=== PATIENT | female | born 1940 | race Caucasian/White ===

== ENCOUNTER 2019-10-09 09:59 | Inpatient (IN) | payer MEDICARE, OTHER ==
[~2019-10-09] VITALS: Ht 160 cm; Wt 115.7 kg
--- NOTE | ~2019-10-09 | HEMODYNAMI ---
PATIENT:STEPHON BANG MEDICAL RECORD: [id number] : 42 LOCATION:[facility] ADMISSION DATE: 10/09/19 Generatedon:10/09/201914:34 Patient name: STEPHON BANG Patient #: [id number] : 1940 Date of study: 10/09/2019 Page: Of Hemodynamic Procedure Report Patient Data Patient Demographics Procedure consent was obtained First Name: STEPHON Gender: Female Last Name: BETI : 1940 [facility] Initial: JULIETTE Age: 79 year(s) Patient #: [id number] Race: SSN: [id number] Additional ID: [id number] Contact details Address: [address] [place] [address] State: [place] City: [place] Zip code: [address] Past Medical History Allergies: No known allergies Admission Admission Data Admission Date: 10/09/2019 Admission Time: 9:59 Arrival Date: 10/09/2019 Arrival Time: 0:00 Admit Source: Other Insurance Payor: Medicare Height (in.): 62.99 BSA: 2.14 (m2) Height (cm.): 160 BMI: 44.92 (kg/m2) Weight (lbs.): 253.53 Weight (kg.): 115 Lab Results Lab Result Date: 10/09/2019 Lab Result Time: 0:00 Biochemistry Name Units Result Min Max BUN mg/dl 15 --(--*-)-- 7 18 eGFR ml/min 51 *-(----)-- 90 120 NONAFRICAN CBC Name Units Result Min Max Hemoglobin g/dl 13.6 --(*---)-- 13.5 17.5 Procedure Procedure Types Cath Procedure Diagnostic Procedure LHC Coronaries only Aortic Root Angiography Procedure Description Procedure Date Procedure Date: 10/09/2019 Procedure Start Time: 14:07 Procedure End Time: 14:31 Procedure Staff Name Function Yaron Garcia MD Performing Physician Brittney Hernandez RT Monitor Margie Raul RT Scrub Fareed Castillo RN Nurse Clarissa Grubbs RT Scrub Procedure Data Cath Procedure Fluoroscopy Diagnostic fluoroscopy Total fluoroscopy Time: 6.5 time: 6.5 min min Diagnostic fluoroscopy Total fluoroscopy dose: dose: 1780 mGy 1780 mGy Contrast Material Contrast Material Type Amount (ml) Isovue 300 104 Entry Location Entry Primary Successful Side Size Upsize Upsize Entry Closure Succes sful Closure Location (Fr) 1 (Fr) 2 (Fr) Remarks Device Remarks Femoral Right 5 Fr Exoseal artery Estimated blood loss: 10 ml Diagnostic catheters Device Type Used For End Catheter Placement MULTIPACK 3DRC 5Fr Procedure catheter MULTIPACK JL 4.0 5Fr Procedure catheter MULTIPACK Pigtail 5 Fr Ventriculography catheter Procedure Complications No complications Procedure Medications Medication Administration Route Dosage Oxygen etCO2 Nasal cannula 4 l/min Lidocaine 2% added to field 20 Heparin Flush Bag added to field 2 bags (1000units/500ml NS) 0.9% NaCl I.V. 100 ml/hr Fentanyl I.V. 50 mcg Hemodynamics Rest BSA: 2.14 (m2) HGB: 13.6 (g/dl) O2 Consumption: Estimated: 212.16 (ml/min) O2 Co nsumption indexed: Estimated:99.14 (ml/min/m) Heart Rate: 93 (bpm) Snapshots Pre Cath Intra NCS Post Cath Vital Signs Time Heart Resp SPO2 etCO2 NIBP (mmHg) Rhythm Pain Sedation Rate (ipm) (%) (mmHg) Status Level (bpm) 13:47:27 81 27 88 0 129/81(108) NSR 0 (11) 10(A) , No pain 13:51:33 90 17 92 0 141/78(105) NSR 0 (11) 10(A) , No pain 13:55:47 89 23 90 0 140/69(106) NSR 0 (11) 10(A) , No pain 13:59:55 79 23 90 0 123/82(101) NSR 0 (11) 10(A) , No pain 14:03:56 79 24 88 0 130/82(103) NSR 0 (11) 10(A) , No pain 14:08:02 73 17 89 0 137/78(117) NSR 0 (11) 10(A) , No pain 14:12:08 82 26 89 0 136/87(109) NSR 0 (11) 10(A) , No pain 14:16:16 78 26 86 0 130/81(104) NSR 0 (11) 10(A) , No pain 14:21:15 82 24 90 0 134/78(100) NSR 0 (11) 10(A) , No pain 14:25:18 94 24 89 0 126/89(115) NSR 0 (11) 10(A) , No pain 14:29:22 82 27 89 0 132/81(108) NSR 0 (11) 10(A) , No pain Medications Time Medication Route Dose Verified Delivered Reason Notes Eff ectiveness by by 13:46:46 Oxygen etCO2 4 Yaron Buffie used for Nasal l/min Jose Castillo RN procedure cannula 13:46:52 Lidocaine 2% added 20ml Yaron Yaron for local to vial Jose Garcia MD anesthetic field 13:47:00 Heparin Flush added 2 Yaron Yaron used for Bag to bags Jose Garcia MD procedure (1000units/500ml field NS) 13:47:23 0.9% NaCl I.V. 100 Yaron Buffie Per ml/hr Jose Castillo RN physician 14:00:47 Fentanyl I.V. 50 Yaron Buffie for back mcg Jose Castillo RN pain Procedure Log Time Note 13:32:20 Diagnostic Cath Status : Elective 13:33:11 Informed consent obtained and on chart 13:38:29 Patient Weight : 253.53 lbs 13:38:35 Patient Height : 62.99 inches 13:38:39 Arrival Date: 10/09/2019 12:00:00 AM 13:38:40 Admit Source: Other 13:38:46 Insurance Payor : Medicare 13:39:25 Lab Result : BUN 15 mg/dl 13:39:25 Lab Result : eGFR NONAFRICAN 51 ml/min 13:39:25 Lab Result : Hemoglobin 13.6 g/dl 13:39:40 Procedure Status Elective Heart Cath (OP). 13:39:43 Fareed Castillo RN sent for patient. Start room use. 13:39:44 Time tracking: Regular hours (M-F 7:00 - 5:00) 13:39:49 Plan of Care:Hemodynamics will remain stable., Cardiac rhythm will remain stable., Comfort level will be maintained., Respiratory function will remain adequate., Patient/ family verbilizes understanding of procedure., Procedure tolerated without complication., Recovers from procedure without complications.. 13:39:56 Patient received from Pre/Post Procedure Room to CCL 2 Alert and oriented. Tansferred to table in Supine position. 13:40:01 Warm blankets applied, and danni hugger turned on for patient comfort. 13:40:02 Correct patient and procedure confirmed by team. 13:40:04 ECG and BP/O2 sat monitors applied to patient. 13:40:52 H&P Date Dictated: 09/26/2019 Within 30 days and on chart., H&P Addendum completed by physician on day of procedure. (MUST COMPLETE FOR ALL OUTPATIENTS). 13:40:54 Pre-procedure instructions explained to patient. 13:40:56 Family in patients room. 13:40:58 Patient NPO since Midnight. 13:41:05 Patient allergic to No known allergies 13:41:09 Is the patient allergic to Iodine/contrast media? No. 13:41:10 Was the patient premedicated? Yes 13:41:24 Is patient on blood thinner?Yes 13:43:10 Patient diabetic? Yes. 13:43:13 If diabetic: On Metformin? No 13:43:18 Previous problem with sedation/anesthesia? No ? 13:43:24 Snore? Yes 13:43:27 Sleep apnea? Yes 13:43:48 ACC The patient was administered the following blood thiners within the last 24 hours: ACCPlavix 13:44:16 Airway obstruction? No ? 13:44:19 Dentures? No ? 13:44:23 Patient pain scale 0/10 ?. 13:44:31 IV patent on arrival in left hand with 0.9% NaCl at KVO. 13:44:37 Lab results completed and on chart. 13:44:46 Stress Test: yes; abnormal laterally 13:44:51 Right groin area was prepped with chlora-prep and draped in sterile fashion 13:44:53 Alarms reviewed by R. N. 13:44:53 Sharps counted by scrub and verified by R.N. 13:44:56 Physician arrived 13:45:04 Use device set Femoral Dx 13:45:07 ACIST Syringe (20901) opened to sterile field. 13:45:08 Bag Decanter (2002S) opened to sterile field. 13:45:09 Medline Cath Pack ([id number]) opened to sterile field. 13:45:10 ACIST Hand Control (89985) opened to sterile field. 13:45:10 ACIST Manifold (44751) opened to sterile field. 13:45:11 DIAGNOSTIC Multipack 5Fr catheter set (UP3005) opened to sterile field. 13:45:17 SHEATH 5FR Mcdonald (UQW743) opened to sterile field. 13:45:19 EMERALD Guide Wire (533-666) opened to sterile field. 13:46:26 Vital chart was started 13:46:46 Oxygen 4 l/min etCO2 Nasal cannula was administered by Fareed Castillo RN; used for procedure; Verbal order read back and verified. 13:46:52 Lidocaine 2% 20ml vial added to field was administered by Yaron Garcia MD; for local anesthetic; Verbal order read back and verified. 13:47:00 Heparin Flush Bag (1000units/500ml NS) 2 bags added to field was administered by Yaron Garcia MD; used for procedure; Verbal order read back and verified. 13:47:23 0.9% NaCl 100 ml/hr I.V. was administered by Fareed Castillo RN; Per physician; Verbal order read back and verified. 13:49:09 Pt transported to laborer plumbing on 3 liters oxygen, Oxygen saturation 89%. Dr Garcia notified and pt placed on 4 liters o2. Pt with abdomen tender and distended with abd pain noted per pt. States last BM yesterday. 13:55:46 --------ALL STOP TIME OUT------ 13:55:50 Final Timeout: patient, procedure, and site verified with staff and physician. All members of the team are in agreement. 13:55:52 Right groin site verified by team. 13:55:58 Fire Safety Assessment: A--An alcohol-based skin anteseptic being used preoperatively., C--Open oxygen or nitrous oxide is being used., D--An ESU, laser, or fiber-optic light is being used. 13:56:07 Physical assessment completed. ASA score P 3 - A patient with severe systemic disease as per Yaron Garcia MD. 13:56:12 2) 60-89 Mildly reduced kidney function, and other findings (as for stage 1) point to kidney disease. 13:56:16 Maximum allowable contrast dose (3.7 X eGFR X 0.75)141 ml. 13:59:15 Baseline sample Acquired. 13:59:18 Rhythm: sinus rhythm 13:59:20 Full Disclosure recording started 14:00:47 Fentanyl 50 mcg I.V. was administered by Fareed Castillo RN; for back pain; Verbal order read back and verified. 14:03:25 Zero performed for pressure channel P1 14:07:26 Procedure started. 14:07:44 Local anesthetic to right femoral artery with Lidocaine 2% by Yaron Garcia MD.INITIAL ACCESS ONLY 14:13:21 A 5 Fr sheath was inserted into the Right Femoral artery 14:14:37 WHOLEY 300cm 0.035 wire ([id number]) opened to sterile field. 14:15:33 A MULTIPACK 3DRC 5Fr catheter was advanced over the wire and used for Procedure. 14:15:39 wholey wire advanced. 14:17:12 RCA angiography performed. 14:18:43 Catheter removed. 14:18:50 A MULTIPACK JL 4.0 5Fr catheter was advanced over the wire and used for Procedure. 14:19:19 LCA angiography performed. 14:22:17 Catheter removed. 14:22:25 A MULTIPACK Pigtail 5 Fr catheter was advanced over the wire and used for Ventriculography. 14:27:54 Aortic Root visualized 14:28:31 Tegaderm 4 x 4 (1626W) opened to sterile field. 14:28:32 EXOSEAL 5Fr (EX500) opened to sterile field. 14:28:37 Catheter removed. 14:28:54 Sheath removed intact; hemostasis achieved with Exoseal to the Right Femoral artery. 14:28:56 Procedure ended.(Physican Out) 14:29:21 Fluoroscopy time 06.50 minutes. :: Fluoroscopy dose: 1780 mGy 14:: Flurop Dose total: 1780 14:29:32 Dose Area Product 971641 mGy/cm. 14:29:37 Contrast amount:Isovue 300 104ml. 14:29:39 Maximum allowable dose exceeded? No. 14::40 Sharps counted by scrub and verified by R.N. 14:30:05 Insertion/operative site no bleeding no hematoma. 14:30:09 Post-op/insertion site Right Femoral artery dressed using a 4 x 4 and Tegaderm. 14:30:11 Post Procedure Pulses reassessed and unchanged 14:30:18 Post-procedure physical assessment completed. ASA score P 4 - A patient with severe systemic disease that is a constant threat to life as per Yaron Garcia MD. 14:30:23 Post procedure rhythm: unchanged. 14:30:26 Estimated blood loss: 10 ml 14:30:27 Post procedure instruction explained to patient.Patient verbalizes understanding. 14:30:56 Procedure type changed to Cath procedure, Diagnostic procedure, LHC, Coronaries only, Aortic Root Angiography 14:30:58 Procedure and supply charges have been captured, reviewed, submitted and are correct. 14:31:19 Procedure Complication : No complications 14:31:22 Vital chart was stopped 14:31:28 [facility] Findings: MVD- MD will discuss options w/ pt 14:31:32 Operative report dictated upon procedure completion. 14:31:33 See physician's report for complete and final results. 14:31:34 Report given to Pre/Post Procedure Room. 14:31:38 Patient transfered to Pre/Post Procedure Room with Stretcher. 14:31:40 Procedure ended. 14:31:40 Full Disclosure recording stopped Device Usage Item Name Manufacture Quantity Catalog Hospital Part Current Minimal L ot# / Number Charge Number Stock Stock Serial# Code ACIST Acist 1 00571 895386 483723 780663 20 Syringe Medical (72372) Systems Inc Bag Microtek 1 2001S 844001 22380 993416 5 Decanter Medical Inc. () Medline Medline 1 [id number] 247204 00050 156448 5 Cath Pack ([id number]) ACIST Hand Acist 1 33249 115938 863496 626847 5 Control Medical (63887) Systems Inc ACIST Acist 1 22241 904463 782303 863140 5 Manifold Medical (11610) Systems Inc DIAGNOSTIC Cardinal 1 JK8066 227497 43084 967726 30 Workboard Health 5Fr catheter set (PJ1520) SHEATH 5FR Terumo 1 GVV175 979103 614581 173575 5 Mcdonald (ELJ117) EMERALD Cardinal 1 502-455 427673 427931 576354 5 Guide Wire Health (502455) WHOLEY Medtronic 1 [id number] 332675 826514 900588 3 300cm 0.035 wire ([id number]) MULTIPACK Cardinal 1 723435 5 3DRC 5Fr Health catheter MULTIPACK Cardinal 1 331628 5 JL 4.0 5Fr Health catheter MULTIPACK Cardinal 1 160018 5 Pigtail 5 Health Fr catheter Tegaderm 4 3M 1 1626W 840244 323315 436248 5 x 4 (1626W) EXOSEAL 5Fr Cardinal 1 EX500 467396 418797 516096 10 (EX500) Health Signature Audit [place] Stage Time Signature Unsigned Intra-Procedure 10/09/2019 Brittney Hernandez 2:31:55 PM RT(R); Fareed Castillo RN; Yaron Garcia MD Signatures Performing Physician : Signature : Yaron Garcia MD Date : Time : Monitor : Brittney Hernandez Signature : RT Date : Time : Nurse : Fareed Castillo RN Signature : Date : Time : [facility] [address] [place] [address]
[2019-10-09] MEDS ORDERED: ALENDRONATE SOD35 MG PO (10:37)
[2019-10-09] MEDS ORDERED: ZETIA10 MG PO (10:38)
[2019-10-09] MEDS ORDERED: NORVASC10 MG PO (10:38)
[2019-10-09] MEDS ORDERED: PLAVIX75 MG PO (10:38)
[2019-10-09] MEDS ORDERED: ZESTRIL20 MG PO (10:38)
[2019-10-09] MEDS ORDERED: FUROSEMIDE40 MG PO (10:39)
[2019-10-09] MEDS ORDERED: GLUCOTROL 5 MG T5 MG PO (10:39)
[2019-10-09] MEDS ORDERED: RANITIDINE HCL150 M1 PO (10:39)
[2019-10-09] MEDS ORDERED: SYNTHROID75 MCG PO (10:40)
[2019-10-09] MEDS ORDERED: ZYRTEC10 MG PO (10:40)
[2019-10-09] MEDS ORDERED: LIPITOR40 MG PO (10:40)
[2019-10-09] MEDS ORDERED: FLUTICASONE PRO16 GM NASAL (10:40)
[2019-10-09] MEDS ORDERED: VENTOLIN HFA [SP8 GM INH (10:41)
[2019-10-09] MEDS ORDERED: ACETAMINOPHEN500 M1 PO (10:41)
[2019-10-09] MEDS ORDERED: IPRAT-ALBUT 0.5-3 ML UPD (10:42)
[2019-10-09] MEDS ORDERED: KLOR-CON 1010 MEQ PO (10:42)
[2019-10-09] MEDS ORDERED: LIDODERM 5 %1 PATCH TRANSDERM (10:44)
[2019-10-09 11:03] VITALS: BP 152/77; BMI 45.2
--- NOTE | 2019-10-09 11:05 | NUR ---
SPOKE WITH DR. DOTSON REGARDING INITIAL RESPIRATORY STATUS OF 79-81% SPO2 ON ROOM AIR AND RESPIRATORY RATE OF 30 RESPIRATIONS PER MINUTE. PATIENT PLACED ON 3L NC WITH OXYGEN SATURATION OF 92% AND RESPIRATORY RATE OF 28 PER MINUTE. PHYSICIAN AWARE, WILL CONTINUE PREPPING PATIENT FOR PROCEDURE.
[2019-10-09 11:19] LABS: HEMATOCRIT 42.9 % (36.0-48.0); HEMOGLOBIN 13.6 g/dL (12-16); LYMPHOCYTES 9.7 % (15-50); MCH 30.9 pg (26.0-34.0); MCHC 31.7 g/dL (31.0-37.0); MCV 97.5 fL (80.0-100.0); MEAN PLATELET VOLUME 8.8 fL (7.4-10.4); NEUTROPHILS 84.9 % (40-80); PLATELET COUNT 273 10x3/uL (130-400); RDW 13.5 % (11.5-14.5); WBC 8.1 10x3/uL (4.8-10.8)
[2019-10-09 11:38] LABS: ANION GAP 11.2 mmol/L (8-16); CALCIUM 7.8 mg/dL (8.5-10.1); CARBON DIOXIDE 32.8 mmol/L (21.0-32.0); CREATININE - SERUM 1.1 mg/dL (0.6-1.3)
[2019-10-09 15:02] VITALS: BP 120/70; BMI 45.2
--- NOTE | 2019-10-09 16:46 | NUR ---
BED REST UP. GROIN STABLE.
[2019-10-09 17:43] VITALS: BP 122/76
[2019-10-09 20:00] VITALS: BP 113/56
--- NOTE | 2019-10-09 21:32 | NUR ---
EVENING ROUNDS, AAOX3, AFVSS, PT ON 15L HF NC. O2SAT 92. ASSIST PT UP ON THE BED RAMOS. ABD APPEARS DISTENDED AND FIRM. PT DENIES PAIN. ALTHOUGH STATES SHE IS UNCOMFORTABLE IN BED. FAMILY @BEDSIDE. PT DENIES ANY FURTHER NEEDS AT THIS TIME. CPAP AT BEDSIDE. WILL CTM. CL WITHIN REACH, BED IN LOW, SR UP X2.
[2019-10-10] VITALS: BP 124/68
[2019-10-10 04:00] VITALS: BP 132/76
[2019-10-10 10:30] VITALS: BMI 45.1
[2019-10-10 13:49] VITALS: Ht 160 cm; Wt 115.7 kg
[2019-10-10 14:13] LABS: ANION GAP 8.2 mmol/L (8-16); CALCIUM 7.7 mg/dL (8.5-10.1); CARBON DIOXIDE 36.8 mmol/L (21.0-32.0); CREATININE - SERUM 1.2 mg/dL (0.6-1.3)
[2019-10-10 14:15] LABS: HEMATOCRIT 43.3 % (36.0-48.0); HEMOGLOBIN 13.4 g/dL (12-16); INR 1.02 (0.85-1.17); LYMPHOCYTES 4.9 % (15-50); MCH 30.6 pg (26.0-34.0); MCHC 30.9 g/dL (31.0-37.0); MCV 98.9 fL (80.0-100.0); MEAN PLATELET VOLUME 8.7 fL (7.4-10.4); NEUTROPHILS 87.2 % (40-80); PLATELET COUNT 280 10x3/uL (130-400); PROTIME 13.3 SECONDS (11.6-15.0); RBC 4.38 10x6/uL (4.00-5.40); RDW 13.2 % (11.5-14.5); WBC 9.4 10x3/uL (4.8-10.8)
[2019-10-10 14:16] LABS: D-DIMER-QUANTITATIVE 0.92 ug/mLFEU (0.20-0.54)
[2019-10-10 14:38] LABS: BILIRUBIN NEGATIVE (NEGATIVE); GLUCOSE NEGATIVE (NEGATIVE); KETONE NEGATIVE (NEGATIVE); NITRITE NEGATIVE (NEGATIVE); UROBILINOGEN NORMAL (NORMAL)
[2019-10-10 14:39] LABS: BACTERIA FEW /hpf (NEGATIVE); EPITHELIAL CELLS OCC /hpf (0-5); RED CELLS - URINE OCC /hpf (0-5); WHITE CELLS - URINE 0-5 /hpf (NEGATIVE)
--- NOTE | 2019-10-10 16:36 | MORECARE ---
CASE MANAGEMENT DISCHARGE SUMMARY PATIENT: STEPHON BANG UNIT: [id number] ADM DATE: 10/10/19 AGE: 79 : 41 SEX: F [facility] AUTHOR: HARVEY RAMIREZ PHYSICIAN: REFERRING PHYSICIAN: COLLETTE ARIAS MD DATE OF SERVICE: 10/10/19 Discharge Plan Patient Name: STEPHON BANG Facility: [facility]:[place] : 1940 Planned Disposition: Anticipated Discharge Date: Discharge Date: Expected LOS: Initial Reviewer: [email or web address] Initial Review Date: 10/10/2019 Generated: 10/10/19 5:35 pm DCP- Discharge Planning Updated by [email or web address]: Priya Hernandez on 10/10/19 8:[address] JIMENEZ SERVED, EXPLAINED, AND SIGNED BY PATIENT. THE ORIGINAL WAS PROVIDED TO THE PATIENT AND COPY PLACED ON CHART. Coverage Notice Reviewer: [id number] - Priya Hrenandez Notice Issued Date-Time: 10/10/2019 7:55 Notice Type: Medicare Outpatient Observation Notice Notice Delivered To: Patient Relationship to Patient: Surgical Consultant Name: Delivery Method: MAIL - Mail Christina Days: Prior Verbal Notification: Recipient Understood Notice: Yes Recipient Signature: Yes Med Rec Note Co-signed by Attending: Coverage Notice Comment: JIMENEZ SERVED, EXPLAINED, AND SIGNED BY PATIENT. THE ORIGINAL WAS PROVIDED TO THE PATIENT AND COPY PLACED ON CHART. Patient Name: STEPHON BANG Page [phone] at 1636 All edits/amendments must be made on the electronic document DICTATION DATE: 10/10/19 1635 CUFFING MACHINE OPERATOR: SANDRA 10/10/19 1635 RPT#: [id number] DC DATE: STATUS: ADM IN [facility] [address] [place] [address] END OF REPORT
--- NOTE | 2019-10-10 16:44 | MORECARE ---
CASE MANAGEMENT DISCHARGE SUMMARY PATIENT: STEPHON BANG UNIT: [id number] ADM DATE: 10/10/19 AGE: 79 : 41 SEX: F ROOM/BED: D.1467 AUTHOR: ASHLEY,DOC PHYSICIAN: REFERRING PHYSICIAN: COLLETTE ARIAS MD DATE OF SERVICE: 10/10/19 Discharge Plan Patient Name: STEPHON BANG Facility: [facility]:[place] : 1940 Planned Disposition: Anticipated Discharge Date: Discharge Date: Expected LOS: Initial Reviewer: [email or web address] Initial Review Date: 10/10/2019 Generated: 10/10/19 5:44 pm DCP- Discharge Planning Updated by LUBA Hernandez on 10/10/19 8:[address] JIMENEZ SERVED, EXPLAINED, AND SIGNED BY PATIENT. THE ORIGINAL WAS PROVIDED TO THE PATIENT AND COPY PLACED ON CHART. DCPIA - Discharge Planning Initial Assessment Updated by JOSE A: Priya Hernandez on 10/10/19 4:36 pm * Is the patient Alert and Oriented? Yes * How many steps to enter\exit or inside your home? 0/0 * PCP ELPIDIO ACOSTA [phone] * Pharmacy [facility]/ [facility] * Preadmission Environment Home with Family * ADLs Partial Dependent * Partial ADLs (Assistance needed) Bathing Dressing * Equipment Bedside Commode CPAP Elevated Toliet Seat Nebulizer Rolling Walker Shower Chair * List name and contact numbers for known caregivers / representatives who currently or will assist patient after discharge: SON: RILEY [phone] * Verbal permission to speak to the caregivers and representatives has been obtained from the patient. Yes * Community resources currently utilized None * Additional services required to return to the preadmission environment? Yes * Can the patient safely return to the preadmission environment? No * Has this patient been hospitalized within the prior 30 days at any hospital? No Coverage Notice Reviewer: [email or web address] - Priya Hernandez Notice Issued Date-Time: 10/10/2019 7:55 Notice Type: Medicare Outpatient Observation Notice Notice Delivered To: Patient Relationship to Patient: Superintendent Stations Name: Delivery Method: MAIL - Mail Christina Days: Prior Verbal Notification: Recipient Understood Notice: Yes Recipient Signature: Yes Med Rec Note Co-signed by Attending: Coverage Notice Comment: BARBARA SERVED, EXPLAINED, AND SIGNED BY PATIENT. THE ORIGINAL WAS PROVIDED TO THE PATIENT AND COPY PLACED ON CHART. Reviewer: [email or web address] Nicole Hernandez Notice Issued Date-Time: 10/10/2019 16:15 Notice Type: Patient Choice Letter Notice Delivered To: Patient Relationship to Patient: Superintendent Stations Name: Delivery Method: HAND - Hand Delivered Christina Days: Prior Verbal Notification: Recipient Understood Notice: Yes Recipient Signature: Yes Med Rec Note Co-signed by Attending: Coverage Notice Comment: DAREN SIGNED TO [facility]UME [facility] PATIENT Last DP export: 10/10/19 3:36 p Patient Name: STEPHON BANG Page [phone] at 1644 All edits/amendments must be made on the electronic document DICTATION DATE: 10/10/191643 FURNITURE ASSOCIATE: SANDRA 10/10/194 RPT#: [id number] DC DATE: STATUS: ADM IN [facility] [address] [place] [address] END OF REPORT
--- NOTE | 2019-10-10 17:01 | MORECARE ---
CASE MANAGEMENT DISCHARGE SUMMARY PATIENT: STEPHON BANG UNIT: [id number] ADM DATE: 10/10/19 AGE: 79 : 41 SEX: F ROOM/BED: D.0114 AUTHOR: ASHLEY,DOC PHYSICIAN: REFERRING PHYSICIAN: COLLETTE ARIAS MD DATE OF SERVICE: 10/10/19 Discharge Plan Patient Name: STEPHON BANG Facility: [facility]:[place] : 1940 Planned Disposition: Home Anticipated Discharge Date: Discharge Date: Expected LOS: Initial Reviewer: [email or web address] Initial Review Date: 10/10/2019 Generated: 10/10/19 6:01 pm Comments DCP- Discharge Planning Updated by [email or web address]: Priya Hernandez on 10/10/19 3:[address] Patient Name: STEPHON BANG Admission Status: Elective Accout number: [id number] Admission Date: 10-10-2019 : 1940 Admission Diagnosis: Attending: COLLETTE ARIAS Current LOS: 1 Planned Disposition: Primary Insurance: MEDICARE A & B Discharge Planning Comments: CM met with patient and Riley (son) to complete initial dc planning assessment. CM educated patient on the CM role and verbal consent given by patient to complete assessment. CM verified patient's address, phone number, and emergency contact phone numbers. Patient lives at home with her and son (Riley). Pt has home CPAP and nebulizer. States she had oxygen at one time. DAREN signed to resume [place] home patient. CM discussed the possibility of oxygen testing at home. CM discussed the possibility of home health and/or rehab. Patient refused at this time. CM stated we will follow patient status during hospitalization and assist as needed. At discharge patient plans to return home and feels this is a safe discharge. Transportation provider at discharge will be Riley [phone] . CM will continue to follow and will assist as needed with dc plans/needs. Linux Network Administrator: Priya Hernandez MSN,RN,CM DCP- Discharge Planning Updated by [email or web address]: Priya Hernandez on 10/10/19 8:[address] JIMENEZ SERVED, EXPLAINED, AND SIGNED BY PATIENT. THE ORIGINAL WAS PROVIDED TO THE PATIENT AND COPY PLACED ON CHART. DCPIA - Discharge Planning Initial Assessment Updated by [id number]: Priya Hernandez on 10/10/19 4:36 pm * Is the patient Alert and Oriented? Yes * How many steps to enter\exit or inside your home? 0/0 * PCP ELPIDIO ACOSTA [phone] * [facility] * Preadmission Environment Home with Family * ADLs Partial Dependent * Partial ADLs (Assistance needed) Bathing Dressing * Equipment Bedside Commode CPAP Elevated Tol[place] Seat Nebulizer Rolling Walker Shower Chair * List name and contact numbers for known caregivers / representatives who currently or will assist patient after discharge: SON: RILEY [phone] * Verbal permission to speak to the caregivers and representatives has been obtained from the patient. Yes * Community resources currently utilized None * Additional services required to return to the preadmission environment? Yes * Can the patient safely return to the preadmission environment? No * Has this patient been hospitalized within the prior 30 days at any hospital? No Coverage Notice Reviewer: [id number] Hernandez Notice Issued Date-Time: 10/10/2019 7:55 Notice Type: Medicare Outpatient Observation Notice Notice Delivered To: Patient Relationship to Patient: Relief Worker Name: Delivery Method: MAIL - Mail Christina Days: Prior Verbal Notification: Recipient Understood Notice: Yes Recipient Signature: Yes Med Rec Note Co-signed by Attending: Coverage Notice Comment: JIMENEZ SERVED, EXPLAINED, AND SIGNED BY PATIENT. THE ORIGINAL WAS PROVIDED TO THE PATIENT AND COPY PLACED ON CHART. Reviewer: [email or web address] Hernandez Notice Issued Date-Time: 10/10/2019 16:15 Notice Type: Patient Choice Letter Notice Delivered To: Patient Relationship to Patient: Relief Worker Name: Delivery Method: HAND - Hand Delivered Christina Days: Prior Verbal Notification: Recipient Understood Notice: Yes Recipient Signature: Yes Med Rec Note Co-signed by Attending: Coverage Notice Comment: DAREN SIGNED TO RESUME [facility] PATIENT Last DP export: 10/10/19 3:44 p Patient Name: STEPHON BANG Page [phone] at 1701 All edits/amendments must be made on the electronic document DICTATION DATE: 10/10/191700 GLUING MACHINE OPERATOR AUTOMATIC: SANDRA 10/10/191700 RPT#: [id number] DC DATE: STATUS: ADM IN [facility] [address] [place] [address] END OF REPORT
[2019-10-10 17:33] VITALS: BP 111/74
[2019-10-10 19:19] VITALS: BP 123/69
--- NOTE | 2019-10-10 19:59 | NUR ---
EVENING ROUNDS COMPLETED. AAOX4, AFVSS, NO S/S OF RT DISTRESS. ALTHOUGH O2SAT 90 ON 10L HF. PUREWICK INTACT AND DRAINING. ABD APPEARS DISTENDED/FIRM. PT DENIES ANY FURTHER NEEDS AT THIS TIME. WILL CPOC. CL WITHIN REACH, BED IN LOW, SR UP X2.
[2019-10-11 00:33] VITALS: BP 116/520
[2019-10-11 04:56] VITALS: BP 140/75
[2019-10-11 08:23] VITALS: BP 109/70
[2019-10-11 11:53] LABS: HEMATOCRIT 42.4 % (36.0-48.0); LYMPHOCYTES 5.3 % (15-50); MCH 30.2 pg (26.0-34.0); MCHC 30.7 g/dL (31.0-37.0); MCV 98.4 fL (80.0-100.0); MEAN PLATELET VOLUME 8.9 fL (7.4-10.4); PLATELET COUNT 249 10x3/uL (130-400); RBC 4.31 10x6/uL (4.00-5.40); RDW 13.2 % (11.5-14.5); WBC 9.7 10x3/uL (4.8-10.8)
[2019-10-11 11:55] LABS: ANION GAP 9.9 mmol/L (8-16); CALCIUM 7.9 mg/dL (8.5-10.1); CARBON DIOXIDE 35.5 mmol/L (21.0-32.0); CREATININE - SERUM 1.1 mg/dL (0.6-1.3); POTASSIUM - SERUM 3.4 mmol/L (3.5-5.1)
[2019-10-11 15:35] VITALS: BP 126/81
--- NOTE | 2019-10-11 20:00 | NUR ---
REPORT RECIEVED AND ROUNDING COMPLETE. PATIENT LAYING IN BED IN LOW FOWLERS. REQUESTING RT COME AND PU HIM ON BIPAP AND FIX MASK BECAUSED IT DOSENT FIT. WILL PAGE RT. WEARING NASAL CANNULA WITH O2 AT 15L. RIGHT AC PIV THAT IS SALINE LOCKED, PATENT WHEN FLUSHED WITH NO S/SX OF INFILTRATION. NO OTHER NEEDS AT THIS TIME. NO S/SX OF DISTRESS. CALL LIGHT WITHIN REACH AND BED IN LOWEST LOCKED POSITION.
[2019-10-11 21:39] VITALS: BP 115/65
[2019-10-12] VITALS: BP 109/62
[2019-10-12 04:00] VITALS: BP 114/56
[2019-10-12 06:02] LABS: CALCIUM 7.9 mg/dL (8.5-10.1); CARBON DIOXIDE 34.4 mmol/L (21.0-32.0); CREATININE - SERUM 1.1 mg/dL (0.6-1.3); POTASSIUM - SERUM 3.4 mmol/L (3.5-5.1)
[2019-10-12 07:56] LABS: HEMATOCRIT 41.3 % (36.0-48.0); HEMOGLOBIN 12.3 g/dL (12-16); MCH 30.6 pg (26.0-34.0); MCHC 29.8 g/dL (31.0-37.0); MEAN PLATELET VOLUME 9.9 fL (7.4-10.4); PLATELET COUNT 247 10x3/uL (130-400); RBC 4.02 10x6/uL (4.00-5.40); RDW 14.3 % (11.5-14.5); WBC 8.5 10x3/uL (4.8-10.8)
[2019-10-12 08:02] LABS: MCV 102.7 fL (80.0-100.0)
[2019-10-12 09:16] VITALS: BP 112/54
[2019-10-12 11:01] LABS: ANISOCYTOSIS OCC; EOSINOPHILS 1 % (0-7); LYMPHOCYTES 5 % (15-50); MONOCYTES 10 % (2-11); NEUTROPHILS 83 % (40-80); PLATELET ESTIMATE NORMAL
[2019-10-12 14:18] VITALS: BP 103/53
[2019-10-12 18:14] VITALS: BP 105/59
--- NOTE | 2019-10-12 19:21 | NUR ---
RECEIVED BEDSIDE REPORT. PATIENT IS ALERT AND PLEASANTLY CONFUSED. RESPIRATIONS ARE EVEN AND UNLABORED. NO S/S OF DISTRESS. NO C/O PAIN. CALLLIGHT WITHIN REACH. WILL CPOC.
[2019-10-12 20:00] VITALS: BP 111/60
[2019-10-13 05:41] LABS: BASOPHILS 0.3 % (0-2); EOSINOPHILS 3.6 % (0-7); HEMATOCRIT 39.8 % (36.0-48.0); IMMATURE GRANULOCYTES 0.3 % (0-5); LYMPHOCYTES 8.2 % (15-50); MCH 30.5 pg (26.0-34.0); MCHC 30.2 g/dL (31.0-37.0); MEAN PLATELET VOLUME 9.4 fL (7.4-10.4); MONOCYTES 11.2 % (2-11); NEUTROPHILS 76.4 % (40-80); PLATELET COUNT 234 10x3/uL (130-400); RBC 3.94 10x6/uL (4.00-5.40); RDW 14.3 % (11.5-14.5); WBC 7.3 10x3/uL (4.8-10.8)
[2019-10-13 06:11] LABS: ANION GAP 10.5 mmol/L (8-16); CALCIUM 7.6 mg/dL (8.5-10.1); CARBON DIOXIDE 31.5 mmol/L (21.0-32.0); CREATININE - SERUM 1.4 mg/dL (0.6-1.3)
--- NOTE | 2019-10-13 07:15 | NUR ---
RECEIVED PT IN BED EYES CLOSED RESP UNLABORED O2 15 LPM HIGH FLOW CANNULA DENNIES ANY PAIN OR NEEDS AT THIS TIME
[2019-10-13 08:56] VITALS: BP 125/72
[2019-10-13 13:07] VITALS: BP 136/78
--- NOTE | 2019-10-13 13:58 | NUR ---
Nutrition follow-up: Diet: ADA consistent CHO PO Intake ~60% average of last 6 meals Labs reviewed Wt: 255# Will continue to provide food choices and honor food preferences within diet restrictions. RDN following.
[2019-10-13 17:01] VITALS: BP 146/58
--- NOTE | 2019-10-13 19:30 | NUR ---
REPORT RECIEVED AND INITIAL ROUNDS COMPLETED. PT RESTING IN BED WITH BIPAP IN PLACE. RIGHT A/C PIV WITH NS @ KVO. ABRASION TO LEFT HAND. SR PER TELEMETRY. SEE ASSESSMENT. CPOC. CALL LIGHT IN REACH.
[2019-10-13 21:00] VITALS: BP 144/68
--- NOTE | 2019-10-13 22:00 | NUR ---
BEDTIME MEDS ADMINISTERED. PT RESTING WITH BIPAP IN PLACE. SR PER TELEMETRY. CALL LIGHT IN REACH. CPOC.
--- NOTE | 2019-10-14 02:18 | NUR ---
REQUESTED PAIN MED GIVEN FOR GENERALIZED DISCOMFORT 04/27.
--- NOTE | 2019-10-14 04:22 | NUR ---
PT ASSISTED UP TO BSC TO HAVE A FORMED BM. PUREWICK NO LONGER IN PLACE AND BED IS WET. CARE PROVIDED, LINENS CHANGED. RT TO ROOM TO ADJUST BIPAP HEADGEAR WHEN PT KEPT SAYING IT WAS TOO MUCH PRESSURE ON HER TEETH AND EYES, EVEN AFTER MULTIPLE ATTEMPTS BY NURSE TO REPOSITION. PT NOW RESTING. CALL LIGHT IN REACH. CLEAN/DRY AND NEW PUREWICK IN PLACE TO WALL SUCTION.
[2019-10-14 05:04] LABS: BASOPHILS 0.2 % (0-2); EOSINOPHILS 4.4 % (0-7); HEMATOCRIT 39.5 % (36.0-48.0); HEMOGLOBIN 11.8 g/dL (12-16); IMMATURE GRANULOCYTES 0.3 % (0-5); MCH 30.2 pg (26.0-34.0); MCHC 29.9 g/dL (31.0-37.0); MEAN PLATELET VOLUME 9.5 fL (7.4-10.4); MONOCYTES 8.3 % (2-11); NEUTROPHILS 78.8 % (40-80); PLATELET COUNT 240 10x3/uL (130-400); RBC 3.91 10x6/uL (4.00-5.40); RDW 14.5 % (11.5-14.5); WBC 6.6 10x3/uL (4.8-10.8)
[2019-10-14 05:21] LABS: ANION GAP 8.6 mmol/L (8-16); CARBON DIOXIDE 31.1 mmol/L (21.0-32.0); CREATININE - SERUM 1.2 mg/dL (0.6-1.3); POTASSIUM - SERUM 3.7 mmol/L (3.5-5.1)
--- NOTE | 2019-10-14 07:15 | NUR ---
RECEIVED PT IN BED EYES CLOSED RESP UNLABORED SKIN W/D COLOR WNL NAD NTED
[2019-10-14 08:00] VITALS: BP 111/63
[2019-10-14 12:23] VITALS: BP 106/61
[2019-10-14 17:15] VITALS: BP 110/70
--- NOTE | 2019-10-14 19:45 | NUR ---
REPORT RECIEVED AND INITIAL ROUNDS COMPLETED. AWAKE/ALERT, CURRENTLY ON HIGH FLOW N/C AND ALREADY ASKING WHEN SHE CAN GET ON HER BIPAP. BREATHING TX'S AND BEDTIME MEDS WILL BE GIVEN AND THEN PLACED ON BIPAP. PT HAD VERY LARGE/SOFT FORMED BM DURING CHANGE OF SHIFT. SECURED PLACEMENT OF PUREWICK AT THIS TIME BECAUSE PT FELT IS WAS "NOT RIGHT".
[2019-10-14 20:20] VITALS: BP 128/78
--- NOTE | 2019-10-14 21:30 | NUR ---
ALL BEDTIME MEDS GIVEN. PT CLEAN/DRY. RT CALLED THAT PT IS READY FOR BIPAP.
--- NOTE | 2019-10-14 23:51 | NUR ---
PT NOW RESTING WITH EYES CLOSED. BIPAP IN PLACE. NO DISTRESS. CPOC.
[2019-10-15 00:54] VITALS: BP 128/60
[2019-10-15 04:39] LABS: BASOPHILS 0.3 % (0-2); EOSINOPHILS 4.2 % (0-7); HEMATOCRIT 39.4 % (36.0-48.0); HEMOGLOBIN 11.6 g/dL (12-16); IMMATURE GRANULOCYTES 0.3 % (0-5); LYMPHOCYTES 7.8 % (15-50); MCH 30.1 pg (26.0-34.0); MCHC 29.4 g/dL (31.0-37.0); MCV 102.1 fL (80.0-100.0); MEAN PLATELET VOLUME 9.1 fL (7.4-10.4); MONOCYTES 9.5 % (2-11); NEUTROPHILS 77.9 % (40-80); PLATELET COUNT 228 10x3/uL (130-400); RBC 3.86 10x6/uL (4.00-5.40); RDW 14.3 % (11.5-14.5); WBC 6.6 10x3/uL (4.8-10.8)
[2019-10-15 04:57] LABS: ANION GAP 10.9 mmol/L (8-16); CALCIUM 8.1 mg/dL (8.5-10.1); CARBON DIOXIDE 30.4 mmol/L (21.0-32.0); CREATININE - SERUM 1.2 mg/dL (0.6-1.3)
[2019-10-15 04:59] LABS: POTASSIUM - SERUM 4.3 mmol/L (3.5-5.1)
--- NOTE | 2019-10-15 06:57 | NUR ---
REPORT TO ONCOMING NURSE. PT HAS RESTED WELL THIS NIGHT, KEPT BIPAP ON MOST OF THE NIGHT. PT WITH PUREWICK IN PLACE. AWAKE NOW WITH O2 @ 6L/HFNC. CPOC.
--- NOTE | 2019-10-15 07:20 | NUR ---
RECIEVE REPORT. ALERT AND ORIENTED X4. RECIEVING UPDRAFT. DENIES ANY NEEDS AT THIS TIME. CONTINUE PLAN OF CARE AND SAFETY PRECAUTIONS.
[2019-10-15 08:00] VITALS: BP 132/69
--- NOTE | 2019-10-15 10:31 | NUR ---
ALERT AND ORIENTED X4. SITTING UP IN CHAIR. LINEN CHANGE AND SPONGE BATH COMPLETE. DENIES ANY OTHER NEEDS AT THIS TIME. CONTINUE PLAN OF CARE AND SAFETY PRECAUTIONS.
[2019-10-15 15:38] VITALS: BP 129/69
--- NOTE | 2019-10-15 19:30 | NUR ---
VENOUS DOPPLER COMPLETED PER ULTRASOUND REPORT RECIEVED AND INITIAL ROUNDS COMPLETED. PT RESTING IN BED WITH NO DISTRESS. C/O FEELING "GOOPY" AFTER ULTRASOUND COMPLETED. COMPLETE WIPE DOWN DONE ON PT'S "GOOPY" AREAS. CURRENTLY WEARING O2 @ 8L/HFNC AND SAT ONLY 88%. PT STATES FEELING SOB. PLACED ON BIPAP. PUREWICK IN PLACE AND DRAINING. PT C/O BEING HOT, REMOVED ONE EXTRA BLANKET OFF HER AT HER REQUEST. CALL LIGHT IN REACH.
[2019-10-15 21:00] VITALS: BP 127/82; BP 137/73
--- NOTE | 2019-10-15 22:43 | NUR ---
BEDTIME MEDS GIVEN. PT RESTING IN BED WITH NO FURTHER NEEDS VOICED. CPOC.
[2019-10-16 04:04] VITALS: BP 112/74
[2019-10-16 04:37] LABS: BASOPHILS 0.3 % (0-2); EOSINOPHILS 4.2 % (0-7); HEMATOCRIT 40.1 % (36.0-48.0); HEMOGLOBIN 11.9 g/dL (12-16); IMMATURE GRANULOCYTES 0.3 % (0-5); LYMPHOCYTES 9.2 % (15-50); MCH 30.1 pg (26.0-34.0); MCHC 29.7 g/dL (31.0-37.0); MCV 101.5 fL (80.0-100.0); MEAN PLATELET VOLUME 9.6 fL (7.4-10.4); MONOCYTES 7.6 % (2-11); NEUTROPHILS 78.4 % (40-80); PLATELET COUNT 242 10x3/uL (130-400); RBC 3.95 10x6/uL (4.00-5.40); RDW 14.1 % (11.5-14.5); WBC 6.9 10x3/uL (4.8-10.8)
[2019-10-16 04:47] LABS: ANION GAP 11.3 mmol/L (8-16); CALCIUM 7.8 mg/dL (8.5-10.1); CARBON DIOXIDE 29.5 mmol/L (21.0-32.0); POTASSIUM - SERUM 4.8 mmol/L (3.5-5.1)
[2019-10-16 08:14] VITALS: BP 123/52
--- NOTE | 2019-10-16 10:09 | NUR ---
ALERT AND ORIENTED X4. PHYSICAL THERAPY ASSIST OOB TO CHAIR. SPONGE BATH AND LINEN CHANGE COMPLETE. SINUS RYTHM 90 ON TELEMETRY. DENIES ANY NEEDS AT THIS TIME. CONTINUE PLAN OF CARE AND SAFETY PRECAUTIONS.
[2019-10-16 15:13] VITALS: BP 120/67
[2019-10-16 19:00] VITALS: BP 136/72
--- NOTE | 2019-10-16 19:27 | NUR ---
RECEIVED BEDSIDE REPORT. PATIENT IS ALERT AND ORIENTED. RESTING COMFORTABLY IN BED. RESPIRATIONS ARE EVEN AND UNLABORED. NO S/S OF DISTRESS. NO C/OPAIN. CALL LIGHT WITHIN REACH. WILL CPOC.
[2019-10-17 04:42] LABS: BASOPHILS 0.1 % (0-2); EOSINOPHILS 3.7 % (0-7); HEMATOCRIT 40.5 % (36.0-48.0); HEMOGLOBIN 12.2 g/dL (12-16); IMMATURE GRANULOCYTES 0.3 % (0-5); LYMPHOCYTES 9.2 % (15-50); MCH 30.1 pg (26.0-34.0); MCHC 30.1 g/dL (31.0-37.0); MEAN PLATELET VOLUME 9.7 fL (7.4-10.4); MONOCYTES 8.5 % (2-11); NEUTROPHILS 78.2 % (40-80); PLATELET COUNT 257 10x3/uL (130-400); RBC 4.05 10x6/uL (4.00-5.40); WBC 7.1 10x3/uL (4.8-10.8)
[2019-10-17 05:01] LABS: ALBUMIN 2.6 g/dL (3.4-5.0); ANION GAP 11.7 mmol/L (8-16); BILIRUBIN - TOTAL 0.4 mg/dL (0.2-1.3); CALCIUM 8.4 mg/dL (8.5-10.1); CARBON DIOXIDE 29.1 mmol/L (21.0-32.0); CREATININE - SERUM 1.2 mg/dL (0.6-1.3); MAGNESIUM - SERUM 2.3 mg/dL (1.8-2.4); PHOSPHOROUS 3.6 mg/dL (2.5-4.9); POTASSIUM - SERUM 4.8 mmol/L (3.5-5.1); PROTEIN - SERUM 6.4 g/dL (6.4-8.2)
[2019-10-17 05:29] VITALS: BP 145/78
[2019-10-17 07:54] VITALS: BP 128/61
--- NOTE | 2019-10-17 10:18 | NUR ---
UP TO CHAIR WITH PT ASSIST. WILL CONT. PLAN OF CARE.
[2019-10-17 10:56] VITALS: BP 139/58
--- NOTE | 2019-10-17 14:21 | NUR ---
CONSENTS SIGNED. TO FRONT LINE SUPERVISOR BY BED FOR PACEMAKER PLACEMENT.
[2019-10-17 14:52] VITALS: BP 127/66
--- NOTE | 2019-10-17 15:15 | NUR ---
IV RESTARTED TO RIGHT HAND WITH 22 GAUGE CATH X 1 STICK AND FLUSHED WITH NS. LINE IS PATENT.
[2019-10-17 19:00] VITALS: BP 151/69
--- NOTE | 2019-10-17 19:26 | NUR ---
RECEIVED BEDSIDE REPORT. PATIENT IS ALERT AND ORIENTED, RESTING COMFORTABLY IN BED. RESPIRATIONS ARE EVEN AND UNLABORED. NO S/S OF DISTRESS. NO C/O PAIN. CALL LIGHT WITHIN REACH. WILL CPOC.
[2019-10-18 04:37] VITALS: BP 144/86
[2019-10-18 07:06] LABS: BASOPHILS 0.1 % (0-2); EOSINOPHILS 4.6 % (0-7); HEMATOCRIT 43.6 % (36.0-48.0); HEMOGLOBIN 12.9 g/dL (12-16); IMMATURE GRANULOCYTES 0.4 % (0-5); LYMPHOCYTES 7.9 % (15-50); MCH 29.5 pg (26.0-34.0); MCHC 29.6 g/dL (31.0-37.0); MCV 99.5 fL (80.0-100.0); MEAN PLATELET VOLUME 9.8 fL (7.4-10.4); MONOCYTES 8.4 % (2-11); NEUTROPHILS 78.6 % (40-80); PLATELET COUNT 292 10x3/uL (130-400); RBC 4.38 10x6/uL (4.00-5.40); RDW 13.9 % (11.5-14.5); WBC 7.6 10x3/uL (4.8-10.8)
[2019-10-18 07:47] LABS: ALBUMIN 2.9 g/dL (3.4-5.0); ANION GAP 12.6 mmol/L (8-16); BILIRUBIN - TOTAL 0.44 mg/dL (0.2-1.3); CALCIUM 8.2 mg/dL (8.5-10.1); CARBON DIOXIDE 30.4 mmol/L (21.0-32.0); CREATININE - SERUM 1.2 mg/dL (0.6-1.3); PROTEIN - SERUM 6.1 g/dL (6.4-8.2)
[2019-10-18 09:30] VITALS: BP 133/71
--- NOTE | 2019-10-18 10:01 | NUR ---
UP TO CHAIR WITH PT ASSIST.
[2019-10-18 13:44] VITALS: BP 133/76
--- NOTE | 2019-10-18 15:43 | MORECARE ---
CASE MANAGEMENT DISCHARGE SUMMARY PATIENT: STEPHON BANG UNIT: [id number] ADM DATE: 10/10/19 AGE: 79 : 41 SEX: F ROOM/BED: D.4466 AUTHOR: ASHLEY,DOC PHYSICIAN: REFERRING PHYSICIAN: COLLETTE ARIAS MD DATE OF SERVICE: 10/18/19 Discharge Plan Patient Name: STEPHON BANG Facility: [facility]:[place] : 1940 Planned Disposition: Inpatient Rehab Anticipated Discharge Date: 10/19/19 Discharge Date: Expected LOS: 9 Initial Reviewer: [id number] Initial Review Date: 10/10/2019 Generated: 10/18/19 4:43 pm DCP- Discharge Planning Updated by [id number]: Priya Hernandez on 10/10/19 3:[address] Patient Name: STEPHON BANG Admission Status: Elective Accout number: [id number] Admission Date: 10-10-2019 : 1940 Admission Diagnosis: Attending: COLLETTE ARIAS Current LOS: 1 Planned Disposition: Primary Insurance: MEDICARE A & B Discharge Planning Comments: CM met with patient and Riley (son) to complete initial dc planning assessment. CM educated patient on the CM role and verbal consent given by patient to complete assessment. CM verified patient's address, phone number, and emergency contact phone numbers. Patient lives at home with her and son (Riley). Pt has home CPAP and nebulizer. States she had oxygen at one time. DAREN signed to resume [place] home patient. CM discussed the possibility of oxygen testing at home. CM discussed the possibility of home health and/or rehab. Patient refused at this time. CM stated we will follow patient status during hospitalization and assist as needed. At discharge patient plans to return home and feels this is a safe discharge. Transportation provider at discharge will be Riley [phone] . CM will continue to follow and will assist as needed with dc plans/needs. Registration Coordinator: Priya Hernandez MSN,RN,CM DCP- Discharge Planning Updated by [id number]: Priya Hernandez on 10/10/19 8:[address] JIMENEZ SERVED, EXPLAINED, AND SIGNED BY PATIENT. THE ORIGINAL WAS PROVIDED TO THE PATIENT AND COPY PLACED ON CHART. DCPIA - Discharge Planning Initial Assessment Updated by [id number]: Priya Hernandez on 10/10/19 4:36 pm * Is the patient Alert and Oriented? Yes * How many steps to enter\exit or inside your home? 0/0 * PCP ELPIDIO ACOSTA [phone] * Pharmacy [facility]/ [facility] * Preadmission Environment Home with Family * ADLs Partial Dependent * Partial ADLs (Assistance needed) Bathing Dressing * Equipment Bedside Commode CPAP Elevated Tol[place] Seat Nebulizer Rolling Walker Shower Chair * List name and contact numbers for known caregivers / representatives who currently or will assist patient after discharge: SON: RILEY [phone] * Verbal permission to speak to the caregivers and representatives has been obtained from the patient. Yes * Community resources currently utilized None * Additional services required to return to the preadmission environment? Yes * Can the patient safely return to the preadmission environment? No * Has this patient been hospitalized within the prior 30 days at any hospital? No Coverage Notice Reviewer: [id number] Nicole Hernandez Notice Issued Date-Time: 10/10/2019 7:55 Notice Type: Medicare Outpatient Observation Notice Notice Delivered To: Patient Relationship to Patient: Garment Fitter Name: Delivery Method: MAIL - Mail Christina Days: Prior Verbal Notification: Recipient Understood Notice: Yes Recipient Signature: Yes Med Rec Note Co-signed by Attending: Coverage Notice Comment: JIMENEZ SERVED, EXPLAINED, AND SIGNED BY PATIENT. THE ORIGINAL WAS PROVIDED TO THE PATIENT AND COPY PLACED ON CHART. Reviewer: [id number] Nicole Hernandez Notice Issued Date-Time: 10/10/2019 16:15 Notice Type: Patient Choice Letter Notice Delivered To: Patient Relationship to Patient: Garment Fitter Name: Delivery Method: HAND - Hand Delivered Christina Days: Prior Verbal Notification: Recipient Understood Notice: Yes Recipient Signature: Yes Med Rec Note Co-signed by Attending: Coverage Notice Comment: DAREN SIGNED TO RESUME [facility] PATIENT Reviewer: [id number] - Nico Vaughn Notice Issued Date-Time: 10/18/2019 15:30 Notice Type: IM Discharge Notice Notice Delivered To: Patient Relationship to Patient: Garment Fitter Name: Delivery Method: HAND - Hand Delivered Christina Days: Prior Verbal Notification: Recipient Understood Notice: Yes Recipient Signature: Yes Med Rec Note Co-signed by Attending: Coverage Notice Comment: Last DP export: 10/10/19 4:01 p Patient Name: STEPHON BANG Page [id number] at 1543 All edits/amendments must be made on the electronic document DICTATION DATE: 10/18/19 154 SUPERVISOR ROVING: SANDRA 10/18/191542 RPT#: [id number] DC DATE: STATUS: ADM IN [facility] [address] [place] [address] END OF REPORT
--- NOTE | 2019-10-18 15:47 | NUR ---
OT NOTE: PT ABLE TO PERFORM BED MOB WITH MIN ASSIST; STATIC SITTING ON EOB WITH GOOD BALANCE. SIT TO STAND ACT WITH MIN ASSIST. SIMPLE GROOMING AND UPPER BODY ADL TASK WITH SET UP; INCREASED ASSIST REQUIRED FOR LE ADL ACT. ERINN DURHAM, OTR/L [phone]
--- NOTE | 2019-10-18 15:58 | MORECARE ---
CASE MANAGEMENT DISCHARGE SUMMARY PATIENT: STEPHON BANG UNIT: [id number] ADM DATE: 10/10/19 AGE: 79 : 41 SEX: F ROOM/BED: D.[facility] AUTHOR: ASHLEY,DOC PHYSICIAN: REFERRING PHYSICIAN: COLLETTE ARIAS MD DATE OF SERVICE: 10/18/19 Discharge Plan Patient Name: STEPHON BANG Facility: [facility]:[place] : 1940 Planned Disposition: Inpatient Rehab Anticipated Discharge Date: 10/19/19 Discharge Date: Expected LOS: 9 Initial Reviewer: [email or web address] Initial Review Date: 10/10/2019 Generated: 10/18/19 4:58 pm Comments DCP- Discharge Planning Updated by [email or web address]: Nico Vaughn on 10/18/19 2:[address] Patient Name: STEPHON BANG Encounter No: [id number] : 1940 Primary Insurance: MEDICARE A & B Anticipated DC Date: 10-19-2019 Planned Disposition: Inpatient Rehab External Planned Provider: INPATIENT REHAB DCP follow-up note: CM RECEIVED INPATIENT REHAB PRESCREENING ORDER, MET WITH PT IN ROOM, DISCUSSED INPATIENT REHAB OPTIONS, LOCATIONS AND PROVIDERS. PT STATES SHE HAS DISCUSSED THIS WITH HER SON AND THEY HAVE DECIDED FOR REHAB AT , THEY DO NOT WANT TO GO TO [place] FOR REHAB. CHOICE SIGNED, IMPORTANT MESSAGE FROM MEDICARE PROVIDED AND EXPLAINED. CM NOTIFEID ELVIRA OF INPAITIENT REHAB. REHAB PREFER'S PT TO BE 4 LITERS OR LESS OXYGEN NEED, BUT WILL SCREEN PT. CM WAITING INPATIENT REHAB PRESCREENING RESULTS WELL ADMISSION DETERMINATION FROM INPATIENT REHAB. Nico Vaughn DCP- Discharge Planning Updated by [id number]: Priya Hernandez on 10/10/19 3:[address] Patient Name: STEPHON BANG Admission Status: Elective Accout number: [id number] Admission Date: 10-10-2019 : 1940 Admission Diagnosis: Attending: COLLETTE ARIAS Current LOS: 1 Planned Disposition: Primary Insurance: MEDICARE A & B Discharge Planning Comments: CM met with patient and Riley (son) to complete initial dc planning assessment. CM educated patient on the CM role and verbal consent given by patient to complete assessment. CM verified patient's address, phone number, and emergency contact phone numbers. Patient lives at home with her and son (Riley). Pt has home CPAP and nebulizer. States she had oxygen at one time. DAREN signed to resume [place] home patient. CM discussed the possibility of oxygen testing at home. CM discussed the possibility of home health and/or rehab. Patient refused at this time. CM stated we will follow patient status during hospitalization and assist as needed. At discharge patient plans to return home and feels this is a safe discharge. Transportation provider at discharge will be Riley [phone] . CM will continue to follow and will assist as needed with dc plans/needs. Drilling Contractor: Priya Hernandez MSN,RN,CM DCP- Discharge Planning Updated by [email or web address]: Priya Hernandez on 10/10/19 8:[address] JIMENEZ SERVED, EXPLAINED, AND SIGNED BY PATIENT. THE ORIGINAL WAS PROVIDED TO THE PATIENT AND COPY PLACED ON CHART. DCPIA - Discharge Planning Initial Assessment Updated by [id number]: Priya Hernandez on 10/10/19 4:36 pm * Is the patient Alert and Oriented? Yes * How many steps to enter\exit or inside your home? 0/0 * PCP ELPIDIO ACOSTA [phone] * Pharmacy [facility]/ [facility] * Preadmission Environment Home with Family * ADLs Partial Dependent * Partial ADLs (Assistance needed) Bathing Dressing * Equipment Bedside Commode CPAP Elevated [place] Seat Nebulizer Rolling Walker Shower Chair * List name and contact numbers for known caregivers / representatives who currently or will assist patient after discharge: SON: RILEY [phone] * Verbal permission to speak to the caregivers and representatives has been obtained from the patient. Yes * Community resources currently utilized None * Additional services required to return to the preadmission environment? Yes * Can the patient safely return to the preadmission environment? No * Has this patient been hospitalized within the prior 30 days at any hospital? No Coverage Notice Reviewer: [id number] - Priya Hernandez Notice Issued Date-Time: 10/10/2019 7:55 Notice Type: Medicare Outpatient Observation Notice Notice Delivered To: Patient Relationship to Patient: Dicer Operator Name: Delivery Method: MAIL - Mail Christina Days: Prior Verbal Notification: Recipient Understood Notice: Yes Recipient Signature: Yes Med Rec Note Co-signed by Attending: Coverage Notice Comment: JIMENEZ SERVED, EXPLAINED, AND SIGNED BY PATIENT. THE ORIGINAL WAS PROVIDED TO THE PATIENT AND COPY PLACED ON CHART. Reviewer: [id number] Nicole Hernandez Notice Issued Date-Time: 10/10/2019 16:15 Notice Type: Patient Choice Letter Notice Delivered To: Patient Relationship to Patient: Dicer Operator Name: Delivery Method: HAND - Hand Delivered Christina Days: Prior Verbal Notification: Recipient Understood Notice: Yes Recipient Signature: Yes Med Rec Note Co-signed by Attending: Coverage Notice Comment: DAREN SIGNED TO RESUME [facility] PATIENT Reviewer: [id number] Vaughn Notice Issued Date-Time: 10/18/2019 15:30 Notice Type: IM Discharge Notice Notice Delivered To: Patient Relationship to Patient: Dicer Operator Name: Delivery Method: HAND - Hand Delivered Christina Days: Prior Verbal Notification: Recipient Understood Notice: Yes Recipient Signature: Yes Med Rec Note Co-signed by Attending: Coverage Notice Comment: Reviewer: [id number] Vaughn Notice Issued Date-Time: 10/18/2019 15:30 Notice Type: Patient Choice Letter Notice Delivered To: Patient Relationship to Patient: Dicer Operator Name: Delivery Method: HAND - Hand Delivered Christina Days: Prior Verbal Notification: Recipient Understood Notice: Yes Recipient Signature: Yes Med Rec Note Co-signed by Attending: Coverage Notice Comment: INPATIENT REHAB Last DP export: 10/18/19 2:43 pm Patient Name: STEPHON BANG Page [id number] at 1558 All edits/amendments must be made on the electronic document DICTATION DATE: 10/18/19 1558 FOSTER CARE SOCIAL WORKER: SANDRA 10/18/19 1558 RPT#: [id number] DC DATE: STATUS: ADM IN [address] [place] [address] END OF REPORT
--- NOTE | 2019-10-18 16:29 | NUR ---
REHAB PRESCREENING Rehab referral received and chart reviewed. This patient is currently requiring BIPAP BID during the day and continuous at night with high flow nc at 6 lpm when off BIPAP. Rehab will follow this patient for increased respiratory stability and weaning in order to assess admission criteria. Thank you for this referral! Annika Piña, STRESS TEST TECHNICIAN Rehab PD
[2019-10-18 20:00] VITALS: BP 113/71
[2019-10-19] VITALS: BP 128/77
[2019-10-19 04:00] VITALS: BP 127/72
[2019-10-19 06:21] LABS: BASOPHILS 0.3 % (0-2); EOSINOPHILS 4.3 % (0-7); HEMATOCRIT 43.5 % (36.0-48.0); IMMATURE GRANULOCYTES 0.3 % (0-5); LYMPHOCYTES 8.7 % (15-50); MCH 29.5 pg (26.0-34.0); MCHC 29.9 g/dL (31.0-37.0); MCV 98.6 fL (80.0-100.0); MEAN PLATELET VOLUME 9.7 fL (7.4-10.4); MONOCYTES 8.3 % (2-11); NEUTROPHILS 78.1 % (40-80); PLATELET COUNT 304 10x3/uL (130-400); RBC 4.41 10x6/uL (4.00-5.40); WBC 7.8 10x3/uL (4.8-10.8)
[2019-10-19 06:48] LABS: ANION GAP 11.1 mmol/L (8-16); BILIRUBIN - TOTAL 0.46 mg/dL (0.2-1.3); CALCIUM 8.2 mg/dL (8.5-10.1); CARBON DIOXIDE 31.3 mmol/L (21.0-32.0); CREATININE - SERUM 1.3 mg/dL (0.6-1.3); POTASSIUM - SERUM 4.4 mmol/L (3.5-5.1); PROTEIN - SERUM 6.1 g/dL (6.4-8.2)
--- NOTE | 2019-10-19 08:30 | MORECARE ---
CASE MANAGEMENT DISCHARGE SUMMARY PATIENT: STEPHON BANG UNIT: [id number] ADM DATE: 10/10/19 AGE: 79 : 41 SEX: F [facility] AUTHOR: ASHLEY,DOC PHYSICIAN: REFERRING PHYSICIAN: COLLETTE ARIAS MD DATE OF SERVICE: 10/19/19 Discharge Plan Patient Name: STEPHON BANG Facility: [facility]:[place] : 1940 Planned Disposition: Inpatient Rehab Anticipated Discharge Date: 10/19/19 Discharge Date: Expected LOS: 9 Initial Reviewer: [id number] Initial Review Date: 10/10/2019 Generated: 10/19/19 9:30 am Comments DCP- Discharge Planning Updated by [email or web address]: Nico Vaughn on 10/18/19 2:[address] Patient Name: STEPHON BANG Encounter No: [id number] : 1940 Primary Insurance: MEDICARE A & B Anticipated DC Date: 10-19-2019 Planned Disposition: Inpatient Rehab External Planned Provider: [facility] INPATIENT REHAB DCP follow-up note: CM RECEIVED INPATIENT REHAB PRESCREENING ORDER, MET WITH PT IN ROOM, DISCUSSED INPATIENT REHAB OPTIONS, LOCATIONS AND PROVIDERS. PT STATES SHE HAS DISCUSSED THIS WITH HER SON AND THEY HAVE DECIDED FOR REHAB AT [facility], THEY DO NOT WANT TO GO TO [place] FOR REHAB. CHOICE SIGNED, IMPORTANT MESSAGE FROM MEDICARE PROVIDED AND EXPLAINED. CM NOTIFEID ELVIRA OF INPAITIENT REHAB. REHAB PREFER'S PT TO BE 4 LITERS OR LESS OXYGEN NEED, BUT WILL SCREEN PT. CM WAITING INPATIENT REHAB PRESCREENING RESULTS WELL ADMISSION DETERMINATION FROM INPATIENT REHAB. Nico Vaughn DCP- Discharge Planning Updated by [id number]: Priya Hernandez on 10/10/19 3:[address] Patient Name: STEPHON BANG Admission Status: Elective Accout number: [id number] Admission Date: 10-10-2019 : 1940 Admission Diagnosis: Attending: COLLETTE ARIAS Current LOS: 1 Planned Disposition: Primary Insurance: MEDICARE A & B Discharge Planning Comments: CM met with patient and Riley (son) to complete initial dc planning assessment. CM educated patient on the CM role and verbal consent given by patient to complete assessment. CM verified patient's address, phone number, and emergency contact phone numbers. Patient lives at home with her and son (Riley). Pt has home CPAP and nebulizer. States she had oxygen at one time. DAREN signed to resume [place] home patient. CM discussed the possibility of oxygen testing at home. CM discussed the possibility of home health and/or rehab. Patient refused at this time. CM stated we will follow patient status during hospitalization and assist as needed. At discharge patient plans to return home and feels this is a safe discharge. Transportation provider at discharge will be Riley [phone] . CM will continue to follow and will assist as needed with dc plans/needs. Fisher Gill Net: Priya Hernandez MSN,RN,CM DCP- Discharge Planning Updated by [id number]: Priya Hernandez on 10/10/19 8:[address] JIMENEZ SERVED, EXPLAINED, AND SIGNED BY PATIENT. THE ORIGINAL WAS PROVIDED TO THE PATIENT AND COPY PLACED ON CHART. DCPIA - Discharge Planning Initial Assessment Updated by [id number]: Priya Hernandez on 10/10/19 4:36 pm * Is the patient Alert and Oriented? Yes * How many steps to enter\exit or inside your home? 0/0 * PCP ELPIDIO ACOSTA [phone] * Pharmacy [facility]/ [facility] * Preadmission Environment Home with Family * ADLs Partial Dependent * Partial ADLs (Assistance needed) Bathing Dressing * Equipment Bedside Commode CPAP Elevated Tol[place] Seat Nebulizer Rolling Walker Shower Chair * List name and contact numbers for known caregivers / representatives who currently or will assist patient after discharge: SON: RILEY [phone] * Verbal permission to speak to the caregivers and representatives has been obtained from the patient. Yes * Community resources currently utilized None * Additional services required to return to the preadmission environment? Yes * Can the patient safely return to the preadmission environment? No * Has this patient been hospitalized within the prior 30 days at any hospital? No Coverage Notice Reviewer: [id number] - Priya Hernandez Notice Issued Date-Time: 10/10/2019 7:55 Notice Type: Medicare Outpatient Observation Notice Notice Delivered To: Patient Relationship to Patient: Cattle Farmer Name: Delivery Method: MAIL - Mail Christina Days: Prior Verbal Notification: Recipient Understood Notice: Yes Recipient Signature: Yes Med Rec Note Co-signed by Attending: Coverage Notice Comment: JIMENEZ SERVED, EXPLAINED, AND SIGNED BY PATIENT. THE ORIGINAL WAS PROVIDED TO THE PATIENT AND COPY PLACED ON CHART. Reviewer: [id number] Nicole Hernandez Notice Issued Date-Time: 10/10/2019 16:15 Notice Type: Patient Choice Letter Notice Delivered To: Patient Relationship to Patient: Cattle Farmer Name: Delivery Method: HAND - Hand Delivered Christina Days: Prior Verbal Notification: Recipient Understood Notice: Yes Recipient Signature: Yes Med Rec Note Co-signed by Attending: Coverage Notice Comment: DAREN SIGNED TO RESUME [facility] PATIENT Reviewer: [id number] Vaughn Notice Issued Date-Time: 10/18/2019 15:30 Notice Type: IM Discharge Notice Notice Delivered To: Patient Relationship to Patient: Cattle Farmer Name: Delivery Method: HAND - Hand Delivered Christina Days: Prior Verbal Notification: Recipient Understood Notice: Yes Recipient Signature: Yes Med Rec Note Co-signed by Attending: Coverage Notice Comment: Reviewer: [id number] Vaughn Notice Issued Date-Time: 10/18/2019 15:30 Notice Type: Patient Choice Letter Notice Delivered To: Patient Relationship to Patient: Cattle Farmer Name: Delivery Method: HAND - Hand Delivered Christina Days: Prior Verbal Notification: Recipient Understood Notice: Yes Recipient Signature: Yes Med Rec Note Co-signed by Attending: Coverage Notice Comment: [facility] INPATIENT REHAB Last DP export: 10/18/19 2:58 pm Patient Name: STEPHON BANG Page [id number] at 0830 All edits/amendments must be made on the electronic document DICTATION DATE: 10/19/1930 DRAW PRESS OPERATOR: SANDRA 10/19/19 0830 RPT#: [id number] DC DATE: STATUS: ADM IN [facility] [address] [place] [address] END OF REPORT
[2019-10-19 10:54] VITALS: BP 118/63
--- NOTE | 2019-10-19 10:55 | NUR ---
STARTED ON MIRALAX FOR C/O CONSTIPATION. UP TO CHAIR WITH PT/OT ASSIST. WILL CONT. PLAN OF CARE.
--- NOTE | 2019-10-19 11:55 | NUR ---
OT NOTE: PT REPORTING ABD PAIN SECONDARY TO CONSTIPATION. INFORMED NURSING WHO PROVIDED METIMUCAL. BED MOB WITH SPV; STATIC SITTING ON EOB WITH SPV; EXS WHILE ON EOB; ABLE TO WASH UPPER BODY IWTH SET UP; MOD ASSIST FOR WASHING PERINEAL AREA. AMB APPROX 14 FT IN ROOM; TRANSFERS WITH MIN ASSIST; TOILETING WITH MIN ASSIST. ERINN DURHAM, OTR/L [phone]
[2019-10-19 12:00] VITALS: BP 133/70
--- NOTE | 2019-10-19 13:27 | NUR ---
Nutrition Follow-up: C/o gas pains and constipation this AM. Noted simethicone ordered. Diet: Diabetic PO intake: 50-100% No new wt; last wt: 255# (10/09) Last BM: 10/17 per pt Labs noted: Glu 102, Ca 8.2, Alb 3.0 Meds noted: Lasix, Glucotrol, Colace, Pepcid, Simethicone -Encourage PO intake and honor food preferences within diet restrictions. -Yogurt and Sprite Zero provided with lunch today per pt request. -Monitor wt. -RD following.
[2019-10-19 16:00] VITALS: BP 115/51
[2019-10-19 20:00] VITALS: BP 118/62
[2019-10-20] VITALS: BP 117/71
[2019-10-20 04:00] VITALS: BP 105/62
[2019-10-20 05:31] LABS: BASOPHILS 0.3 % (0-2); EOSINOPHILS 4.8 % (0-7); HEMATOCRIT 42.1 % (36.0-48.0); HEMOGLOBIN 12.8 g/dL (12-16); IMMATURE GRANULOCYTES 0.3 % (0-5); LYMPHOCYTES 10.3 % (15-50); MCH 29.9 pg (26.0-34.0); MCHC 30.4 g/dL (31.0-37.0); MCV 98.4 fL (80.0-100.0); MONOCYTES 12.4 % (2-11); NEUTROPHILS 71.9 % (40-80); PLATELET COUNT 280 10x3/uL (130-400); RBC 4.28 10x6/uL (4.00-5.40); RDW 14.4 % (11.5-14.5); WBC 7.5 10x3/uL (4.8-10.8)
[2019-10-20 05:50] LABS: ALBUMIN 2.7 g/dL (3.4-5.0); ANION GAP 12.2 mmol/L (8-16); BILIRUBIN - TOTAL 0.46 mg/dL (0.2-1.3); CALCIUM 8.3 mg/dL (8.5-10.1); CARBON DIOXIDE 28.4 mmol/L (21.0-32.0); CREATININE - SERUM 1.6 mg/dL (0.6-1.3); POTASSIUM - SERUM 4.6 mmol/L (3.5-5.1); PROTEIN - SERUM 6.6 g/dL (6.4-8.2)
--- NOTE | 2019-10-20 07:15 | NUR ---
RECEIVED PT IN BED EYES CLOSED RESP UNLABORED SKIN W/D NAD NOTED WILL CONTINUE TO MONITOR
[2019-10-20 09:00] VITALS: BP 135/69
--- NOTE | 2019-10-20 09:45 | NUR ---
AMBULATING IN HALLWAY WITH THERAPY TOLERATING WELL
[2019-10-20 12:00] VITALS: BP 125/66
--- NOTE | 2019-10-20 12:35 | NUR ---
SITTING IN CHAIR DENIES ANY NEEDS OR DISCOMFORT
--- NOTE | 2019-10-20 13:30 | NUR ---
OT NOTE: PT COMPLETED ADL MOB WITH CGA. PT COMPLETED SUPINE TO SIT IWTH CGA. PT COMPLETED BED MOB WITH SBA. PT COMPLETED FACE AND HAND HYGIENE TASKS WITH SET UP AT EOB. [id number] THANK YOU, CIELO HEWITT
--- NOTE | 2019-10-20 14:15 | NUR ---
RESTING QUIETLY EYES CLOSED RESP UNLABORED SKIN W/D NAD NOTED
--- NOTE | 2019-10-20 20:26 | NUR ---
REPORT RECIEVED AND INITIAL ROUNDS COMPLETED. PT RESTING IN BED. HAS ALREADY BEEN UP TO BEDSIDE COMMODE X 1. O2 @ 4L/HFNC. RESPS EVEN/NONLABORED. SALINE LOCK TO RIGHT HAND. CPOC.
[2019-10-20 20:30] VITALS: BP 135/55
--- NOTE | 2019-10-20 21:40 | NUR ---
BEDTIME MEDS GIVEN. REFUSED MIRALAX AND METAMUCIL. STATES HAS HAD 2 LARGE BMS TODAY. REFUSED ZENIA, SCAB ON LEFT HAND IS HEALED.
[2019-10-21 01:00] VITALS: BP 134/72
--- NOTE | 2019-10-21 01:09 | NUR ---
ASSISTED UP TO BSC TO HAVE SMALL BM. REPLACED PUREWICK WHICH HAD DISPLACED AND THE BED WAS WET. LINEN CHANGE. BACK TO BED AND ON BIPAP.
[2019-10-21 04:30] VITALS: BP 138/64
[2019-10-21 07:00] LABS: BASOPHILS 0.3 % (0-2); EOSINOPHILS 5.2 % (0-7); HEMATOCRIT 42.1 % (36.0-48.0); HEMOGLOBIN 12.7 g/dL (12-16); IMMATURE GRANULOCYTES 0.4 % (0-5); LYMPHOCYTES 10.2 % (15-50); MCH 29.7 pg (26.0-34.0); MCHC 30.2 g/dL (31.0-37.0); MCV 98.6 fL (80.0-100.0); MEAN PLATELET VOLUME 9.4 fL (7.4-10.4); MONOCYTES 11.1 % (2-11); NEUTROPHILS 72.8 % (40-80); PLATELET COUNT 299 10x3/uL (130-400); RBC 4.27 10x6/uL (4.00-5.40); RDW 14.5 % (11.5-14.5); WBC 6.8 10x3/uL (4.8-10.8)
--- NOTE | 2019-10-21 07:15 | NUR ---
RECEIVED PT IN BED EYES CLOSED RESP UNLABORED O2 ON PER HIGH FLOW NASAL CANNULA @ 4L/M SKIN W/D COLOR WNL NAD NOTED
[2019-10-21 07:18] LABS: ALBUMIN 2.9 g/dL (3.4-5.0); BILIRUBIN - TOTAL 0.45 mg/dL (0.2-1.3); CALCIUM 8.3 mg/dL (8.5-10.1); CREATININE - SERUM 1.6 mg/dL (0.6-1.3); PROTEIN - SERUM 6.8 g/dL (6.4-8.2)
[2019-10-21 08:00] VITALS: BP 113/68
[2019-10-21 12:00] VITALS: BP 107/64
--- NOTE | 2019-10-21 14:04 | NUR ---
PATIENT TAKEN OFF OF OXYGEN AND WITHING ONE MINUTE SPO2 DROPPED TO 85%. RESTING SPO2 IS 93% ON 4 LPM NASAL CANNULA. PT UNABLE TO AMBULATE AT THIS TIME
--- NOTE | 2019-10-21 15:15 | NUR ---
OT NOTE: PT IN BED. REPORTED THAT SHE FELT BETTER TODAY AND THAT SHE WAS GOING HOME. REPORTED THAT SHE THOUGHT STAFF WAS UPSET THAT SHE WAS GOING HOME VS REHAB. DISCUSSED PROS AND CONS. RECOMMEND REHAB BUT PT THINKS THAT SHE WILL DO WELL AT HOME VS REHAB. TOLD PT THAT I WOULD PROVIDE HER WITH HOME EX PROGRAM BUT HOPEFULLY SHE WILL AT LEAST GET HH SERVICES. PT STATED THAT SHE HAD BEEN UP IN CHAIR FOR A WHILE TODAY AND THAT SHE HAD AMB FURTHER THAN ON PREVIOUS DAYS. ERINN DURHAM, OTR/L [phone]
[2019-10-21 16:00] VITALS: BP 110/71
--- NOTE | 2019-10-21 16:03 | MORECARE ---
CASE MANAGEMENT DISCHARGE SUMMARY PATIENT: STEPHON BANG UNIT: [id number] ADM DATE: 10/10/19 AGE: 79 : 41 SEX: F ROOM/BED: D.[facility] AUTHOR: ASHLEY,DOC PHYSICIAN: REFERRING PHYSICIAN: COLLETTE ARIAS MD DATE OF SERVICE: 10/21/19 Discharge Plan Patient Name: STEPHON BANG Facility: [facility]:[place] : 1940 Planned Disposition: Inpatient Rehab Anticipated Discharge Date: 10/19/19 Discharge Date: Expected LOS: 9 Initial Reviewer: [id number] Initial Review Date: 10/10/2019 Generated: 10/21/19 5:03 pm DCP- Discharge Planning Updated by [email or web address]: Nico Vaughn on 10/18/19 2:[address] Patient Name: STEPHON BANG Encounter No: [id number] : 1940 Primary Insurance: MEDICARE A & B Anticipated DC Date: 10-19-2019 Planned Disposition: Inpatient Rehab External Planned Provider: [facility] INPATIENT REH[facility] DCP follow-up note: CM RECEIVED INPATIENT REHAB PRESCREENING ORDER, MET WITH PT IN ROOM, DISCUSSED INPATIENT REHAB OPTIONS, LOCATIONS AND PROVIDERS. PT STATES SHE HAS DISCUSSED THIS WITH HER SON AND THEY HAVE DECIDED FOR REHAB AT [facility], THEY DO NOT WANT TO GO TO [place] FOR REHAB. CHOICE SIGNED, IMPORTANT MESSAGE FROM MEDICARE PROVIDED AND EXPLAINED. CM NOTIFEID ELVIRA OF INPAITIENT REHAB. REHAB PREFER'S PT TO BE 4 LITERS OR LESS OXYGEN NEED, BUT WILL SCREEN PT. CM WAITING INPATIENT REHAB PRESCREENING RESULTS WELL ADMISSION DETERMINATION FROM INPATIENT REHAB. Nico Vaughn DCP- Discharge Planning Updated by [id number]: Priya Hernandez on 10/10/19 3:[address] Patient Name: STEPHON BANG Admission Status: Elective Accout number: [id number] Admission Date: 10-10-2019 : 1940 Admission Diagnosis: Attending: COLLETTE ARIAS Current LOS: 1 Planned Disposition: Primary Insurance: MEDICARE A & B Discharge Planning Comments: CM met with patient and Riley (son) to complete initial dc planning assessment. CM educated patient on the CM role and verbal consent given by patient to complete assessment. CM verified patient's address, phone number, and emergency contact phone numbers. Patient lives at home with her and son (Riley). Pt has home CPAP and nebulizer. States she had oxygen at one time. DAREN signed to resume [place] home patient. CM discussed the possibility of oxygen testing at home. CM discussed the possibility of home health and/or rehab. Patient refused at this time. CM stated we will follow patient status during hospitalization and assist as needed. At discharge patient plans to return home and feels this is a safe discharge. Transportation provider at discharge will be Riley [phone] . CM will continue to follow and will assist as needed with dc plans/needs. Furniture Finisher Apprentice: Priya Hernandez MSN,RN,CM DCP- Discharge Planning Updated by [id number]: Priya Hernandez on 10/10/19 8:[address] JIMENEZ SERVED, EXPLAINED, AND SIGNED BY PATIENT. THE ORIGINAL WAS PROVIDED TO THE PATIENT AND COPY PLACED ON CHART. DCPIA - Discharge Planning Initial Assessment Updated by [id number]: Priya Hernandez on 10/10/19 4:36 pm * Is the patient Alert and Oriented? Yes * How many steps to enter\exit or inside your home? 0/0 * PCP ELPIDIO ACOSTA [phone] * Pharmacy [facility]/ [facility] * Preadmission Environment Home with Family * ADLs Partial Dependent * Partial ADLs (Assistance needed) Bathing Dressing * Equipment Bedside Commode CPAP Elevated [place] Seat Nebulizer Rolling Walker Shower Chair * List name and contact numbers for known caregivers / representatives who currently or will assist patient after discharge: SON: RILEY [phone] * Verbal permission to speak to the caregivers and representatives has been obtained from the patient. Yes * Community resources currently utilized None * Additional services required to return to the preadmission environment? Yes * Can the patient safely return to the preadmission environment? No * Has this patient been hospitalized within the prior 30 days at any hospital? No External Providers External Provider: [facility] [facility] Next Contact Date: Service Request Date: Service Type: Resolution: Reviewer: Comments: Coverage Notice Reviewer: [id number] - Priya Hernandez Notice Issued Date-Time: 10/10/2019 7:55 Notice Type: Medicare Outpatient Observation Notice Notice Delivered To: Patient Relationship to Patient: Sap Data Analyst Name: Delivery Method: MAIL - Mail Christina Days: Prior Verbal Notification: Recipient Understood Notice: Yes Recipient Signature: Yes Med Rec Note Co-signed by Attending: Coverage Notice Comment: JIMENEZ SERVED, EXPLAINED, AND SIGNED BY PATIENT. THE ORIGINAL WAS PROVIDED TO THE PATIENT AND COPY PLACED ON CHART. Reviewer: [id number] Nicole Hernandez Notice Issued Date-Time: 10/10/2019 16:15 Notice Type: Patient Choice Letter Notice Delivered To: Patient Relationship to Patient: Sap Data Analyst Name: Delivery Method: HAND - Hand Delivered Christina Days: Prior Verbal Notification: Recipient Understood Notice: Yes Recipient Signature: Yes Med Rec Note Co-signed by Attending: Coverage Notice Comment: DAREN SIGNED TO RESUME [place] [facility] PATIENT Reviewer: [id number] Nicole Vaughn Notice Issued Date-Time: 10/18/2019 15:30 Notice Type: IM Discharge Notice Notice Delivered To: Patient Relationship to Patient: Sap Data Analyst Name: Delivery Method: HAND - Hand Delivered Christina Days: Prior Verbal Notification: Recipient Understood Notice: Yes Recipient Signature: Yes Med Rec Note Co-signed by Attending: Coverage Notice Comment: Reviewer: [email or web address] Nicole Vaughn Notice Issued Date-Time: 10/18/2019 15:30 Notice Type: Patient Choice Letter Notice Delivered To: Patient Relationship to Patient: Sap Data Analyst Name: Delivery Method: HAND - Hand Delivered Christina Days: Prior Verbal Notification: Recipient Understood Notice: Yes Recipient Signature: Yes Med Rec Note Co-signed by Attending: Coverage Notice Comment: [facility] Last DP export: 10/19/19 7:30 am Patient Name: STEPHON BANG Page [id number] at 1603 All edits/amendments must be made on the electronic document DICTATION DATE: 10/21/19 1603 DENTAL LABORATORY SUPERVISOR: SANDRA 10/21/19 160 RPT#: [id number] DC DATE: STATUS: ADM IN [facility] [address] [place] [address] END OF REPORT
--- NOTE | 2019-10-21 16:10 | MORECARE ---
CASE MANAGEMENT DISCHARGE SUMMARY PATIENT: STEPHON BANG UNIT: [id number] ADM DATE: 10/10/19 AGE: 79 : 41 SEX: F ROOM/BED: D.[facility] [place][note 2]0 AUTHOR: ASHLEY,DOC PHYSICIAN: REFERRING PHYSICIAN: COLLETTE ARIAS MD DATE OF SERVICE: 10/21/19 Discharge Plan Patient Name: STEPHON BANG Facility: [facility]:[place] : 1940 Planned Disposition: Inpatient Rehab Anticipated Discharge Date: 10/19/19 Discharge Date: Expected LOS: 9 Initial Reviewer: [email or web address] Initial Review Date: 10/10/2019 Generated: 10/21/19 5:10 pm DCP- Discharge Planning Updated by [email or web address]: Nico Vaughn on 10/18/19 2:[address] Patient Name: STEPHON BANG Encounter No: [id number] : 1940 Primary Insurance: MEDICARE A & B Anticipated DC Date: 10-19-2019 Planned Disposition: Inpatient Rehab External Planned Provider: [facility] INPATIENT REH[facility] DCP follow-up note: CM RECEIVED INPATIENT REHAB PRESCREENING ORDER, MET WITH PT IN ROOM, DISCUSSED INPATIENT REHAB OPTIONS, LOCATIONS AND PROVIDERS. PT STATES SHE HAS DISCUSSED THIS WITH HER SON AND THEY HAVE DECIDED FOR REHAB AT [facility], THEY DO NOT WANT TO GO TO [place] FOR REHAB. CHOICE SIGNED, IMPORTANT MESSAGE FROM MEDICARE PROVIDED AND EXPLAINED. CM NOTIFEID ELVIRA OF INPAITIENT REHAB. REHAB PREFER'S PT TO BE 4 LITERS OR LESS OXYGEN NEED, BUT WILL SCREEN PT. CM WAITING INPATIENT REHAB PRESCREENING RESULTS WELL ADMISSION DETERMINATION FROM INPATIENT REHAB. Nico Vaughn DCP- Discharge Planning Updated by [id number]: Priya Hernandez on 10/10/19 3:[address] Patient Name: STEPHON BANG Admission Status: Elective Accout number: [id number] Admission Date: 10-10-2019 : 1940 Admission Diagnosis: Attending: COLLETTE ARIAS Current LOS: 1 Planned Disposition: Primary Insurance: MEDICARE A & B Discharge Planning Comments: CM met with patient and Riley (son) to complete initial dc planning assessment. CM educated patient on the CM role and verbal consent given by patient to complete assessment. CM verified patient's address, phone number, and emergency contact phone numbers. Patient lives at home with her and son (Riley). Pt has home CPAP and nebulizer. States she had oxygen at one time. DAREN signed to resume [place] home patient. CM discussed the possibility of oxygen testing at home. CM discussed the possibility of home health and/or rehab. Patient refused at this time. CM stated we will follow patient status during hospitalization and assist as needed. At discharge patient plans to return home and feels this is a safe discharge. Transportation provider at discharge will be Riley [phone] . CM will continue to follow and will assist as needed with dc plans/needs. Dip Tube Assembler Machine: Priya Hernandez MSN,RN,CM DCP- Discharge Planning Updated by [id number]: Priya Hernandez on 10/10/19 8:[address] JIMENEZ SERVED, EXPLAINED, AND SIGNED BY PATIENT. THE ORIGINAL WAS PROVIDED TO THE PATIENT AND COPY PLACED ON CHART. DCPIA - Discharge Planning Initial Assessment Updated by [id number]: Priya Hernandez on 10/10/19 4:36 pm * Is the patient Alert and Oriented? Yes * How many steps to enter\exit or inside your home? 0/0 * PCP ELPIDIO ACOSTA [phone] * Pharmacy [facility]/ [facility] * Preadmission Environment Home with Family * ADLs Partial Dependent * Partial ADLs (Assistance needed) Bathing Dressing * Equipment Bedside Commode CPAP Elevated [place] Seat Nebulizer Rolling Walker Shower Chair * List name and contact numbers for known caregivers / representatives who currently or will assist patient after discharge: SON: RILEY [phone] * Verbal permission to speak to the caregivers and representatives has been obtained from the patient. Yes * Community resources currently utilized None * Additional services required to return to the preadmission environment? Yes * Can the patient safely return to the preadmission environment? No * Has this patient been hospitalized within the prior 30 days at any hospital? No External Providers External Provider: [facility] Next Contact Date: Service Request Date: Service Type: Resolution: Reviewer: Comments: Coverage Notice Reviewer: [id number] - Nico Vaughn Notice Issued Date-Time: 10/18/2019 15:30 Notice Type: Patient Choice Letter Notice Delivered To: Patient Relationship to Patient: Backside Grinder Name: Delivery Method: HAND - Hand Delivered Christina Days: Prior Verbal Notification: Recipient Understood Notice: Yes Recipient Signature: Yes Med Rec Note Co-signed by Attending: Coverage Notice Comment: [facility] INPAT[facility] REH[facility] Reviewer: [id number] Nicole Hernandez Notice Issued Date-Time: 10/10/2019 16:15 Notice Type: Patient Choice Letter Notice Delivered To: Patient Relationship to Patient: Backside Grinder Name: Delivery Method: HAND - Hand Delivered Christina Days: Prior Verbal Notification: Recipient Understood Notice: Yes Recipient Signature: Yes Med Rec Note Co-signed by Attending: Coverage Notice Comment: DAREN SIGNED TO RESUME [place] [facility] PATIENT Reviewer: [id number] Nicole Hernandez Notice Issued Date-Time: 10/10/2019 7:55 Notice Type: Medicare Outpatient Observation Notice Notice Delivered To: Patient Relationship to Patient: Backside Grinder Name: Delivery Method: MAIL - Mail Christina Days: Prior Verbal Notification: Recipient Understood Notice: Yes Recipient Signature: Yes Med Rec Note Co-signed by Attending: Coverage Notice Comment: JIMENEZ SERVED, EXPLAINED, AND SIGNED BY PATIENT. THE ORIGINAL WAS PROVIDED TO THE PATIENT AND COPY PLACED ON CHART. Reviewer: [id number] Nicole Vaughn Notice Issued Date-Time: 10/18/2019 15:30 Notice Type: IM Discharge Notice Notice Delivered To: Patient Relationship to Patient: Backside Grinder Name: Delivery Method: HAND - Hand Delivered Christina Days: Prior Verbal Notification: Recipient Understood Notice: Yes Recipient Signature: Yes Med Rec Note Co-signed by Attending: Coverage Notice Comment: Last DP export: 10/21/19 3:03 pm Patient Name: STEPHON BANG Page [id number] at 1610 All edits/amendments must be made on the electronic document DICTATION DATE: 10/21/19 1610 PROFESSIONAL MODEL: SANDRA 10/21/19 1610 RPT#: [id number] DC DATE: STATUS: ADM IN [facility] [address] [place] [address] END OF REPORT
--- NOTE | 2019-10-21 19:30 | NUR ---
PT ASSISTED UP TO USE BSC. HAD SMALL BM, CARE PROVIDED. ASSISTED TO DRESS IN STREET CLOTHES AND SHOES. DISCHARGE PAPERWORK REVIEWED/SIGNED AND IV TO RIGHT HAND DC'D.
--- NOTE | 2019-10-21 20:00 | NUR ---
DISCHARGED TO CARE OF SON AND HOME BY PRIVATE VEHICLE. ALL BELONGINGS ACCOUNTED FOR AND WITH PATIENT.
--- NOTE | 2019-10-22 10:29 | MORECARE ---
CASE MANAGEMENT DISCHARGE SUMMARY PATIENT: STEPHON BANG UNIT: [id number] ADM DATE: 10/10/19 AGE: 79 : 41 SEX: F ROOM/BED: D.9906 AUTHOR: ASHLEY,DOC PHYSICIAN: REFERRING PHYSICIAN: COLLETTE ARIAS MD DATE OF SERVICE: 10/22/19 Discharge Plan Patient Name: STEPHON BANG Facility: [facility]:[place] : 1940 Planned Disposition: Inpatient Rehab Anticipated Discharge Date: 10/19/19 Discharge Date: 10/21/2019 Expected LOS: 9 Initial Reviewer: [email or web address] Initial Review Date: 10/10/2019 Generated: 10/22/19 11:28 am Comments DCP- Discharge Planning Updated by [id number]: Lauren Vidal on 10/22/19 9:[address] late entry 10/21/19 CM notified of discharge. CM contacted [facility] Patient of [facility] needs records faxed. [facility] [place] Patient was in [place] when CM spoke with him and he will contact patient's son Riley and give him portable tank to bring to pick patient up. He will also set up concentrator in the home. DAREN for [facility] notified and referral sent. They will contact patient of admit appointment. CM will continue to follow and assist as needed with discharge planning / needs IMM signed 10/21/19 @ 1500 DCP- Discharge Planning Updated by [id number]: Nico Vaughn on 10/18/19 2:[address] Patient Name: STEPHON BANG Encounter No: [id number] : 1940 Primary Insurance: MEDICARE A & B Anticipated DC Date: 10-19-2019 Planned Disposition: Inpatient Rehab External Planned Provider: [facility] INPATIENT REH[facility] DCP follow-up note: CM RECEIVED INPATIENT REHAB PRESCREENING ORDER, MET WITH PT IN ROOM, DISCUSSED INPATIENT REHAB OPTIONS, LOCATIONS AND PROVIDERS. PT STATES SHE HAS DISCUSSED THIS WITH HER SON AND THEY HAVE DECIDED FOR REHAB AT [facility], THEY DO NOT WANT TO GO TO [place] FOR REHAB. CHOICE SIGNED, IMPORTANT MESSAGE FROM MEDICARE PROVIDED AND EXPLAINED. CM NOTIFEID ELVIRA OF INPAITIENT REHAB. REHAB PREFER'S PT TO BE 4 LITERS OR LESS OXYGEN NEED, BUT WILL SCREEN PT. CM WAITING INPATIENT REHAB PRESCREENING RESULTS WELL ADMISSION DETERMINATION FROM INPATIENT REHAB. Nico [place] DCP- Discharge Planning Updated by [id number]: Priya Hernandez on 10/10/19 3:[address] Patient Name: STEPHON BANG Admission Status: Elective Accout number: [id number] Admission Date: 10-10-2019 : 1940 Admission Diagnosis: Attending: COLLETTE ARIAS Current LOS: 1 Planned Disposition: Primary Insurance: MEDICARE A & B Discharge Planning Comments: CM met with patient and Riley (son) to complete initial dc planning assessment. CM educated patient on the CM role and verbal consent given by patient to complete assessment. CM verified patient's address, phone number, and emergency contact phone numbers. Patient lives at home with her and son (Riley). Pt has home CPAP and nebulizer. States she had oxygen at one time. DAREN signed to resume [place] home patient. CM discussed the possibility of oxygen testing at home. CM discussed the possibility of home health and/or rehab. Patient refused at this time. CM stated we will follow patient status during hospitalization and assist as needed. At discharge patient plans to return home and feels this is a safe discharge. Transportation provider at discharge will be Riley [phone] . CM will continue to follow and will assist as needed with dc plans/needs. [place]: Priya Hernandez MSN,RN,CM DCP- Discharge Planning Updated by [id number]: Priya Hernandez on 10/10/19 8:[address] JIMENEZ SERVED, EXPLAINED, AND SIGNED BY PATIENT. THE ORIGINAL WAS PROVIDED TO THE PATIENT AND COPY PLACED ON CHART. DCPIA - Discharge Planning Initial Assessment Updated by [id number]: Priya Hernandez on 10/10/19 4:36 pm * Is the patient Alert and Oriented? Yes * How many steps to enter\exit or inside your home? 0/0 * PCP ELPIDIO ACOSTA [phone] * Pharm[facility] * Preadmission Environment Home with Family * ADLs Partial Dependent * Partial ADLs (Assistance needed) Bathing Dressing * Equipment Bedside Commode CPAP Elevated [place] Seat Nebulizer Rolling Walker Shower Chair * List name and contact numbers for known caregivers / representatives who currently or will assist patient after discharge: SON: RILEY [phone] * Verbal permission to speak to the caregivers and representatives has been obtained from the patient. Yes * Community resources currently utilized None * Additional services required to return to the preadmission environment? Yes * Can the patient safely return to the preadmission environment? No * Has this patient been hospitalized within the prior 30 days at any hospital? No Coverage Notice Reviewer: [id number] Nicole Vidal Notice Issued Date-Time: 10/21/2019 15:00 Notice Type: IM Discharge Notice Notice Delivered To: Patient Relationship to Patient: Self Blue Line Operator Name: Delivery Method: HAND - Hand Delivered Christina Days: Prior Verbal Notification: Recipient Understood Notice: Yes Recipient Signature: Yes Med Rec Note Co-signed by Attending: Coverage Notice Comment: Reviewer: [id number] Vaughn Notice Issued Date-Time: 10/18/2019 15:30 Notice Type: Patient Choice Letter Notice Delivered To: Patient Relationship to Patient: Blue Line Operator Name: Delivery Method: HAND - Hand Delivered Christina Days: Prior Verbal Notification: Recipient Understood Notice: Yes Recipient Signature: Yes Med Rec Note Co-signed by Attending: Coverage Notice Comment: [facility] INPATIENT REHAB Reviewer: [id number] Nicole Hernandez Notice Issued Date-Time: 10/10/2019 16:15 Notice Type: Patient Choice Letter Notice Delivered To: Patient Relationship to Patient: Blue Line Operator Name: Delivery Method: HAND - Hand Delivered Christina Days: Prior Verbal Notification: Recipient Understood Notice: Yes Recipient Signature: Yes Med Rec Note Co-signed by Attending: Coverage Notice Comment: DAREN SIGNED TO RESUME [facility] PATIENT Reviewer: [email or web address] Nicole Hernandez Notice Issued Date-Time: 10/10/2019 7:55 Notice Type: Medicare Outpatient Observation Notice Notice Delivered To: Patient Relationship to Patient: Blue Line Operator Name: Delivery Method: MAIL - Mail Christina Days: Prior Verbal Notification: Recipient Understood Notice: Yes Recipient Signature: Yes Med Rec Note Co-signed by Attending: Coverage Notice Comment: BARBARA SERVED, EXPLAINED, AND SIGNED BY PATIENT. THE ORIGINAL WAS PROVIDED TO THE PATIENT AND COPY PLACED ON CHART. Reviewer: [id number] Nicole Vaughn Notice Issued Date-Time: 10/18/2019 15:30 Notice Type: IM Discharge Notice Notice Delivered To: Patient Relationship to Patient: Blue Line Operator Name: Delivery Method: HAND - Hand Delivered Christina Days: Prior Verbal Notification: Recipient Understood Notice: Yes Recipient Signature: Yes Med Rec Note Co-signed by Attending: Coverage Notice Comment: Last DP export: 10/21/19 3:10 pm Patient Name: STEPHON BANG Page [id number] at 1029 All edits/amendments must be made on the electronic document DICTATION DATE: 10/22/19 1028 PRODUCTION SHIFT SUPERVISOR: SANDRA 10/22/19 1028 RPT#: [id number] DC DATE:10/21/19 STATUS: DIS IN [facility] [address] [place] [address] END OF REPORT
--- NOTE | 2019-10-22 10:36 | MORECARE ---
CASE MANAGEMENT DISCHARGE SUMMARY PATIENT: STEPHON BANG UNIT: [id number] ADM DATE: 10/10/19 AGE: 79 : 41 SEX: F ROOM/BED: D.4633 AUTHOR: ASHLEY,DOC PHYSICIAN: REFERRING PHYSICIAN: COLLETTE ARIAS MD DATE OF SERVICE: 10/22/19 Discharge Plan Patient Name: STEPHON BANG Facility: [facility]:[place] : 1940 Planned Disposition: Inpatient Rehab Anticipated Discharge Date: 10/19/19 Discharge Date: 10/21/2019 Expected LOS: 9 Initial Reviewer: [email or web address] Initial Review Date: 10/10/2019 Generated: 10/22/19 11:36 am Comments DCP- Discharge Planning Updated by [email or web address]: Lauren Vidal on 10/22/19 9:[address] late entry 10/21/19 CM notified of discharge. CM contacted [place] Patient of 02 needs records faxed. [place] Patient was in [place] when CM spoke with him and he will contact patient's son Riley and give him portable tank to bring to pick patient up. He will also set up concentrator in the home. DAREN for [facility] notified and referral sent. They will contact patient of admit appointment. CM will continue to follow and assist as needed with discharge planning / needs IMM signed 10/21/19 @ 1500 DCP- Discharge Planning Updated by [id number]: Nico Vaughn on 10/18/19 2:[address] Patient Name: STEPHON BANG Encounter No: [id number] : 1940 Primary Insurance: MEDICARE A & B Anticipated DC Date: 10-19-2019 Planned Disposition: Inpatient Rehab External Planned Provider: [facility] INPATIENT REHAB DCP follow-up note: CM RECEIVED INPATIENT REHAB PRESCREENING ORDER, MET WITH PT IN ROOM, DISCUSSED INPATIENT REHAB OPTIONS, LOCATIONS AND PROVIDERS. PT STATES SHE HAS DISCUSSED THIS WITH HER SON AND THEY HAVE DECIDED FOR REHAB AT [facility], THEY DO NOT WANT TO GO TO [place] FOR REHAB. CHOICE SIGNED, IMPORTANT MESSAGE FROM MEDICARE PROVIDED AND EXPLAINED. CM NOTIFEID ELVIRA OF INPAITIENT REHAB. REHAB PREFER'S PT TO BE 4 LITERS OR LESS OXYGEN NEED, BUT WILL SCREEN PT. CM WAITING INPATIENT REHAB PRESCREENING RESULTS WELL ADMISSION DETERMINATION FROM INPATIENT REHAB. Nico Karluk DCP- Discharge Planning Updated by [id number]: Priya Hernandez on 10/10/19 3:[address] Patient Name: STEPHON BANG Admission Status: Elective Accout number: [id number] Admission Date: 10-10-2019 : 1940 Admission Diagnosis: Attending: COLLETTE ARIAS Current LOS: 1 Planned Disposition: Primary Insurance: MEDICARE A & B Discharge Planning Comments: CM met with patient and Riley (son) to complete initial dc planning assessment. CM educated patient on the CM role and verbal consent given by patient to complete assessment. CM verified patient's address, phone number, and emergency contact phone numbers. Patient lives at home with her and son (Riley). Pt has home CPAP and nebulizer. States she had oxygen at one time. DAREN signed to resume [facility] patient. CM discussed the possibility of oxygen testing at home. CM discussed the possibility of home health and/or rehab. Patient refused at this time. CM stated we will follow patient status during hospitalization and assist as needed. At discharge patient plans to return home and feels this is a safe discharge. Transportation provider at discharge will be Riley [phone] . CM will continue to follow and will assist as needed with dc plans/needs. Farebox Repairer: Priya Hernandez MSN,RN,CM DCP- Discharge Planning Updated by [email or web address]: Priya Hernandez on 10/10/19 8:[address] JIMENEZ SERVED, EXPLAINED, AND SIGNED BY PATIENT. THE ORIGINAL WAS PROVIDED TO THE PATIENT AND COPY PLACED ON CHART. DCPIA - Discharge Planning Initial Assessment Updated by [id number]: Priya Hernandez on 10/10/19 4:36 pm * Is the patient Alert and Oriented? Yes * How many steps to enter\exit or inside your home? 0/0 * PCP ELPIDIO ACOSTA [phone] * Pharmacy [facility] * Preadmission Environment Home with Family * ADLs Partial Dependent * Partial ADLs (Assistance needed) Bathing Dressing * Equipment Bedside Commode CPAP Elevated [place] Seat Nebulizer Rolling Walker Shower Chair * List name and contact numbers for known caregivers / representatives who currently or will assist patient after discharge: SON: RILEY [phone] * Verbal permission to speak to the caregivers and representatives has been obtained from the patient. Yes * Community resources currently utilized None * Additional services required to return to the preadmission environment? Yes * Can the patient safely return to the preadmission environment? No * Has this patient been hospitalized within the prior 30 days at any hospital? No Coverage Notice Reviewer: [id number] Nicole Vidal Notice Issued Date-Time: 10/21/2019 15:00 Notice Type: Patient Choice Letter Notice Delivered To: Patient Relationship to Patient: Self Strategic Planning Specialist Name: Delivery Method: HAND - Hand Delivered Christina Days: Prior Verbal Notification: Recipient Understood Notice: Yes Recipient Signature: Yes Med Rec Note Co-signed by Attending: Coverage Notice Comment: [facility] Reviewer: [id number] Nicole Vidal Notice Issued Date-Time: 10/21/2019 15:00 Notice Type: IM Discharge Notice Notice Delivered To: Patient Relationship to Patient: Self Strategic Planning Specialist Name: Delivery Method: HAND - Hand Delivered Christina Days: Prior Verbal Notification: Recipient Understood Notice: Yes Recipient Signature: Yes Med Rec Note Co-signed by Attending: Coverage Notice Comment: Reviewer: [id number] Nicole Vaughn Notice Issued Date-Time: 10/18/2019 15:30 Notice Type: Patient Choice Letter Notice Delivered To: Patient Relationship to Patient: Strategic Planning Specialist Name: Delivery Method: HAND - Hand Delivered Christina Days: Prior Verbal Notification: Recipient Understood Notice: Yes Recipient Signature: Yes Med Rec Note Co-signed by Attending: Coverage Notice Comment: [facility] INPATIENT REHAB Reviewer: [id number] Nicole Hernandez Notice Issued Date-Time: 10/10/2019 16:15 Notice Type: Patient Choice Letter Notice Delivered To: Patient Relationship to Patient: Strategic Planning Specialist Name: Delivery Method: HAND - Hand Delivered Christina Days: Prior Verbal Notification: Recipient Understood Notice: Yes Recipient Signature: Yes Med Rec Note Co-signed by Attending: Coverage Notice Comment: DAREN SIGNED TO [facility] PATIENT Reviewer: [email or web address] Nicole Hernandez Notice Issued Date-Time: 10/10/2019 7:55 Notice Type: Medicare Outpatient Observation Notice Notice Delivered To: Patient Relationship to Patient: Strategic Planning Specialist Name: Delivery Method: MAIL - Mail Christina Days: Prior Verbal Notification: Recipient Understood Notice: Yes Recipient Signature: Yes Med Rec Note Co-signed by Attending: Coverage Notice Comment: JIMENEZ SERVED, EXPLAINED, AND SIGNED BY PATIENT. THE ORIGINAL WAS PROVIDED TO THE PATIENT AND COPY PLACED ON CHART. Reviewer: [id number] Nicole Vaughn Notice Issued Date-Time: 10/18/2019 15:30 Notice Type: IM Discharge Notice Notice Delivered To: Patient Relationship to Patient: Strategic Planning Specialist Name: Delivery Method: HAND - Hand Delivered Christina Days: Prior Verbal Notification: Recipient Understood Notice: Yes Recipient Signature: Yes Med Rec Note Co-signed by Attending: Coverage Notice Comment: Last DP export: 10/22/19 9:29 am Patient Name: STEPHON BANG Page [phone] at 1036 All edits/amendments must be made on the electronic document DICTATION DATE: 10/22/19 1036 STUDENT: SANDRA 10/22/19 1036 RPT#: [id number] DC DATE:10/21/19 STATUS: DIS IN [facility] [address] [place] [address] END OF REPORT
== END 2019-10-21 20:47 | disposition home health service (06) | DRG 286 ==
LOC: D.M2 09:59 → D.CATH 09:59 → D.M2 14:44
PROVIDERS: Family Medicine; Internal Medicine Cardiovascular Disease; Thoracic Surgery (Cardiothoracic Vascular Surgery); ADMIT Internal Medicine Nephrology; ATTEND Internal Medicine Nephrology
PROC: B3101ZZ Fluoroscopy of Thoracic Aorta using Low Osmolar Contrast (ICD-10-PCS; 2019-10-09)
PROC: 4A023N7 Measurement of Cardiac Sampling and Pressure, Left Heart, Percutaneous Approach (ICD-10-PCS; 2019-10-09)
PROC: B2111ZZ Fluoroscopy of Multiple Coronary Arteries using Low Osmolar Contrast (ICD-10-PCS; principal; 2019-10-09 13:30)
DX: I25.119 Atherosclerotic heart disease of native coronary artery with unspecified angina pectoris (principal); J96.02 Acute respiratory failure with hypercapnia; J18.9 Pneumonia, unspecified organism; I50.31 Acute diastolic (congestive) heart failure; J96.01 Acute respiratory failure with hypoxia; Z68.42 Body mass index [BMI] 45.0-49.9, adult; N39.0 Urinary tract infection, site not specified; J44.0 Chronic obstructive pulmonary disease with (acute) lower respiratory infection; J98.11 Atelectasis; E11.9 Type 2 diabetes mellitus without complications; E66.01 Morbid (severe) obesity due to excess calories; I11.0 Hypertensive heart disease with heart failure; J20.9 Acute bronchitis, unspecified; Z87.891 Personal history of nicotine dependence

== ENCOUNTER → 2020-01-12 13:23 | Outpatient (CLI) | payer MEDICARE, OTHER ==
[2019-10-10 13:49] VITALS: BMI 45.2
[~2020-01-12 13:23] MED LIST: ACETAMINOPHEN500 M1 PO; ALENDRONATE SOD35 MG PO; FLUTICASONE PRO16 GM NASAL; FUROSEMIDE40 MG PO; GLUCOTROL 5 MG T5 MG PO; IPRAT-ALBUT 0.5-3 ML UPD; KLOR-CON 1010 MEQ PO; LIDODERM 5 %1 PATCH TRANSDERM; LIPITOR40 MG PO; NORVASC10 MG PO; PLAVIX75 MG PO; RANITIDINE HCL150 M1 PO; SYNTHROID75 MCG PO; VENTOLIN HFA [SP8 GM INH; ZESTRIL20 MG PO; ZETIA10 MG PO; ZYRTEC10 MG PO
== END | disposition home or self-care (01) ==
LOC: D.RT 13:23
PROVIDERS: ATTEND Internal Medicine Pulmonary Disease
DX: J44.9 Chronic obstructive pulmonary disease, unspecified (principal)

== ENCOUNTER 2020-03-21 11:51 | Inpatient (IN) | payer MEDICARE, OTHER ==
[~2020-03-21] VITALS: Ht 160 cm; Wt 119.5 kg
[2020-03-21 13:07] LABS: BASOPHILS 0.2 % (0-2); EOSINOPHILS 1.9 % (0-7); HEMATOCRIT 37.4 % (36.0-48.0); HEMOGLOBIN 12.5 g/dL (12-16); IMMATURE GRANULOCYTES 0.8 % (0-5); LYMPHOCYTES 12.5 % (15-50); MCH 32.9 pg (26.0-34.0); MCHC 33.4 g/dL (31.0-37.0); MCV 98.4 fL (80.0-100.0); MEAN PLATELET VOLUME 9.1 fL (7.4-10.4); MONOCYTES 7.6 % (2-11); RDW 13.3 % (11.5-14.5)
[2020-03-21] MEDS ORDERED: BAYER CHEWABLE81 MG PO (13:07)
[2020-03-21 13:11] LABS: PLATELET COUNT 239 10x3/uL (130-400)
[2020-03-21] MEDS ORDERED: KLONOPIN0.5 MG PO (13:13)
[2020-03-21] MEDS ORDERED: CALCIUM CITRATE PO (13:14)
[2020-03-21] MEDS ORDERED: CYMBALTA60 MG PO (13:15)
[2020-03-21] MEDS ORDERED: MUCINEX DM ER1 EAC1 PO (13:16)
[2020-03-21] MEDS ORDERED: TUMS X-STR300 MG PO (13:16)
[2020-03-21] MEDS ORDERED: METAMUCIL PACKE1 PKT PO (13:17)
[2020-03-21 13:20] LABS: BILIRUBIN NEGATIVE (NEGATIVE); KETONE NEGATIVE (NEGATIVE); NITRITE NEGATIVE (NEGATIVE); UROBILINOGEN NORMAL (NORMAL)
[2020-03-21 13:21] LABS: BACTERIA FEW /hpf (NONE SEEN); WHITE CELLS - URINE 0-5 /hpf (0-5)
[2020-03-21 13:28] LABS: ALBUMIN 4.1 g/dL (3.4-5.0); ANION GAP 11.7 mmol/L (8-16); BILIRUBIN - TOTAL 0.38 mg/dL (0.2-1.3); CALCIUM 8.6 mg/dL (8.5-10.1); CREATININE - SERUM 1.5 mg/dL (0.6-1.3); PHOSPHOROUS 4.4 mg/dL (2.5-4.9); POTASSIUM - SERUM 4.7 mmol/L (3.5-5.1); PROTEIN - SERUM 7.2 g/dL (6.4-8.2); T4 THYROXIN - FREE 1.25 ng/dL (0.76-1.46); THYROID STIMULATING HORMONE 2.85 uIU/mL (0.36-3.74); URIC ACID 8.1 mg/dL (2.6-7.2)
[2020-03-21 13:44] LABS: APTT 28.9 SECONDS (22.8-39.4); INR 0.91 (0.85-1.17); PROTIME 12.3 SECONDS (11.6-15.0)
[2020-03-26] VITALS (43 sets, daily range): BP systolic 90–148; BP diastolic 43–76; BMI 44.0; BMI 47.6
[2020-03-27] VITALS (68 sets, daily range): BP systolic 87–134; BP diastolic 42–63; BMI 46.8
--- NOTE | 2020-03-27 01:10 | NUR ---
2133- DR LOZOYA GIVEN REPORT OF GABRIELA AT 0.6MCG AND PROPOFOL AT 8MCG DUE TO B/P AND ABNORMAL OUTPUT TO MARIALUISA DRAIN. RECEIVED ORDER FOR ABG, REPORTED RESULTS WITH ORDER FOR 1 UNIT OF PRBC AND 1 AMP OF CALCIUM CHLORIDE. CALCIUM AND PRBC GIVEN AND PT TOLERATED WELL. GABRIELA 0.3MCG AND PROPOFOL 20MCG. SB/P >100, WILL CONTINUE TO OBSERVE AND TITRATE TOLERATED.
[2020-03-27 06:28] LABS: HEMATOCRIT 29.8 % (36.0-48.0); HEMOGLOBIN 9.6 g/dL (12-16); MCH 31.7 pg (26.0-34.0); MCHC 32.2 g/dL (31.0-37.0); MCV 98.3 fL (80.0-100.0); MEAN PLATELET VOLUME 9.6 fL (7.4-10.4); RBC 3.03 10x6/uL (4.00-5.40); RDW 15.4 % (11.5-14.5); WBC 9.3 10x3/uL (4.8-10.8)
[2020-03-27 06:51] LABS: ALBUMIN 2.7 g/dL (3.4-5.0); ANION GAP 15.5 mmol/L (8-16); BILIRUBIN - TOTAL 0.35 mg/dL (0.2-1.3); CALCIUM 7.6 mg/dL (8.5-10.1); CARBON DIOXIDE 24.3 mmol/L (21.0-32.0); CREATININE - SERUM 1.4 mg/dL (0.6-1.3); POTASSIUM - SERUM 4.8 mmol/L (3.5-5.1); PROTEIN - SERUM 5.3 g/dL (6.4-8.2)
--- NOTE | 2020-03-27 09:11 | TEE ---
PATIENT:STEPHON BANG MEDICAL RECORD: [id number] LOCATION:[place] [address] AGE OF PATIENT: 79 ADMISSION DATE: 03/26/20 SEX: F REFERRING PHYSICIAN: INTERPRETING PHYSICIAN: LETITIA BIRMINGHAM MD TRANSESOPHAGEAL ECHOCARDIOGRAM Date: 03/26/20 SCARLETT CHARGE Y INDICATIONS: CABG PREMEDICATIONS: PATIENT'S RESPONSE PROCEDURE DOPPLER MEASUREMENTS: LVIT LA PA RA LVOT RVOT Asc. Ao AV Gradient Peak AV Mean AV Area MV Gradient Peak MV Mean MV Area INTERPRETATION: Doppler: 2-D: COLOR FLOW DOPPLER NORMAL SALINE STUDY: MISCELLANOUS: DIAGNOSIS: PLAN: Traffic Control Operator:3 Dr. Castro Roll Wrapper: Tammy MORAN COMMENTS: PACS DATE OF SERVICE: 03/26/2020 PROCEDURE: Intraoperative SCARLETT. Preop shows normal LV and wall motion. Normal wall thickening, EF 50%. Aortic valve is tricuspid with good valve excursion. The left atrium appears normal. Mitral valve appears normal. Trivial MR. Postoperatively, good wall motion throughout all segments and normal function. EF greater than or equal to 55%. Aortic valve is tricuspid and good valve excursion. No significant AI. Left TRANSESOPHAGEAL ECHOCARDIOGRAM REPORT [id number] STEPHON BANG atrium appears normal. Mitral valve appears normal. Trivial MR. TRANSINT:[id number] Voice Confirmation ID: [id number] DOCUMENT ID: [id number] at 0911 CC: [id number] DICTATION DATE: 03/26/20 1626 DENTAL DIRECTOR: 03/27/20 0036 ADM IN [place] [id number] [place] [address]
--- NOTE | 2020-03-27 10:34 | NUR ---
RT AT BEDSIDE TO PERFORM ABG'S AND PREPARE PT FOR EXTUBATION.
--- NOTE | 2020-03-27 11:23 | NUR ---
DR. HILARIO NOTIFIED OF PATIENT EXTUBATION. SPO2 OF 92-94%.
--- NOTE | 2020-03-27 11:32 | OP ---
PATIENT NAME: STEPHON BANG MEDICAL RECORD: [id number] :[birth year] LOCATION:[id number] ADMISSION DATE:03/26/20 SURGEON: ABRAHAM LOZOYA MD DATE OF OPERATION: 03/26/2020 SURGEON: Abraham Lozoya MD PROCEDURE PERFORMED: 1. Coronary artery bypass graft times 3 (left internal mammary artery to LAD, reverse saphenous vein graft from aorta to obtuse marginal, aorta to posterior descending artery). 2. Endoscopic saphenous vein harvest. PREOPERATIVE DIAGNOSES: Coronary artery disease including left main coronary stenosis with morbid obesity and COPD. POSTOPERATIVE DIAGNOSES: Coronary artery disease including left main coronary stenosis with morbid obesity and COPD. ANESTHESIA: General endotracheal anesthesia. ESTIMATED BLOOD LOSS: Total cardiopulmonary bypass with Cell Saver retransfusion. COMPLICATIONS: None. SPECIMENS: None. CONDITION: Stable. DISPOSITION: CV ICU. OPERATIVE FINDINGS: 1. Good contractility. Trace mitral regurgitation. 2. Large fatty heart. 3. Good quality greater saphenous vein. 4. Good quality left internal mammary artery with thick fatty mediastinal pad on the left. LAD was 1.75 mm with severe disease. 5. Obtuse marginal 1.5 mm. 6. Posterior ascending artery 1.75 mm with severe disease. 7. Calcified plaque in the distal ascending aorta. OPERATIVE INDICATION: Coronary artery disease with severe dyspnea and left main coronary artery stenosis. DESCRIPTION OF PROCEDURE: The patient was brought to the operating suite. General anesthesia was obtained. The patient was prepped and draped. Greater saphenous vein harvested endoscopically, right lower extremity. Side branches were divided with electrocautery. The vessel was ligated proximally and distally removed. Side branches were tied. Ligature irrigated and closed. Median sternotomy incision was made. Subcutaneous tissue divided with electrocautery. Sternum was divided with a saw. The left hemisternum was elevated. Left pleural cavity was entered. Left internal mammary artery and vein was taken down as a pedicle graft. OPERATIVE REPORT [id number] BETISTEPHON SEGOVIA Sternal retractor was placed. Pericardium was opened. Heparin was given. Aorta was cannulated. Dual stage venous cannula was inserted. The patient was placed on cardiopulmonary bypass. Sites for distal anastomoses were selected. The internal mammary was clipped distally and made ready for anastomosis. The patient was cooled. Antegrade cardioplegia cannula was inserted. Crossclamp was placed. Cardioplegia given antegrade and also down the completed vein grafts at 50 and 20-minute intervals. Distal anastomosis was performed in standard technique. Proximal anastomosis with single cross-clamp technique. Aortic root de-aired and flow restored. After trying the proximal anastomoses, proximal and distal anastomotic sites inspected for bleeding, single 6-0 then proximal. The patient was in a spontaneous rhythm and weaned from cardiopulmonary bypass and was stable. The patient decannulated. The cannula sites were oversewn. Protamine was given. Thorough irrigation was undertaken. Graft lay appropriately. The left chest was evacuated and irrigated. The internal mammary harvest site inspected for bleeding. Sternum was closed with wires. Fascia was closed. Subcutaneous tissues were closed. Skin was closed. Dermabond was placed. The needle and sponge counts reported correct. The patient was taken to ICU in stable condition. TRANSINT:[id number] Voice Confirmation ID: [id number] DOCUMENT ID: [id number] ABRAHAM LOZOYA MD at 1132 CC: CHANCE DOTSON M.D. and ELPIDIO PRICE [id number] DICTATION DATE: 03/26/20 1425 HELP DESK ADMINISTRATOR: 03/26/20 3728 ADM IN [facility] [address] [place] [id number]
--- NOTE | 2020-03-27 14:41 | NUR ---
PT HERE PATIENT DANGLED ON BEDSIDE FOR APPROX 10 MINS. PATIENT TOLERATED WELL.
[2020-03-28] VITALS (24 sets, daily range): BP systolic 17–131; BP diastolic 45–67
[2020-03-28 05:55] LABS: HEMATOCRIT 26.1 % (36.0-48.0); HEMOGLOBIN 8.3 g/dL (12-16); MCH 31.8 pg (26.0-34.0); MCHC 31.8 g/dL (31.0-37.0); MEAN PLATELET VOLUME 9.3 fL (7.4-10.4); RBC 2.61 10x6/uL (4.00-5.40); RDW 15.5 % (11.5-14.5); WBC 8.5 10x3/uL (4.8-10.8)
[2020-03-28 06:51] LABS: ALBUMIN 2.4 g/dL (3.4-5.0); ANION GAP 11.4 mmol/L (8-16); BILIRUBIN - TOTAL 0.38 mg/dL (0.2-1.3); CALCIUM 7.2 mg/dL (8.5-10.1); CARBON DIOXIDE 26.8 mmol/L (21.0-32.0); CREATININE - SERUM 1.2 mg/dL (0.6-1.3); POTASSIUM - SERUM 4.2 mmol/L (3.5-5.1); PROTEIN - SERUM 5.2 g/dL (6.4-8.2)
--- NOTE | 2020-03-28 10:45 | NUR ---
PATIENT UP TO CHAIR WITH PHYSICAL THERAPY. PATIENT TOLERATED WELL.
--- NOTE | 2020-03-28 22:45 | NUR ---
PT C/O PAIN TO INCISIONS 7/10 ON SCALE. PERCOCET-10 1 TAB GIVEN PER ORDER. PT REPOSITIONED FOR COMFORT. CONT TO MONITOR.
[2020-03-29] VITALS (52 sets, daily range): BP systolic 80–136; BP diastolic 36–87
--- NOTE | 2020-03-29 05:00 | NUR ---
CHG BATH COMPLETED. SUBSTERNAL DRESSING CHANGED PER ORDER. PT GETS SOB WITH TURNING NOTED. REPOSITIONED FOR COMFORT X2 NURSES. HOB UP. ENCOUREGED TO TAKE SBB. PT OBLIGED. O2SAT 92% . WILL CONT TO MONITOR.
[2020-03-29 06:30] LABS: HEMATOCRIT 26.1 % (36.0-48.0); HEMOGLOBIN 8.2 g/dL (12-16); MCH 31.7 pg (26.0-34.0); MCHC 31.4 g/dL (31.0-37.0); MCV 100.8 fL (80.0-100.0); RBC 2.59 10x6/uL (4.00-5.40); RDW 14.8 % (11.5-14.5); WBC 7.1 10x3/uL (4.8-10.8)
[2020-03-29 06:41] LABS: ALBUMIN 2.2 g/dL (3.4-5.0); ANION GAP 10.6 mmol/L (8-16); BILIRUBIN - TOTAL 0.59 mg/dL (0.2-1.3); CALCIUM 7.2 mg/dL (8.5-10.1); CARBON DIOXIDE 27.5 mmol/L (21.0-32.0); CREATININE - SERUM 1.1 mg/dL (0.6-1.3); POTASSIUM - SERUM 4.1 mmol/L (3.5-5.1); PROTEIN - SERUM 5.5 g/dL (6.4-8.2)
--- NOTE | 2020-03-29 10:20 | NUR ---
NUTRITION F/U CHART REVIEWED. NURSING REPORTS PT WITH GOOD INTAKE REG DIET. WILL CONTINUE TO MONITOR. RD FOLLOWING
--- NOTE | 2020-03-29 16:07 | NUR ---
0820: UNCONTROLLED ATRIAL FIB NOTED ON MONITOR. DR. LOZOYA NOTIFIED. NEW ORDERS REC'D. 0826: 150MG AMIODARONE GIVEN IV. 0900: DR. LOZOYA HERE. 0915: LOPRESSOR 2.5MG GIVEN IVP FOR CONTINUED UCAF. 1115: DR. CALZADA HERE. VERSED 2 MG GIVEN IV AND SYNC CARDIOVERTED BY DR. CALZADA. CONVERTED TO ST BUT WENT BACK INTO UCAF. NO FURTHER ORDERS FROM DR. CALZADA. 1430: DR. LOZOYA HERE. NEW ORDER REC'D FOR DIGOXIN. 1600: DR. CALZADA NOTIFIED OF CONTINUED A FIB WITH RATE 120S TO 140S. INFORMED OF DOSE OF DIGOXIN BY DR. LOZOYA. NO FURTHER ORDERS.
--- NOTE | 2020-03-29 19:00 | NUR ---
PT ASSESSMENT COMPLETED AT THIS TIME, NO CHANGES NOTED FROM NURSE REPORT, PT IS RESTING WITH EYES CLOSED AND AWAKES TO NAME, PT IS AAOX3. PT STATES THAT SHE IS DOING SOME BETTER AFTER THE PAIN MEDICINE, NUT ORCHARDIST SHOWS A-FIB WITH RVR, RATES FOR 120-140'S. PT ADVISED THAT SHE IS DOING OKAY BUT IS FEELING LIKE SHE HAS A LOT OF GAS BUILT UP. WILL MONITOR FOR CHANGES
--- NOTE | 2020-03-29 21:07 | NUR ---
THRASHER FEEDER PAGER PAGED FOR CARDIOLOGY, DUE TO HR NEW ORDER FOR DIGOXIN 0.25MG IV X ONE DOSE GIVEN PER DR BIRMINGHAM
--- NOTE | 2020-03-29 23:00 | NUR ---
PT REASSESSMENT COMPLETED AT THIS TIME, NO CHANGES NOTED FROM PRVIOUS EXAM
[2020-03-30] VITALS (27 sets, daily range): BP systolic 84–140; BP diastolic 47–77
--- NOTE | 2020-03-30 01:00 | NUR ---
PT RESTING ON BIPAP, NO DISTRESS NOTED
--- NOTE | 2020-03-30 04:20 | NUR ---
CARDIOLOGY RADAR ENGINEER PAGER PAGED DUE TO SUSATINED HR 140'S
--- NOTE | 2020-03-30 05:06 | NUR ---
CARDIOLOGY ASSISTANT FILM EDITOR PAGER PAGED AGAIN
--- NOTE | 2020-03-30 05:07 | NUR ---
DR BIRMINGHAM CALLED BACK AND ORDERED TO GIVE DIGOXIN 0.125MG IV ONE TIME
[2020-03-30 05:50] LABS: HEMATOCRIT 25.2 % (36.0-48.0); MCH 32.1 pg (26.0-34.0); MCHC 31.7 g/dL (31.0-37.0); MCV 101.2 fL (80.0-100.0); MEAN PLATELET VOLUME 9.1 fL (7.4-10.4); RBC 2.49 10x6/uL (4.00-5.40); RDW 14.7 % (11.5-14.5); WBC 6.9 10x3/uL (4.8-10.8)
[2020-03-30 05:59] LABS: ALBUMIN 2.1 g/dL (3.4-5.0); ANION GAP 12.4 mmol/L (8-16); BILIRUBIN - TOTAL 0.36 mg/dL (0.2-1.3); CALCIUM 7.4 mg/dL (8.5-10.1); CARBON DIOXIDE 25.6 mmol/L (21.0-32.0); CREATININE - SERUM 1.2 mg/dL (0.6-1.3); MAGNESIUM - SERUM 2.3 mg/dL (1.8-2.4); PROTEIN - SERUM 5.5 g/dL (6.4-8.2)
--- NOTE | 2020-03-30 09:58 | NUR ---
0935: DR. JACOBO HERE. 0937: VERSED 2 MG GIVEN PREMED FOR CARDIOVERSION. 0938: SYNC CARDIOVERSION DONE BY DR. CALZADA @ 200J. 0939: REMAINS IN UCAF. SYNC CARDIOVERSION DONE BY DR. CALZADA @ 360J. MONITOR SHOWS ST.
--- NOTE | 2020-03-30 19:00 | NUR ---
PT ASSESSMENT COMPLETED AT THIS TIME, NO CHANGES NOTED FROM NURSE REPORT, PT IS AAOX4, PT ADVISED THAT SHE IS DOING BETTER TODAY SINCE HER HR HAS CAME DOWN. PT C/O SORENESS TO BUTTOCKS, PT DENIES AND DISTRESS. CM SHOWS SR RATE OF 100, WILL MONITOR FOR CHANGES.
--- NOTE | 2020-03-30 20:48 | NUR ---
PT ASSISTED ON THE BEDPAN BUT PT DID NOT HAVE ANY RESULTS, PT ADVISED THAT SHE HAS BEEN PASSING SOME GAS TODAY. PT WAS REPOSTIONED AND FOAM WEDGES USED TO ROTATE PATIENT OFF HER BUTTOCKS. PT ADVISED THAT IT FELT SOME BETTER.
--- NOTE | 2020-03-30 23:00 | NUR ---
PT REASSESSMENT COMPLETED AT THIS TIME, NO CHANGES NOTED FROM PREVIOUS EXAM.
[2020-03-31] VITALS (23 sets, daily range): BP systolic 95–158; BP diastolic 43–99
--- NOTE | 2020-03-31 01:00 | NUR ---
PT RESTING WITH EYES CLOSED ON BIPAP, RESP EVEN AND NON LABORED, VSS
--- NOTE | 2020-03-31 03:00 | NUR ---
PT REASSESSMENT COMPLETED AT THIS TIME, NO CHANGES NOTED FROM PREVIOUS EXAM, VSS
--- NOTE | 2020-03-31 05:00 | NUR ---
PT AWAKES TO NURSE ENTRY INTO ROOM, NO DISTRESS NOTED, VSS
[2020-03-31 06:10] LABS: HEMATOCRIT 24.5 % (36.0-48.0); HEMOGLOBIN 7.6 g/dL (12-16); MCH 31.3 pg (26.0-34.0); MCV 100.8 fL (80.0-100.0); MEAN PLATELET VOLUME 9.1 fL (7.4-10.4); RBC 2.43 10x6/uL (4.00-5.40); RDW 14.4 % (11.5-14.5); WBC 6.5 10x3/uL (4.8-10.8)
[2020-03-31 06:33] LABS: ALBUMIN 2.1 g/dL (3.4-5.0); ANION GAP 9.6 mmol/L (8-16); BILIRUBIN - TOTAL 0.33 mg/dL (0.2-1.3); CALCIUM 7.3 mg/dL (8.5-10.1); CARBON DIOXIDE 28.2 mmol/L (21.0-32.0); CREATININE - SERUM 1.2 mg/dL (0.6-1.3); POTASSIUM - SERUM 3.8 mmol/L (3.5-5.1); PROTEIN - SERUM 5.4 g/dL (6.4-8.2)
--- NOTE | 2020-03-31 14:55 | NUR ---
1120: DR. CALZADA PAGEDereje REGARDING HIGH HR. 1320: DR. BIRMINGHAM PAGEDereje REGARDING HIGH HR. 1452: DR. BIRMINGHAM PAGEDereje REGARDING HIGH HR. 1455: DR. BIRMINGHAM RETURNED PAGE. NEW ORDER REC'D.
--- NOTE | 2020-03-31 19:00 | NUR ---
REPORT RECIEVED, CARE ASSUMED. ASSESSMENT COMPLETE, PLEASE SEE FLOW SHEETS FOR DETAILS. HEMODYNAMICALLY STABLE AT THIS TIME. WILL CONTINUE PLAN OF CARE.
--- NOTE | 2020-03-31 21:56 | NUR ---
PT RHYTHM COVERTED TO NSR RATE OF 88. WILL MONITOR.
[2020-04-01] VITALS (17 sets, daily range): BP systolic 86–150; BP diastolic 41–115
--- NOTE | 2020-04-01 05:38 | NUR ---
0445 DRESSING CHANGE PROVIDED TO MARIALUISA DRAIN AND TPM WIRE SITES PER ORDERS.
[2020-04-01 06:22] LABS: HEMATOCRIT 25.6 % (36.0-48.0); HEMOGLOBIN 7.9 g/dL (12-16); MCH 31.3 pg (26.0-34.0); MCHC 30.9 g/dL (31.0-37.0); MCV 101.6 fL (80.0-100.0); MEAN PLATELET VOLUME 9.3 fL (7.4-10.4); RBC 2.52 10x6/uL (4.00-5.40); RDW 14.7 % (11.5-14.5); WBC 6.3 10x3/uL (4.8-10.8)
[2020-04-01 06:38] LABS: ALBUMIN 2.1 g/dL (3.4-5.0); ANION GAP 9.6 mmol/L (8-16); BILIRUBIN - TOTAL 0.31 mg/dL (0.2-1.3); CALCIUM 7.3 mg/dL (8.5-10.1); CARBON DIOXIDE 27.4 mmol/L (21.0-32.0); CREATININE - SERUM 1.3 mg/dL (0.6-1.3); PROTEIN - SERUM 5.7 g/dL (6.4-8.2)
--- NOTE | 2020-04-01 07:00 | NUR ---
REPORT RECEVIED FROM THE OFF GOING RN. SEE ASSESSMENT IN THE PTS FLOW SHEET. PT IN A NSR. PT LYING IN BED COMFORTABLY. VSS. BREAKFAST TRAY PROVIDED FOR THE PT. INSTRUCTED PT TO USE HER IS 10X'S/H. PT PULLS ABOUT 500 ON HER IS. ALL INCISION C/D/I. MARIALUISA DRAIN COMPRESSED. CALL LIGHT IN REACH. WILL CONT POC.
--- NOTE | 2020-04-01 11:23 | NUR ---
Nutrition Follow-up: POD 6 CABG. Pt sleeping soundly on bipap at time of visit this AM. Chart reviewed. Diet: Regular PO intake: 73% avg x 9 meals Wt: 283# (04/01) Labs noted: Na 135, Glu 119, Ca 7.3, Alb 2.1 Meds noted: Reglan, Protonix, Senokot, Colace, KCl, Zofran, Lasix, KDur -Encourage PO intake and honor food preferences within diet restrictions. -Monitor wt. -RD following.
--- NOTE | 2020-04-01 17:19 | NUR ---
PT WENT INTO AFIB RVR RATE 140-160. BP 130/60. DR LOZOYA PAGED AND SAID TO DEFER TO CARDIOLOGY. DR DOTSON PAGED. GIVEN 5MG IV LOPRESSOR AND IF HER RATE DOSNTE COME DOWN IN 30 MINS TO 1 HOUR, CALL HIM BACK.
--- NOTE | 2020-04-01 18:30 | NUR ---
A. fib rates 100s to 130s and BP marginal at 96/58. Dr. Garcia paged. Restart IV amnio at 1 mg/h and keep 1 mg/h overnight. If patient heart rate does not slow down after a couple hours, call Dr. Garcia.
--- NOTE | 2020-04-01 18:33 | NUR ---
ORAL CARE DONE WITH PERIDEX
[2020-04-02] VITALS (24 sets, daily range): BP systolic 93–154; BP diastolic 33–99
--- NOTE | 2020-04-02 02:16 | NUR ---
HR CONVERTED TO 77 AT 2342. WILL CONTINUE TO OBSERVE.
[2020-04-02 06:16] LABS: % SATURATION 16 % (15-55); IRON 27 ug/dl (35-150); TOTAL IRON BIND CAPACITY 159 ug/dl (260-445); UNSAT IRON BIND CAPACITY 132 ug/dl (150-375)
[2020-04-02 06:26] LABS: HEMATOCRIT 23.1 % (36.0-48.0); MCH 31.9 pg (26.0-34.0); MCHC 31.2 g/dL (31.0-37.0); MCV 102.2 fL (80.0-100.0); MEAN PLATELET VOLUME 9.2 fL (7.4-10.4); RBC 2.26 10x6/uL (4.00-5.40); RDW 14.8 % (11.5-14.5); WBC 6.7 10x3/uL (4.8-10.8)
[2020-04-02 06:46] LABS: HEMOGLOBIN 7.2 g/dL (12-16)
[2020-04-02 06:50] LABS: ANION GAP 10.2 mmol/L (8-16); BILIRUBIN - TOTAL 0.24 mg/dL (0.2-1.3); CALCIUM 7.2 mg/dL (8.5-10.1); CARBON DIOXIDE 26.1 mmol/L (21.0-32.0); CREATININE - SERUM 1.4 mg/dL (0.6-1.3); POTASSIUM - SERUM 4.3 mmol/L (3.5-5.1); PROTEIN - SERUM 5.4 g/dL (6.4-8.2)
--- NOTE | 2020-04-02 07:29 | NUR ---
DR. LOZOYA MADE AWARE OF HGB 7.2, NO ORDERS GIVEN.
--- NOTE | 2020-04-02 10:17 | NUR ---
Rehab Note- Acute Inpatient Rehab prescreen order received. The patient currently is on Amiodarone IV and also on 9L/High Flow oxygen at this time. Will follow at this time. Thank you for this referral! Bri Mueller RN Clinical Liaison, [facility] Rehab
--- NOTE | 2020-04-02 11:23 | NUR ---
0700-PT UP IN CHAIR-REQUESTING PAIN MEDICATION-NOTED DOCUMENTED TIME GIVEN-PT STATED USES HIGHER DOSE AT HOME -THROUGH PAIN CLINIC-RESP RX INPLACE AND REQUSTED PT TO TAKE DEEP BREATHS 0950-DR LOZOYA AT BEDSIDE-PT AMBULATED WITH PHYSICAL THERAPY TO BED-USE OF WALKER-PACER WIRE D/C-MARIALUISA DRAIN DISCONTINUED CORDARONE IV D/C'D BY DR LOZOYA-ORDER FOR PICC LINE RECIEVED AND CONSULT SENT FOR SAME-PT REQUESTED BIPAP 1050-DR PETERS CALLED UNIT REGARDING CONSULT FOR DR MAY-AND NEED FOR PRBC-SAME CALLED [facility] ANDRY GALLOWAY RN-CONFIRMATION RECIEVED FOR UNIT OF PRBC -NO CONSULT FOR DR MAY AT THIS TIME-PT REQUESTED BIPAP OFF AT THIS TIME
--- NOTE | 2020-04-02 12:31 | NUR ---
;AB DRAWN FOR TYPE AND CROSSMATCH
--- NOTE | 2020-04-02 18:43 | NUR ---
1515-[facility] [id number] 1715-COMPLETED UNIT
[2020-04-03] VITALS (23 sets, daily range): BP systolic 101–154; BP diastolic 46–92
[2020-04-03 05:57] LABS: MCH 30.7 pg (26.0-34.0); MCHC 30.7 g/dL (31.0-37.0); MEAN PLATELET VOLUME 9.4 fL (7.4-10.4); WBC 6.5 10x3/uL (4.8-10.8)
[2020-04-03 06:09] LABS: HEMATOCRIT 28.7 % (36.0-48.0); HEMOGLOBIN 8.8 g/dL (12-16); RBC 2.87 10x6/uL (4.00-5.40)
[2020-04-03 06:22] LABS: ALBUMIN 2.3 g/dL (3.4-5.0); ANION GAP 11.4 mmol/L (8-16); BILIRUBIN - TOTAL 0.33 mg/dL (0.2-1.3); CALCIUM 7.7 mg/dL (8.5-10.1); CARBON DIOXIDE 27.3 mmol/L (21.0-32.0); CREATININE - SERUM 1.3 mg/dL (0.6-1.3); POTASSIUM - SERUM 4.7 mmol/L (3.5-5.1); PROTEIN - SERUM 5.7 g/dL (6.4-8.2)
--- NOTE | 2020-04-03 12:05 | NUR ---
[place] vascular nurse here, picc line placed right upper arm
--- NOTE | 2020-04-03 12:21 | NUR ---
Nutrition Follow-up: POD 8 CABG. On bipap at time of visit this AM. Chart reviewed. Diet: Regular PO intake: 100% x 3 yesterday Wt: 286# (04/03) Labs noted: Glu 113, Ca 7.7, Alb 2.3 Meds noted: Mylicon, Lasix, KDur, Protonix, Senokot, Colace -RD following.
--- NOTE | 2020-04-03 20:18 | MORECARE ---
CASE MANAGEMENT DISCHARGE SUMMARY PATIENT: STEPHON BANG UNIT: [id number] ADM DATE: 03/26/20 AGE: 79 : 42 SEX: F ROOM/BED: [facility] AUTHOR: HARVEY RAMIREZ PHYSICIAN: REFERRING PHYSICIAN: ELIZABETH LOZOYA MD DATE OF SERVICE: 04/03/20 Discharge Plan Patient Name: STEPHON BANG [facility] [facility] 1940 Planned Disposition: Inpatient Rehab Anticipated Discharge Date: Discharge Date: Expected LOS: Initial Reviewer: [email or web address] Initial Review Date: 03/26/2020 Generated: 04/03/20 9:18 pm DCPIA - Discharge Planning Initial Assessment Updated by [email or web address]: Lauren Vidal on 04/03/20 8:15 pm * Is the patient Alert and Oriented? Yes * How many steps to enter\exit or inside your home? RAMP * PCP YENNI DANIELLE * [facility]acy [facility] [place] * Preadmission Environment Home with Family * ADLs Partial Dependent * Partial ADLs (Assistance needed) Ambulation * Other Equipment BSC, CPAP, WALKER, W/C * List name and contact numbers for known caregivers / representatives who currently or will assist patient after discharge: RILEY BANG - SON - [phone] * Verbal permission to speak to the caregivers and representatives has been obtained from the patient. Yes * Community resources currently utilized Home Health * Please name any agencies selected above. [facility] [place] * Additional services required to return to the preadmission environment? No * Can the patient safely return to the preadmission environment? Yes * Has this patient been hospitalized within the prior 30 days at any hospital? No Patient Name: STEPHON BANG Page [id number] at 2018 All edits/amendments must be made on the electronic document DICTATION DATE: 04/03/202017 CHARGING CAR OPERATOR: SANDRA 04/03/20 2018 RPT#: [id number] DC DATE: STATUS: ADM IN [facility] [address] [place] [address] END OF REPORT
--- NOTE | 2020-04-03 20:25 | MORECARE ---
CASE MANAGEMENT DISCHARGE SUMMARY PATIENT: STEPHON BANG UNIT: [id number] ADM DATE: 03/26/20 AGE: 79 : 41 SEX: F ROOM/BED: [facility] AUTHOR: ASHLEY,DOC PHYSICIAN: REFERRING PHYSICIAN: ELIZABETH LOZOYA MD DATE OF SERVICE: 04/03/20 Discharge Plan Patient Name: STEPHON BANG Facility: [facility]:[place] : 1940 Planned Disposition: Inpatient Rehab Anticipated Discharge Date: Discharge Date: Expected LOS: Initial Reviewer: [email or web address] Initial Review Date: 03/26/2020 Generated: 04/03/20 9:24 pm Comments DCP- Discharge Planning Updated by [email or web address]: Lauren Vidal on 04/03/20 7:[address] LATE ENTRY 04-02-20 Patient Name: STEPHON BANG Admission Status: Elective Accout number: [id number] Admission Date: 03-26-2020 : 1940 Admission Diagnosis:ATHSCL HEART DISEASE OF [place] CORONARY ARTERY W/O ANG Attending: ELIZABETH LOZOYA Current LOS: 7 Anticipated DC Date: Planned Disposition: Inpatient Rehab Primary Insurance: MEDICARE A & B Discharge Planning Comments: CM met with patient to complete initial dc planning assessment. CM educated patient on the CM role and verbal consent given by patient to complete assessment. Patient lives at home with family. Patient is independent needs assist ambulating. At discharge patient plans to return home after rehab and feels this is a safe discharge. CM discussed availability of home health, rehab services, and medical equipment. Patient agrees to inpatient rehab and plans to resume [facility]. DAREN completed Patient will have family to transport home. Patient denied known discharge needs at this time. CM will continue to follow and will assist as needed with dc plans/needs. Diet Supervisor: Lauren Vidal DCPIA - Discharge Planning Initial Assessment Updated by [email or web address]: Lauren Vidal on 04/03/20 8:15 pm * Is the patient Alert and Oriented? Yes * How many steps to enter\exit or inside your home? RAMP * PCP YENNI DANIELLE * Pharmacy [facility] [place] * Preadmission Environment Home with Family * ADLs Partial Dependent * Partial ADLs (Assistance needed) Ambulation * Other Equipment BSC, CPAP, WALKER, W/C * List name and contact numbers for known caregivers / representatives who currently or will assist patient after discharge: RILEY BANG - SON - [phone] * Verbal permission to speak to the caregivers and representatives has been obtained from the patient. Yes * Community resources currently utilized Home Health * Please name any agencies selected above. [facility] [place] * Additional services required to return to the preadmission environment? No * Can the patient safely return to the preadmission environment? Yes * Has this patient been hospitalized within the prior 30 days at any hospital? No Coverage Notice Reviewer: [id number] Nicole Vidal Notice Issued Date-Time: 04/02/2020 17:30 Notice Type: Patient Choice Letter Notice Delivered To: Patient Relationship to Patient: Self Internet Database Specialist Name: Delivery Method: HAND - Hand Delivered Christina Days: Prior Verbal Notification: Recipient Understood Notice: Yes Recipient Signature: Yes Med Rec Note Co-signed by Attending: Coverage Notice Comment: INPT REHAB @ [facility] RESUME [facility] [place] Last DP export: 04/03/20 7:18 p Patient Name: STEPHON BANG Page [id number] at 202 All edits/amendments must be made on the electronic document DICTATION DATE: 04/03/202023 COAT FINISHER: SANDRA 04/03/202023 RPT#: [id number] DC DATE: STATUS: ADM IN [facility] [address] [place] [address] END OF REPORT
[2020-04-04] VITALS (24 sets, daily range): BP systolic 98–158; BP diastolic 47–89
[2020-04-04 04:24] LABS: HEMATOCRIT 32.5 % (36.0-48.0); HEMOGLOBIN 10.2 g/dL (12-16); MCH 31.5 pg (26.0-34.0); MCHC 31.4 g/dL (31.0-37.0); MCV 100.3 fL (80.0-100.0); MEAN PLATELET VOLUME 9.1 fL (7.4-10.4); RBC 3.24 10x6/uL (4.00-5.40); RDW 15.9 % (11.5-14.5)
[2020-04-04 04:39] LABS: ALBUMIN 2.6 g/dL (3.4-5.0); ANION GAP 12.8 mmol/L (8-16); BILIRUBIN - TOTAL 0.43 mg/dL (0.2-1.3); CALCIUM 7.9 mg/dL (8.5-10.1); CARBON DIOXIDE 28.8 mmol/L (21.0-32.0); CREATININE - SERUM 1.4 mg/dL (0.6-1.3); POTASSIUM - SERUM 4.6 mmol/L (3.5-5.1); PROTEIN - SERUM 6.4 g/dL (6.4-8.2)
[2020-04-04 04:59] LABS: WBC 8.8 10x3/uL (4.8-10.8)
--- NOTE | 2020-04-04 15:35 | NUR ---
DR. DOWD HERE IN TO SEE PATIENT.
[2020-04-05] VITALS (25 sets, daily range): BP systolic 97–159; BP diastolic 38–99
--- NOTE | 2020-04-05 08:06 | NUR ---
Picc line does not flush or draw back. Heidi SPICER with Dr. Mattson notified.
[2020-04-05 08:13] LABS: HEMATOCRIT 28.4 % (36.0-48.0); HEMOGLOBIN 8.8 g/dL (12-16); MCH 31.2 pg (26.0-34.0); MCV 100.7 fL (80.0-100.0); MEAN PLATELET VOLUME 9.1 fL (7.4-10.4); RBC 2.82 10x6/uL (4.00-5.40); RDW 15.6 % (11.5-14.5)
[2020-04-05 08:17] LABS: WBC 14.6 10x3/uL (4.8-10.8)
--- NOTE | 2020-04-05 08:22 | NUR ---
Call received from Jorge shipley's son. Passcode verified. Update given.
[2020-04-05 08:29] LABS: ALBUMIN 2.3 g/dL (3.4-5.0); ANION GAP 9.8 mmol/L (8-16); BILIRUBIN - TOTAL 0.56 mg/dL (0.2-1.3); CALCIUM 7.8 mg/dL (8.5-10.1); CARBON DIOXIDE 29.9 mmol/L (21.0-32.0); CREATININE - SERUM 1.3 mg/dL (0.6-1.3); MAGNESIUM - SERUM 1.7 mg/dL (1.8-2.4); PHOSPHOROUS 3.3 mg/dL (2.5-4.9); POTASSIUM - SERUM 4.7 mmol/L (3.5-5.1); PROTEIN - SERUM 5.8 g/dL (6.4-8.2)
--- NOTE | 2020-04-05 10:01 | NUR ---
Pt to chair with physical therapy. Catheter fell out when pt stood up. Pt states that she felt catheter pop out last night when she had bowel movement. Will notify physician and evaluate reinsertion of wasserman catheter.
--- NOTE | 2020-04-05 10:55 | NUR ---
20G PIV inserted to JATIN.
--- NOTE | 2020-04-05 13:12 | NUR ---
OT NOTE: PT REPORTING THAT SHE WAS UP ALL NIGHT HAVING FREQUENT BMs..REPORTED THAT SHE WAS VERY TIRED AND UNSURE OF WHAT SHE WOULD BE ABLE TO DO. MOD ASSIST TO GET TO EOB.. SIT TO STAND WITH MOD ASSIST.. WHILE STANDING, HER CATH CAME OUT.. PT STATED THAT SHE THINKS IT CAME OUT LAST NIGHT WHILE HAVING BM. PT ABLE TO STAND FOR SEVERAL MIN WHILE TOILET HYGIENE WAS PERFORMED.. AMB TO CHAIR WITH MIN ASSIST.. VERY SOB. SET UP FOR GROOMING TASKS. POSITIONED FOR COMFORT IN CHAIR. ERINN DURHAM, OTR/L [phone]
--- NOTE | 2020-04-05 13:15 | NUR ---
Ambulated back to bed with walker. Large amount of urine noted at this time. Pericare provided. Pulled up and repositioned for comfort. Call light in reach. Will continue to monitor.
--- NOTE | 2020-04-05 14:03 | NUR ---
Physical therapy attempted to walk patient this afternoon. Got her up to side of bed. Pt stated that she was light headed and felt very weak. HR 101, O2 sat 96% on 6L high flow nc, 131/75. Placed back on bed. Will continue to monitor.
--- NOTE | 2020-04-05 15:53 | NUR ---
Nutrition Follow-up: Diet: Regular PO intake: ~75% average x last 6 meals. Reports that her appetite is "pretty good." States that she is ordering Ensure. Last BM: 04/05/20 x 2. Wt: 284# (04/05/20); Admit Wt: 268# (03/26/20) Meds and labs reviewed. Recommend continue current diet. RD following.
--- NOTE | 2020-04-05 16:46 | NUR ---
Rehab Note- COntinue to follow at this time for inpatient acute rehab stay when medically stable, continues to require increased amounts of oxygen at this time. Thank you for this referral! Bri Mueller RN Clinical Liaison, [facility] Rehab
--- NOTE | 2020-04-05 17:33 | NUR ---
OT NOTE: PT COMPLETED SUPINE TO SIT WITH MAX A .PT COMPLETED EOB SITTING WITH MIN A. PT COMPLETED BUE AROM WITH FUNCTIONAL TASKS. PT STATED SHE FELT DIZZY. REPORTED TO NURSING. [phone] THANK YOU,CIELO HEWITT
--- NOTE | 2020-04-05 19:20 | NUR ---
REPORT REC'D AND CARE ASSUMED, REC'D PT AWAKE, ALERT, AND ORIENTED X 4, RIGHT UPPER ARM PIV SALINE LOCKED, MIDSTERNAL INCISION OPEN TO AIR, WELL APPROXIMATED, SUBSTERNAL DRSG CDI, ABD DISTENDED, BS ACTIVE, GENERALIZED EDEMA, PT REPORTS SORENESS, STATES " SHE JUST GAVE ME A PAIN PILL", RIGHT LEG HARVEST SITES OPEN TO AIR AND WELL APPROXIMATED, PPP, SR UP X 2, CALL LIGHT IN REACH.
--- NOTE | 2020-04-05 20:00 | NUR ---
PT INCONTINENT, PARTIAL BATH AND LINEN CHANGE PROVIDED, NEW EXTERNAL CATHETER APPLIED AND REPOSITIONED, WILL MONITOR FOR CHANGES.
[2020-04-06] VITALS (27 sets, daily range): BP systolic 88–119; BP diastolic 34–72
--- NOTE | 2020-04-06 06:15 | NUR ---
BATH AND LINEN CHANGE PROVIDED, PT ASSISTED X 2 UP TO CHAIR, CALL LIGHT AND DHEERAJ IN REACH, PT DENIES NEEDS.
--- NOTE | 2020-04-06 07:00 | NUR ---
UP IN CHAIR AT BEDSIDE. SKIN WARM AND DRY. DRESSINGS DRY AND INTACT. INCENTIVE SPIROMETRY TO 500 ML. PATIENT UP TO BSC. SMALL SOFT BROWN BM. VOIDED SMALL AMOUNT
[2020-04-06 09:24] LABS: BASOPHILS 0.1 % (0-2); EOSINOPHILS 0.8 % (0-7); HEMOGLOBIN 9.8 g/dL (12-16); IMMATURE GRANULOCYTES 0.7 % (0-5); LYMPHOCYTES 3.7 % (15-50); MCH 31.9 pg (26.0-34.0); MCHC 31.6 g/dL (31.0-37.0); MEAN PLATELET VOLUME 9.1 fL (7.4-10.4); MONOCYTES 7.2 % (2-11); NEUTROPHILS 87.5 % (40-80); RBC 3.07 10x6/uL (4.00-5.40); RDW 15.5 % (11.5-14.5)
[2020-04-06 09:26] LABS: PLATELET COUNT 458 10x3/uL (130-400); WBC 19.5 10x3/uL (4.8-10.8)
[2020-04-06 09:48] LABS: ALBUMIN 2.7 g/dL (3.4-5.0); BILIRUBIN - TOTAL 0.59 mg/dL (0.2-1.3); CALCIUM 8.3 mg/dL (8.5-10.1); CARBON DIOXIDE 29.3 mmol/L (21.0-32.0); CREATININE - SERUM 1.5 mg/dL (0.6-1.3); POTASSIUM - SERUM 5.3 mmol/L (3.5-5.1); PROTEIN - SERUM 6.1 g/dL (6.4-8.2)
--- NOTE | 2020-04-06 14:13 | NUR ---
R UPPER ARM PICC LINE D/C PER [id number] OBTAINED-CATHETER LINE INTACT
--- NOTE | 2020-04-06 15:14 | NUR ---
IV STARTED RIGHT WRIST 22 G FLUSHES WELL, GOOD BLOOD RETURN. PICC LINE REMOVED PER GRACE GUERRERO. 45 CM REMOVED. PATIENT TOLERATED FAIR. IV RIGHT SHOULD SWOLLEN AND REMOVED
[2020-04-07] VITALS (29 sets, daily range): BP systolic 87–137; BP diastolic 43–73
[2020-04-07 08:30] LABS: BASOPHILS 0.1 % (0-2); EOSINOPHILS 2.6 % (0-7); HEMATOCRIT 28.6 % (36.0-48.0); HEMOGLOBIN 8.8 g/dL (12-16); IMMATURE GRANULOCYTES 0.6 % (0-5); LYMPHOCYTES 6.7 % (15-50); MCH 31.1 pg (26.0-34.0); MCHC 30.8 g/dL (31.0-37.0); MCV 101.1 fL (80.0-100.0); MEAN PLATELET VOLUME 9.2 fL (7.4-10.4); MONOCYTES 3.9 % (2-11); NEUTROPHILS 86.1 % (40-80); PLATELET COUNT 413 10x3/uL (130-400); RBC 2.83 10x6/uL (4.00-5.40); RDW 15.5 % (11.5-14.5)
[2020-04-07 08:39] LABS: WBC 11.9 10x3/uL (4.8-10.8)
[2020-04-07 09:34] LABS: ALBUMIN 2.5 g/dL (3.4-5.0); BILIRUBIN - TOTAL 0.35 mg/dL (0.2-1.3); CALCIUM 8.2 mg/dL (8.5-10.1); CARBON DIOXIDE 27.6 mmol/L (21.0-32.0); CREATININE - SERUM 1.5 mg/dL (0.6-1.3); POTASSIUM - SERUM 4.6 mmol/L (3.5-5.1); PROTEIN - SERUM 5.7 g/dL (6.4-8.2)
--- NOTE | 2020-04-07 10:34 | NUR ---
1000-PT AMBULATED WITH PHYSICAL THERAPY-REQUIRED WALKER-PLACED PT ON BIPAP AT PT REQUEST-POOR PARTICIPANT WITH SELF CARE 1030-PLACED BACK ON OXIMYZER AT 4 L
--- NOTE | 2020-04-07 13:21 | NUR ---
PT UP IN CHAIR-DR MAY AT BEDSIDE-PT C/O ACID INDIGESTION FOLLOWING LUNCH MEAL-80% CONSUMED-CALLED PHARMACY TO LOAD TUMS TABLET
--- NOTE | 2020-04-07 14:42 | NUR ---
PT AMBULATED WITH PHYSICAL THERPY-NOTED IMPROVEMENT AND DISTANCE-ASSISTED TO BED BY PHYSICAL THERAPY-PLACED ON BIPAP AT PT REQUEST
--- NOTE | 2020-04-07 23:05 | NUR ---
PT INCONTINENT OF URINE. PERICARE PROVIDED WITH PAD CHANGE.
[2020-04-08] VITALS (24 sets, daily range): BP systolic 93–149; BP diastolic 41–83
[2020-04-08 04:37] LABS: BASOPHILS 0.4 % (0-2); EOSINOPHILS 3.8 % (0-7); HEMATOCRIT 27.4 % (36.0-48.0); HEMOGLOBIN 8.3 g/dL (12-16); IMMATURE GRANULOCYTES 0.8 % (0-5); LYMPHOCYTES 12.5 % (15-50); MCH 30.5 pg (26.0-34.0); MCHC 30.3 g/dL (31.0-37.0); MCV 100.7 fL (80.0-100.0); MEAN PLATELET VOLUME 9.2 fL (7.4-10.4); MONOCYTES 8.8 % (2-11); NEUTROPHILS 73.7 % (40-80); PLATELET COUNT 435 10x3/uL (130-400); RBC 2.72 10x6/uL (4.00-5.40); RDW 15.4 % (11.5-14.5)
[2020-04-08 04:53] LABS: WBC 8.5 10x3/uL (4.8-10.8)
[2020-04-08 05:08] LABS: ALBUMIN 2.3 g/dL (3.4-5.0); ANION GAP 8.2 mmol/L (8-16); BILIRUBIN - TOTAL 0.26 mg/dL (0.2-1.3); CALCIUM 8.6 mg/dL (8.5-10.1); CARBON DIOXIDE 31.7 mmol/L (21.0-32.0); CREATININE - SERUM 1.5 mg/dL (0.6-1.3); MAGNESIUM - SERUM 1.8 mg/dL (1.8-2.4); PHOSPHOROUS 5.3 mg/dL (2.5-4.9); POTASSIUM - SERUM 4.9 mmol/L (3.5-5.1); PROTEIN - SERUM 5.9 g/dL (6.4-8.2)
--- NOTE | 2020-04-08 06:30 | NUR ---
PT INCONTINENT OF BLADDER, UNABLE TO COLLECT URINE. NO BM NOTED. CHG BATH GIVEN. PT UP TO CHAIR. WILL CONTINUE TO OBSERVE.
--- NOTE | 2020-04-08 12:55 | NUR ---
Nutrition Follow-up: Pt reports good/improved appetite. Denies N/V/C/D. Drinking Ensure occasionally. Diet: Regular Wt: 284# (04/08) Last BM: 04/08 Labs noted: Na 134, PO4 5.3, Alb 2.3 Meds noted: Tums, Miralax, Protonix, Florajen, Lasix, KDur -Encourage PO intake and honor food preferences. -If PO4 remains elevated, may consider renal diet. -Monitor wt. -RD following.
--- NOTE | 2020-04-08 17:46 | NUR ---
PT COMPLAIN OF RIGHT HAND IV HURTING. IV DC'D WITH THE CATHETER TIP INTACT. IV STARTED IN THE RIGHT UPPER CHEST. PATENT. DRESSING C/D/I.
--- NOTE | 2020-04-08 23:39 | NUR ---
PT INCONTINENT OF BLADDER WITH BATH GIVEN. PT WAS SLEEPING. BOTTOM SHEET SATURATED. PT REMINDED TO ASK FOR ASSISTANCE WHEN SHE NEEDS TO USE BATHROOM. WILL CONTINUE TO OBSERVE.
[2020-04-09] VITALS (23 sets, daily range): BP systolic 44–155; BP diastolic 23–99
[2020-04-09 05:28] LABS: BASOPHILS 0.4 % (0-2); EOSINOPHILS 3.9 % (0-7); HEMATOCRIT 29.8 % (36.0-48.0); HEMOGLOBIN 9.1 g/dL (12-16); LYMPHOCYTES 13.2 % (15-50); MCH 30.8 pg (26.0-34.0); MCHC 30.5 g/dL (31.0-37.0); MEAN PLATELET VOLUME 9.1 fL (7.4-10.4); MONOCYTES 10.2 % (2-11); NEUTROPHILS 70.3 % (40-80); PLATELET COUNT 475 10x3/uL (130-400); RBC 2.95 10x6/uL (4.00-5.40); RDW 15.2 % (11.5-14.5); WBC 7.4 10x3/uL (4.8-10.8)
--- NOTE | 2020-04-09 05:58 | NUR ---
CHG BATH GIVEN. PT UP TO CHAIR. TOLERATED WELL.
[2020-04-09 06:07] LABS: ALBUMIN 2.5 g/dL (3.4-5.0); ANION GAP 10.4 mmol/L (8-16); BILIRUBIN - TOTAL 0.18 mg/dL (0.2-1.3); CALCIUM 9.6 mg/dL (8.5-10.1); CARBON DIOXIDE 33.7 mmol/L (21.0-32.0); CREATININE - SERUM 1.8 mg/dL (0.6-1.3); POTASSIUM - SERUM 5.1 mmol/L (3.5-5.1); PROTEIN - SERUM 6.2 g/dL (6.4-8.2)
--- NOTE | 2020-04-09 09:59 | NUR ---
PT AMBULATING WITH PHSICAL THEARPY. SEE PT NOTES.
--- NOTE | 2020-04-09 15:49 | NUR ---
OT NOTE: PT COMPLETED SIT TO STAND WITH MIN A. PT COMPLETED CHAIR TO BSC TSF WITH CGA. PT COMPLETED TOILETING TASKS WITH MOD A FOR CLOTHING MANAGEMENT. PT REQUIRED TOTAL A WITH TOILET HYGIENE. [id number] THANK YOU,CIELO HEWITT
[2020-04-10] VITALS (22 sets, daily range): BP systolic 114–172; BP diastolic 49–102
[2020-04-10 05:35] LABS: BASOPHILS 0.5 % (0-2); EOSINOPHILS 3.5 % (0-7); HEMATOCRIT 33.3 % (36.0-48.0); HEMOGLOBIN 10.4 g/dL (12-16); IMMATURE GRANULOCYTES 3.5 % (0-5); LYMPHOCYTES 14.5 % (15-50); MCH 31.9 pg (26.0-34.0); MCHC 31.2 g/dL (31.0-37.0); MCV 102.1 fL (80.0-100.0); MEAN PLATELET VOLUME 9.6 fL (7.4-10.4); MONOCYTES 10.7 % (2-11); NEUTROPHILS 67.3 % (40-80); RBC 3.26 10x6/uL (4.00-5.40); RDW 15.3 % (11.5-14.5); WBC 9.2 10x3/uL (4.8-10.8)
[2020-04-10 05:37] LABS: ANION GAP 11.1 mmol/L (8-16); BILIRUBIN - TOTAL 0.23 mg/dL (0.2-1.3); CALCIUM 9.9 mg/dL (8.5-10.1); CARBON DIOXIDE 35.1 mmol/L (21.0-32.0); CREATININE - SERUM 1.5 mg/dL (0.6-1.3); PROTEIN - SERUM 6.5 g/dL (6.4-8.2)
[2020-04-10 05:41] LABS: PLATELET COUNT 588 10x3/uL (130-400)
[2020-04-10 06:37] LABS: POTASSIUM - SERUM 6.2 mmol/L (3.5-5.1)
--- NOTE | 2020-04-10 07:15 | NUR ---
CHG BATH GIVEN AND LINENS CHANGED. PT UP IN CHAIR. DR. LOZOYA MADE AWARE OF POTASSIUM OF 6.1, ORDER FOR RECHECK RECEIVED. ORDER PLACE INTO [facility].
--- NOTE | 2020-04-10 09:10 | NUR ---
K-CUR 20 MEQ HELD DUE TO SERUM K OF 6.2. AWAITING REDRAW FOR CONFIRMATION.
--- NOTE | 2020-04-10 12:57 | NUR ---
Nutrition Follow-up: Pt with therapy at time of visit this AM. Chart reviewed. Noted plans for possible d/c to rehab soon. Diet: Regular PO intake: 50-100% Wt: 261# (04/10) Labs noted: Na 135, K+ 6.2 -> 5.6, Alb 3.0 Meds noted: Florajen, Protonix, Colace, KDur (held this AM 2/2 elev K+) -May consider renal diet if K+ remains elevated. -Encourage PO intake and honor food preferences within diet restrictions. -Monitor wt. -RD following.
--- NOTE | 2020-04-10 15:36 | NUR ---
OT NOTE: PT COMPLETED SIT TO STAND WITH CGA. PT COMPLETED CHAIR TO BSC TSF WITH CGA. PT COMPLETED TOILETING TASKS WITH MIN A FOR GARMENT MANAGEMENT AND MAX A FOR HYGIENE. [phone] THANK YOU,CIELO HEWITT
--- NOTE | 2020-04-10 19:56 | MORECARE ---
CASE MANAGEMENT DISCHARGE SUMMARY PATIENT: STEPHON BANG UNIT: [id number] ADM DATE: 03/26/20 AGE: 79 : 41 SEX: F ROOM/BED: [facility] AUTHOR: ASHLEY,DOC PHYSICIAN: REFERRING PHYSICIAN: ELIZABETH LOZOYA MD DATE OF SERVICE: 04/10/20 Discharge Plan Patient Name: STEPHON BANG Facility: [facility]:[place] : 1940 Planned Disposition: Inpatient Rehab Anticipated Discharge Date: Discharge Date: Expected LOS: Initial Reviewer: [email or web address] Initial Review Date: 03/26/2020 Generated: 04/10/20 8:55 pm DCP- Discharge Planning Updated by [email or web address]: Lauren Vidal on 04/10/20 6:[address] PATIENT TO GO TO INPATIENT REHAB @ [facility] ON WEDNESDAY 04/11 PER MD ORDERS. D/C IMM SIGNED. CM WILL CONTINUE TO FOLLOW AND ASSIST NEEDED DCP- Discharge Planning Updated by [id number]: Lauren Vidal on 04/03/20 7:[address] LATE ENTRY 04-02-20 Patient Name: STEPHON BANG Admission Status: Elective Accout number: [id number] Admission Date: 03-26-2020 : 1940 Admission Diagnosis:ATHSCL HEART DISEASE OF [place] CORONARY ARTERY W/O ANG Attending: ELIZABETH LOZOYA Current LOS: 7 Anticipated DC Date: Planned Disposition: Inpatient Rehab Primary Insurance: MEDICARE A & B Discharge Planning Comments: CM met with patient to complete initial dc planning assessment. CM educated patient on the CM role and verbal consent given by patient to complete assessment. Patient lives at home with family. Patient is independent needs assist ambulating. At discharge patient plans to return home after rehab and feels this is a safe discharge. CM discussed availability of home health, rehab services, and medical equipment. Patient agrees to inpatient rehab and plans to resume [facility]. DAREN completed Patient will have family to transport home. Patient denied known discharge needs at this time. CM will continue to follow and will assist as needed with dc plans/needs. Climate Change Risk Assessor: Lauren Vidal DCPIA - Discharge Planning Initial Assessment Updated by [id number]: Lauren Vidal on 04/03/20 8:15 pm * Is the patient Alert and Oriented? Yes * How many steps to enter\exit or inside your home? RAMP * PCP YENNI DANIELLE * [facility]acy [facility] [place] * Preadmission Environment Home with Family * ADLs Partial Dependent * Partial ADLs (Assistance needed) Ambulation * Other Equipment BSC, CPAP, WALKER, W/C * List name and contact numbers for known caregivers / representatives who currently or will assist patient after discharge: RILEY BANG - SON - [phone] * Verbal permission to speak to the caregivers and representatives has been obtained from the patient. Yes * Community resources currently utilized Home Health * Please name any agencies selected above. [facility] [place] * Additional services required to return to the preadmission environment? No * Can the patient safely return to the preadmission environment? Yes * Has this patient been hospitalized within the prior 30 days at any hospital? No Coverage Notice Reviewer: [id number] Nicole Vidal Notice Issued Date-Time: 04/02/2020 17:30 Notice Type: Patient Choice Letter Notice Delivered To: Patient Relationship to Patient: Self Soaker Soda Worker Name: Delivery Method: HAND - Hand Delivered Christina Days: Prior Verbal Notification: Recipient Understood Notice: Yes Recipient Signature: Yes Med Rec Note Co-signed by Attending: Coverage Notice Comment: INPT REHAB @ [facility] RESUME [facility] [place] Reviewer: [id number] Nicole Vidal Notice Issued Date-Time: 04/10/2020 18:00 Notice Type: IM Discharge Notice Notice Delivered To: Patient Relationship to Patient: Soaker Soda Worker Name: Delivery Method: HAND - Hand Delivered Christina Days: Prior Verbal Notification: Recipient Understood Notice: Yes Recipient Signature: Yes Med Rec Note Co-signed by Attending: Coverage Notice Comment: Last DP export: 04/03/20 7:25 p Patient Name: STEPHON BANG Page [id number] at 6 All edits/amendments must be made on the electronic document DICTATION DATE: 04/10/201954 MANAGER OF CARE: SANDRA 04/10/201954 RPT#: [id number] DC DATE: STATUS: ADM IN [facility] [address] [place] [address] END OF REPORT
[2020-04-11] VITALS (7 sets, daily range): BP systolic 129–150; BP diastolic 66–80; Ht 160 cm; Wt 119.5 kg
--- NOTE | 2020-04-11 07:35 | NUR ---
O2 decreased to 4l/min high flow due to SpO2 of 97%. Will continue to monitor. Shift assessment complete.
[2020-04-11 08:43] LABS: BASOPHILS 0.4 % (0-2); EOSINOPHILS 3.3 % (0-7); HEMATOCRIT 32.4 % (36.0-48.0); HEMOGLOBIN 9.9 g/dL (12-16); IMMATURE GRANULOCYTES 4.2 % (0-5); LYMPHOCYTES 9.9 % (15-50); MCHC 30.6 g/dL (31.0-37.0); MCV 101.6 fL (80.0-100.0); MEAN PLATELET VOLUME 8.9 fL (7.4-10.4); MONOCYTES 6.7 % (2-11); NEUTROPHILS 75.5 % (40-80); PLATELET COUNT 471 10x3/uL (130-400); RBC 3.19 10x6/uL (4.00-5.40); RDW 15.2 % (11.5-14.5); WBC 8.3 10x3/uL (4.8-10.8)
[2020-04-11 08:49] LABS: CALCIUM 9.7 mg/dL (8.5-10.1); CREATININE - SERUM 1.6 mg/dL (0.6-1.3)
--- NOTE | 2020-04-11 14:24 | NUR ---
OT NOTE: SIMPLE GROOMING TASKS WITH SET UP; MAX ASSIST TO BOOM/DOFF SHOES; SIT TO STAND WITH WALKER AND MIN ASSIST; IN ROOM AMB AND AMB INTO HALLWAY APPROX 80 FT WITH GAIT BELT, 02 AT 4L, RW, AND MIN ASSIST. PT VERY FATIGUED WHEN SHE RETURNED TO ROOM. QUESTIONS WHEN SHE WILL GET TO GO TO REHAB. ERINN DURHAM, OTR/L [phone]
--- NOTE | 2020-04-11 14:44 | NUR ---
OT NOTE: PT COMPLETED SIT TO STAND WITH CGA. PT COMPLETED ADL MOB WITH RW REQUIRED CGA. PT COMPLETED TOIELT HYGIENE WITH MELLISSA Calvo. PT COMPLETED BOOM;DOFF BRIEFS WITH MELLISSA Calvo. PT IS IMPROVING WITH FUNCTIONAL TASKS. PT IS EASILY FATIGUED. [phone] THANK YOU,CIELO HEWITT
[2020-04-11] MEDS ORDERED: AMIODARONE HCL200 MG PO (18:03)
[2020-04-11] MEDS ORDERED: METAMUCIL PACKE1 PKT PO (20:43)
--- NOTE | 2020-04-12 09:07 | MORECARE ---
CASE MANAGEMENT DISCHARGE SUMMARY PATIENT: STEPHON BANG UNIT: [id number] ADM DATE: 03/26/20 AGE: 79 : 41 SEX: F ROOM/BED: [facility] AUTHOR: ASHLEY,DOC PHYSICIAN: REFERRING PHYSICIAN: ELIZABETH LOZOYA MD DATE OF SERVICE: 04/12/20 Discharge Plan Patient Name: STEPHON BANG Facility: [facility]:[place] : 1940 Planned Disposition: Inpatient Rehab Anticipated Discharge Date: Discharge Date: 04/11/2020 Expected LOS: Initial Reviewer: [email or web address] Initial Review Date: 03/26/2020 Generated: 04/12/20 10:06 am DCP- Discharge Planning Updated by [id number]: Lauren Vidal on 04/10/20 6:[address] PATIENT TO GO TO INPATIENT REHAB @ [facility] ON WEDNESDAY 04/11 PER MD ORDERS. D/C IMM SIGNED. CM WILL CONTINUE TO FOLLOW AND ASSIST NEEDED DCP- Discharge Planning Updated by [email or web address]: Lauren Vidal on 04/03/20 7:[address] LATE ENTRY 04-02-20 Patient Name: STEPHON BANG Admission Status: Elective Accout number: [id number] Admission Date: 03-26-2020 : 1940 Admission Diagnosis:ATHSCL HEART DISEASE OF [place] CORONARY ARTERY W/O ANG Attending: ELIZABETH LOZOYA Current LOS: 7 Anticipated DC Date: Planned Disposition: Inpatient Rehab Primary Insurance: MEDICARE A & B Discharge Planning Comments: CM met with patient to complete initial dc planning assessment. CM educated patient on the CM role and verbal consent given by patient to complete assessment. Patient lives at home with family. Patient is independent needs assist ambulating. At discharge patient plans to return home after rehab and feels this is a safe discharge. CM discussed availability of home health, rehab services, and medical equipment. Patient agrees to inpatient rehab and plans to resume [facility]. DAREN completed Patient will have family to transport home. Patient denied known discharge needs at this time. CM will continue to follow and will assist as needed with dc plans/needs. Regional Ehs Manager: Lauren Vidal DCPIA - Discharge Planning Initial Assessment Updated by [email or web address]: Lauren Vidal on 04/03/20 8:15 pm * Is the patient Alert and Oriented? Yes * How many steps to enter\exit or inside your home? RAMP * PCP YENNI DANIELLE * [facility]acy [facility] [place] * Preadmission Environment Home with Family * ADLs Partial Dependent * Partial ADLs (Assistance needed) Ambulation * Other Equipment BSC, CPAP, WALKER, W/C * List name and contact numbers for known caregivers / representatives who currently or will assist patient after discharge: RILEY BANG - SON - [phone] * Verbal permission to speak to the caregivers and representatives has been obtained from the patient. Yes * Community resources currently utilized Home Health * Please name any agencies selected above. [facility] [place] * Additional services required to return to the preadmission environment? No * Can the patient safely return to the preadmission environment? Yes * Has this patient been hospitalized within the prior 30 days at any hospital? No Coverage Notice Reviewer: [id number] Nicole Vidal Notice Issued Date-Time: 04/02/2020 17:30 Notice Type: Patient Choice Letter Notice Delivered To: Patient Relationship to Patient: Self Automotive Lot Attendant Name: Delivery Method: HAND - Hand Delivered Christina Days: Prior Verbal Notification: Recipient Understood Notice: Yes Recipient Signature: Yes Med Rec Note Co-signed by Attending: Coverage Notice Comment: INPT REHAB @ [facility] RESUME [facility] [place] Reviewer: [id number] Nicole Vidal Notice Issued Date-Time: 04/10/2020 18:00 Notice Type: IM Discharge Notice Notice Delivered To: Patient Relationship to Patient: Automotive Lot Attendant Name: Delivery Method: HAND - Hand Delivered Christina Days: Prior Verbal Notification: Recipient Understood Notice: Yes Recipient Signature: Yes Med Rec Note Co-signed by Attending: Coverage Notice Comment: Last DP export: 04/10/20 6:56 p Patient Name: STEPHON BANG Page 75069 at 0907 All edits/amendments must be made on the electronic document DICTATION DATE: 04/12/20905 WAX MOLDER: SANDRA 04/12/20905 RPT#: [id number] DC DATE:04/11/20 STATUS: DIS IN [place] [address] [place] [address] END OF REPORT
--- NOTE | 2020-04-15 09:08 | OP ---
PATIENT NAME: STEPHON BANG MEDICAL RECORD: [id number] :41 LOCATION:[facility] ADMISSION DATE:03/26/20 SURGEON: LETITIA BIRMINGHAM MD DATE OF OPERATION: 03/29/2020 PROCEDURE: Cardioversion. INDICATIONS: Atrial fibrillation, rapid ventricular response, hypotension, postop CABG. DESCRIPTION OF PROCEDURE: After a mild sedation with 2 mg IV Versed due to underlying pulmonary issues. The patient was successfully cardioverted with 200 joules from atrial fibrillation to normal sinus rhythm; however, after approximately 5 minutes, the patient reverted back to atrial fibrillation. At this point in time, I would increase Cordarone including IV tissue loading. Hopefully, this will chemically restore normal sinus rhythm. If not after adequate loading could consider repeat cardioversion in the a.m. NTS:[id number] Voice Confirmation ID: [id number] DOCUMENT ID: [id number] LETITIA BIRMINGHAM MD at 0908 CC: [id number] DICTATION DATE: 03/29/20 1126 STAYING MACHINE OPERATOR: 03/29/202024 DIS IN 04/11/[address] [facility] [address] [id number]
--- NOTE | 2020-04-15 09:08 | OP ---
PATIENT NAME: STEPHON BANG MEDICAL RECORD: [id number] :41 LOCATION:[facility] ADMISSION DATE:03/26/20 SURGEON: LETITIA BIRMINGHAM MD DATE OF OPERATION: 03/30/2020 PROCEDURE: Cardioversion. DESCRIPTION OF PROCEDURE: After general sedation with IV Versed, initial shock at 200 joules was unsuccessful in restoring normal sinus rhythm. Second shock at 360 joules was successful in restoring atrial fibrillation with RVR, normal sinus rhythm, rates in the 110s. During the procedure, the patient was monitored continuously with pulse oximetry and noninvasive blood pressure monitoring. TRANSINT:[id number] Voice Confirmation ID: [id number] DOCUMENT ID: [id number] LETITIA BIRMINGHAM MD at 0908 CC: [id number] DICTATION DATE: 03/30/20 0944 SUPERVISOR TITLE: 03/30/20 1232 DIS IN 04/11/20 [id number] [place] [address]
== END 2020-04-11 20:18 | DRG 235 ==
LOC: D.SDCHOLD 03-26 05:59 → D.CVICU 03-26 05:59 → D.SDCHOLD 03-26 07:30 → D.CVICU 03-26 13:37
PROVIDERS: Internal Medicine Cardiovascular Disease; Internal Medicine Pulmonary Disease; ADMIT Thoracic Surgery (Cardiothoracic Vascular Surgery); ATTEND Thoracic Surgery (Cardiothoracic Vascular Surgery)
PROC: 021109W Bypass Coronary Artery, Two Arteries from Aorta with Autologous Venous Tissue, Open Approach (ICD-10-PCS; 2020-03-26)
PROC: 06BP4ZZ Excision of Right Saphenous Vein, Percutaneous Endoscopic Approach (ICD-10-PCS; 2020-03-26)
PROC: 5A1221Z Performance of Cardiac Output, Continuous (ICD-10-PCS; 2020-03-26)
PROC: B245ZZ4 Ultrasonography of Left Heart, Transesophageal (ICD-10-PCS; 2020-03-26)
PROC: 02100Z9 Bypass Coronary Artery, One Artery from Left Internal Mammary, Open Approach (ICD-10-PCS; principal; 2020-03-26 07:30)
PROC: 5A09357 Assistance with Respiratory Ventilation, Less than 24 Consecutive Hours, Continuous Positive Airway Pressure (ICD-10-PCS; 2020-03-27)
PROC: 05HY33Z Insertion of Infusion Device into Upper Vein, Percutaneous Approach (ICD-10-PCS; 2020-04-03)
DX: I25.7 Atherosclerosis of coronary artery bypass graft(s) and coronary artery of transplanted heart with angina pectoris (principal); I50.31 Acute diastolic (congestive) heart failure; J96.01 Acute respiratory failure with hypoxia; J96.02 Acute respiratory failure with hypercapnia; Z68.42 Body mass index [BMI] 45.0-49.9, adult; I48.20 Chronic atrial fibrillation, unspecified; J90 Pleural effusion, not elsewhere classified; K56.7 Ileus, unspecified; J44.9 Chronic obstructive pulmonary disease, unspecified; E66.01 Morbid (severe) obesity due to excess calories; Z87.891 Personal history of nicotine dependence; G47.33 Obstructive sleep apnea (adult) (pediatric); K59.00 Constipation, unspecified; D53.9 Nutritional anemia, unspecified; E88.09 Other disorders of plasma-protein metabolism, not elsewhere classified; I11.0 Hypertensive heart disease with heart failure; R53.81 Other malaise; E11.22 Type 2 diabetes mellitus with diabetic chronic kidney disease; N18.9 Chronic kidney disease, unspecified; D72.829 Elevated white blood cell count, unspecified; E78.49 Other hyperlipidemia; D50.0 Iron deficiency anemia secondary to blood loss (chronic)

== ENCOUNTER 2020-04-11 16:58 | Inpatient (IN) | payer MEDICARE, OTHER ==
[~2020-04-11] VITALS: Ht 157.5 cm; Wt 118.8 kg
[~2020-04-11 16:58] MED LIST changes: +BAYER CHEWABLE81 MG PO; +CALCIUM CITRATE PO; +CYMBALTA60 MG PO; +KLONOPIN0.5 MG PO; +METAMUCIL PACKE1 PKT PO; +MUCINEX DM ER1 EAC1 PO; +TUMS X-STR300 MG PO
[2020-04-11] MEDS ORDERED: AMIODARONE HCL200 MG PO (18:03)
[2020-04-11] MEDS ORDERED: METAMUCIL PACKE1 PKT PO (20:43)
[2020-04-11 22:40] VITALS: BP 171/88; BMI 48.1
--- NOTE | 2020-04-11 23:11 | NUR ---
RECIEVD TO ROOM 1115. CAME TO FLOOR IN W/C. REQUESTED TO USE BEDSIDE COMMODE. ABLE TO STAND AND PIVIT ONTO BEDSIDE COMMODE WITH WALKER. ALERT AND ORIETNED X4. IV TO RT SHOULDER SL. WEARS BRIEFS. O2@ 5 LITERS PER N/C. DSG TO RT LOWER EXTREMETY.DEIES ANY OTHER NEEDS.
[2020-04-12 07:50] VITALS: BP 143/59
--- NOTE | 2020-04-12 08:00 | NUR ---
LAYING IN BED. OXYGEN 5LNC IN PLACE. C/O FATIGUE WHEN NURSE ASKED HER TO SCOOT UP IN BED FOR BREAKFAST. SHE STATED "I CAN'T DO IT, SOMEONE USUALLY DOES IT FOR ME". SHE IS ON STERNAL PRECAUTIONS DUE TO RECENT CABG SURGERY. NURSE SHOWED HER HOW TO USE SHOULDERS TO "CRAWL" UP IN BED WHEN NEEDED. HER ABD IS LARGE AND FIRM. SHE C/O GAS PAIN AND WANTED A "PAIN PILL AND SOME TUMS" FOR HER GAS. CALL LIGHT IN REACH
[2020-04-12 09:59] LABS: ANION GAP 10.8 mmol/L (8-16); CALCIUM 9.1 mg/dL (8.5-10.1); CARBON DIOXIDE 30.3 mmol/L (21.0-32.0); CREATININE - SERUM 1.7 mg/dL (0.6-1.3); POTASSIUM - SERUM 5.1 mmol/L (3.5-5.1)
[2020-04-12 10:11] LABS: BASOPHILS 0.6 % (0-2); EOSINOPHILS 3.9 % (0-7); HEMATOCRIT 30.7 % (36.0-48.0); HEMOGLOBIN 9.5 g/dL (12-16); IMMATURE GRANULOCYTES 4.4 % (0-5); LYMPHOCYTES 11.9 % (15-50); MCH 31.7 pg (26.0-34.0); MCHC 30.9 g/dL (31.0-37.0); MCV 102.3 fL (80.0-100.0); MEAN PLATELET VOLUME 9.3 fL (7.4-10.4); MONOCYTES 8.2 % (2-11); PLATELET COUNT 482 10x3/uL (130-400); RDW 15.4 % (11.5-14.5); WBC 7.2 10x3/uL (4.8-10.8)
--- NOTE | 2020-04-12 12:06 | NUR ---
PATIENT ADMITTED TO REHAB FROM ACUTE FLOOR. PATIENT PCP IS YENNI DANIELLE IN [place], DME AT HOME IS A WALKER, BEDSIDE COMMODE , C-PAP AND A WHEELCHAIR. PATIENT IS A CLIENT OF [facility] FROM [place]. DISCHARGE PLANS ARE FOR PATIENT TO RETURN HOME WITH FAMILY. WILL CONTINUE TO FOLLOW WITH PATIENT.
[2020-04-12 13:37] VITALS: Ht 157.5 cm; Wt 118.8 kg
--- NOTE | 2020-04-12 16:09 | NUR ---
RESTING QUIETLY IN BED WATCHING TV. STATES HER GAS HAS IMPROVED SINCE MEDS GIVEN EARLIER. TIRES EASILY. OXYGEN REMAINS ON 5L WITH SATS IN MID 90'S. ABLE TO SPEAK 4-6 WORDS PER BREATH. SHE HAS A VISITOR IN ROOM WITH HER. CALL LIGHT IN REACH
--- NOTE | 2020-04-12 19:33 | NUR ---
RESTING IN BED WITH EYES CLOSED AND RESPIRATIONS UNLABORED. NO DISTRESS NOTED. CHEST INCISION INTACT. RIGHT LEG DONOR SITE INTACT. O2/5L ON PER NASAL CANNULA HIGH FLOW. ABDOMEN DISTENDED WITH ACTIVE BOWEL SOUNDS. NO DISTRESS NOTED.
[2020-04-12 19:47] VITALS: BP 140/55
--- NOTE | 2020-04-13 01:20 | NUR ---
MEDICATED FOR PAIN. SEE SEP. ASSISTED UP TO [facility] HAD LARGE BM. NOW RESTING BACK IN BED WITH CPAP ON.
--- NOTE | 2020-04-13 05:39 | NUR ---
MEDICATED FOR PAIN IN ABDOMEN. SEE SEP. CPAP TURNED OFF PER HER REQUEST AND O2/5L PER HIGH FLOW PLACED ON. NO OTHER REQUESTS. NO ACUTE CHANGES IN CONDITION THIS SHIFT.
--- NOTE | 2020-04-13 19:25 | NUR ---
AWAKE AND ALERT. RESTING IN BED WITH O2/5L PER HIGH FLOW ON. STATES SHE FEELS OK BUT "HAD A LOT OF GAS TODAY" SHE SAYS THIS IS A CHRONIC PROBLEM AND HAS SEEN SEVERAL GI DOCTORS FOR THIS BUT NOTHING SEEMS TO HELP. ABDOMEN LARGE BUT SOFTLY DISTENDED. POST CABG INCISION INTACT WITH NO DRAINAGE OR OPEN AREAS. RIGHT LEG DONOR SITE INCISION INTACT WITH NO OPEN AREAS OR DRAINAGE. CPAP IN ROOM FOR USE AT HS. CALL LIGHT IN REACH.
[2020-04-13 20:00] VITALS: BP 114/64
--- NOTE | 2020-04-14 00:45 | NUR ---
SLEEPING WITH CPAP ON , NO DISTRESS NOTED.
--- NOTE | 2020-04-14 03:16 | NUR ---
VOMITED MODERATE AMOUNT OF LIQUID EMESIS WITH FOOD BITS, STATES HER STOMACH FEELS BETTER NOW. ASSISTED TO BSCC AND LINENS CHANGED. WANTS TO WEAR O2 AND OFF CPAP FOR NOW. WILL CONTINUE TO MONITOR.
--- NOTE | 2020-04-14 05:00 | NUR ---
ASSISTED UP TO [facility] AND BACK TO BED. NO FURTHER VOMITING. PASSING GAS AND BURPING A LOT. SHE STATES SHE THINKS IT IS FROM THE MILK AN ENSURE SHE HAD YESTERDAY. O2/5L ON PER HIGH FLOW. CALL LIGHT IN REACH.
[2020-04-14 09:27] VITALS: BP 117/67
[2020-04-14 19:39] VITALS: BP 175/100
--- NOTE | 2020-04-14 19:53 | NUR ---
AWAKE AND ALERT. O2/5L ON PER HIGH FLOW. ASSISTED TO BSCC AND BACK TO BED. BLOOD PRESSURE 175/100. DENIES CHEST PAIN. SHORT OF BREATH WITH MINIMAL EXERTION. WILL RECHECK BLOOD PRESSURE AFTER SHE LIES IN BED FOR A TIME. ABDOMEN SOFTLY DISTENDED WITH ACTIVE BOWEL SOUNDS IN ALL QUADRANTS. BELCHING AND PASSING GAS. CALL LIGHT IN REACH. WILL MONITOR.
--- NOTE | 2020-04-14 22:35 | NUR ---
RECHECK OF BLOOD PRESSURE IS 170/90. STILL HAS SOME ABDOMINAL PAIN. ASSISTED TO [facility] AND BACK TO BED. CPAP IN PLACE. WILL CONTINUE TO MONITOR
[2020-04-14 22:37] VITALS: BP 170/90
--- NOTE | 2020-04-15 01:01 | NUR ---
RESTING QUIETLY NOW WITH CPAP ON. NO DISTRESS NOTED.
--- NOTE | 2020-04-15 05:20 | NUR ---
RECEIVED BREATHING TREATMENT. WAS MEDICATED FOR C/O HEARTBURN. SEE SEP. TAKEN TO XRAY DEPARTMENT PER WHEELCHAIR AND NOW BACK TO BED WITH ASSISTANCE. O2/5L ON PER HIGH FLOW NC. CALL LIGHT IN REACH.
[2020-04-15 07:16] LABS: BASOPHILS 0.3 % (0-2); EOSINOPHILS 3.1 % (0-7); HEMATOCRIT 34.1 % (36.0-48.0); HEMOGLOBIN 10.6 g/dL (12-16); IMMATURE GRANULOCYTES 2.5 % (0-5); LYMPHOCYTES 13.9 % (15-50); MCH 31.4 pg (26.0-34.0); MCHC 31.1 g/dL (31.0-37.0); MCV 100.9 fL (80.0-100.0); MONOCYTES 8.7 % (2-11); NEUTROPHILS 71.5 % (40-80); PLATELET COUNT 454 10x3/uL (130-400); RBC 3.38 10x6/uL (4.00-5.40); RDW 15.5 % (11.5-14.5); WBC 6.7 10x3/uL (4.8-10.8)
[2020-04-15 07:24] LABS: ANION GAP 10.5 mmol/L (8-16); CALCIUM 9.2 mg/dL (8.5-10.1); CARBON DIOXIDE 30.9 mmol/L (21.0-32.0); CREATININE - SERUM 1.5 mg/dL (0.6-1.3); POTASSIUM - SERUM 4.4 mmol/L (3.5-5.1)
[2020-04-15 08:00] VITALS: BP 167/84
--- NOTE | 2020-04-15 12:57 | NUR ---
SITTING UP IN BED FINISHING LUNCH. WEARS OXYGEN 5LNC HIGH FLOW ALL THE TIME. ALSO WEARS CPAP NEEDED. SHE USES BED SIDE COMMODE THAT IS SITTING BY HER BED. SHE TIRES QUICKLY AND HAS POOR STRENGTH AND STAMINA. CHEST INCISION AND SMALL DRAIN INCISIONS ARE OPEN TO AIR. NO S/S INFECTION. SIDE RAILS UP X2, BED IN LOWEST POSITION, CALL LIGHT IN REACH
--- NOTE | 2020-04-15 13:08 | NUR ---
Nutrition Follow-up: Diet: Cardiac PO intake: ~50-75%. She states that her appetite is down currently. States that she is having a lot of gas pains and nausea. She had been ordering Ensure but she is afraid that may be causing some of her stomach pains. States that the doctor is going to give her some medicine to help. She states that she does not have diabetes. Last BM: 04/13/20 x 2. Wt: 262# (04/12/20) Meds noted: metamucil. Labs noted: Na 131(L), BUN 28(H), Cr 1.5(H), GFR 35(L), Glu 123(H). Recommend continue current diet for now. Will continue to monitor PO intake and blood sugars, may need to change to consistent CHO diet. Encouraged PO intake. RD following.
[2020-04-15 19:26] VITALS: BP 123/78
--- NOTE | 2020-04-15 19:35 | NUR ---
AWAKE AND ALERT. RESTING IN BED TALKING ON PHONE. O2/5L ON PER NASAL CANNULA. SHORT OF BREATH WITH MINIMAL EXERTION. NO ACUTE DISTRESS NOTED.
--- NOTE | 2020-04-16 01:27 | NUR ---
RESTING IN BED WITH CPAP ON. NO DISTRESS NOTED.
--- NOTE | 2020-04-16 03:37 | NUR ---
REQUEST CPAP OFF. O2/5L HIGH FLOW PLACED ON AFTER USING BSCC. RESTING WITH NO ACUTE DISTRESS NOTED.
--- NOTE | 2020-04-16 05:02 | NUR ---
ASSISTED TO BEDSIDE COMMODE AND BACK TO BED. REQUEST PAIN MEDICINE AND SOMETHING FOR CONSTIPATION. SEE SEP. O2/5L HF ON.
[2020-04-16 08:00] VITALS: BP 174/81
--- NOTE | 2020-04-16 08:00 | NUR ---
SHIFT ASSMT COMPLETED.
[2020-04-16 14:00] VITALS: BP 153/73
[2020-04-16 18:47] VITALS: BP 115/61
--- NOTE | 2020-04-16 18:48 | NUR ---
RECEIVED PT SITTING UP IN BED EYES CLOSED RESTING. EASILY AROUSED WITH VERBAL STIMULI. DENIES ANY NEEDS. CONTINUES ON 5L VIA HIGH FLOW NC. MIDSTERNAL INCISION, ABD INCISION X3, RLE INCISION WNL. CALL LIGHT WITHIN REACH. FALL PRECAUTIONS IN PLACE. CPOC
--- NOTE | 2020-04-16 19:40 | NUR ---
ASSISTED PT TO BSC WITH SBA.
--- NOTE | 2020-04-16 19:47 | NUR ---
SMALL HARD FORMED BM, PT STATES UNABLE TO HAVE BM REQUESTS MIRALAX WITH HS MEDS. ASSISTED WITH TRANSFER FROM BSC TO W/C WITH SBA. NO OTHER NEEDS VOICED. CALL LIGHT WITHIN REACH. CPOC
--- NOTE | 2020-04-16 23:05 | NUR ---
PT LYING IN BED EYES CLOSED RESTING. HOB ELEVATED. BIPAP ON. RR EVEN AND UNLABORED. CALL LIGHT WITHIN REACH. WILL CONTINUE TO MONITOR
--- NOTE | 2020-04-17 01:08 | NUR ---
PT LYING IN BED EYES CLOSED RESTING. HOB ELEVATED. BIPAP ON. RR EVEN AND UNLABORED. CALL LIGHT WITHIN REACH. CPOC
--- NOTE | 2020-04-17 02:35 | NUR ---
PT REQUEST BIPAP TAKEN OFF AND TUMS. BIPAP REMOVED, O2 @ 4L VIA HF NC ON. WILL ADMININSTER TUMS PER ORDER. NO OTHER NEEDS VOICED. WILL CONTINUE TO MONITOR
--- NOTE | 2020-04-17 04:11 | NUR ---
PT LYING IN BED EYES CLOSED RESTING. HOB ELEVATED. NO ACUTE DISTRESS NOTED. CALL LIGHT WITHIN REACH. WILL CONTINUE TO MONITOR
--- NOTE | 2020-04-17 05:05 | NUR ---
PT C/O NAUSEA THIS AM. EMESIS BAG AND COOL WASHCLOTH PROVIDED. WILL ADMINISTER MED FOR N/V PER ORDERS. NO OTHER NEEDS VOICED. WILL CONTINUE TO MONITOR
[2020-04-17 07:18] LABS: BASOPHILS 0.3 % (0-2); EOSINOPHILS 2.7 % (0-7); HEMATOCRIT 36.9 % (36.0-48.0); HEMOGLOBIN 11.4 g/dL (12-16); LYMPHOCYTES 13.1 % (15-50); MCHC 30.9 g/dL (31.0-37.0); MCV 100.3 fL (80.0-100.0); MEAN PLATELET VOLUME 9.3 fL (7.4-10.4); MONOCYTES 7.3 % (2-11); NEUTROPHILS 75.6 % (40-80); PLATELET COUNT 382 10x3/uL (130-400); RBC 3.68 10x6/uL (4.00-5.40); RDW 15.6 % (11.5-14.5); WBC 7.3 10x3/uL (4.8-10.8)
[2020-04-17 07:19] LABS: ANION GAP 7.6 mmol/L (8-16); CALCIUM 9.1 mg/dL (8.5-10.1); CARBON DIOXIDE 33.7 mmol/L (21.0-32.0); CREATININE - SERUM 1.5 mg/dL (0.6-1.3); POTASSIUM - SERUM 4.3 mmol/L (3.5-5.1)
[2020-04-17 07:23] VITALS: BP 141/75
--- NOTE | 2020-04-17 08:00 | NUR ---
SHIFT ASSMT COMPLETED.
--- NOTE | 2020-04-17 12:00 | NUR ---
EATING LUNCH.NO ABNORMAL BOWEL GAS PATTERN.WILL GIVE SALINE ENEMA.
--- NOTE | 2020-04-17 14:09 | NUR ---
CARE TEAM MEETING: PATIENT IS PROGRESSING IN THERAPY . TENATIVE DC DATE IS 04/25/20. WILL CONTINUE TO FOLLOW WITH PATIENT.
--- NOTE | 2020-04-17 18:45 | NUR ---
RECEIVED PT LYING IN BED EYES CLOSED RESTING QUIETLY. EASILY AROUSED WITH STIMULI. DENIES ANY NEEDS OR PAIN. RR EVEN AND UNLABORED. CONTINUES ON 4L VIA HF NC. MIDSTERNAL GLUED INCISION, SCABBED INCISION X3 ABDOMEN, AND RLE GLUED INCISION ALL WNL OPEN TO AIR. RIGHT SHOULDER IV WITHOUT REDNESS OR SWELLING. DRESSING INTACT. CALL LIGHT AND WATER WITHIN REACH. FALL PRECAUTIONS IN PLACE. CPOC
[2020-04-17 19:56] VITALS: BP 139/61
--- NOTE | 2020-04-17 22:15 | NUR ---
ASSISTED PT TO BSC WITH SBA.
--- NOTE | 2020-04-17 22:20 | NUR ---
300ML YELLOW URINE OUTPUT. ASSISTED BACK TO BED WITH SBA. HOB ELEVATED 30 DEGREES. PLACED BIPAP ON. NO OTHER NEEDS VOICED. CALL LIGHT WITHIN REACH. WILL CONTINUE TO MONITOR
--- NOTE | 2020-04-18 01:01 | NUR ---
PT LYING IN BED EYES CLOSED RESTING. HOB ELEVATED. BIPAP ON. RR EVEN AND UNLABORED. CALL LIGHT WITHIN REACH. FALL PRECAUTIONS IN PLACE. CPOC
--- NOTE | 2020-04-18 03:21 | NUR ---
PT LYING IN BED EYES CLOSED RESTING. BIPAP ON. RR EVEN AND UNLABORED. WILL CONTINUE TO MONITOR
--- NOTE | 2020-04-18 04:55 | NUR ---
ASSISTED PT TO BSC AND BACK TO BED WITH MIN ASSIST. 300ML YELLOW URINE. CONTINUES ON 4L VIA HF NC. CALL LIGHT WITHIN REACH. FALL PRECAUTIONS IN PLACE. CPOC
[2020-04-18 07:45] VITALS: BP 92/80
--- NOTE | 2020-04-18 08:00 | NUR ---
SITTING UP IN BED FOR BREAKFAST. WEARING OXYGEN HIGH FLOW AT 4L. ABD REMAINS LARGE AND DISTENDED. HAS HAD BM LAST NIGHT. INCISIONS INTACT WITH NO S/S INFECTION. SIDE RAILS UP X2. BED IN LOWEST POSITION. CALL LIGHT IN REACH.
--- NOTE | 2020-04-18 15:56 | NUR ---
SITTING IN WC IN THERAPY GYM. ON OXYGEN VIA HIGH FLOW NC. USES BED SIDE COMMODE IN ROOM DUE TO SEVERE SOB WITH EXERTION.
[2020-04-18 19:25] VITALS: BP 127/68
--- NOTE | 2020-04-18 19:40 | NUR ---
AWAKE AND ALERT. RESTING IN BED WITH O2/4L ON PER HIGH FLOW CANNULA. NO ACUTE DISTRESS NOTED. CALL LIGHT IN REACH.
--- NOTE | 2020-04-19 00:04 | NUR ---
MEDICATED FOR C/O GAS IN STOMACH. SEE MAR. BIPAP PLACED BACK ON.
--- NOTE | 2020-04-19 03:39 | NUR ---
RESTING WITH BIPAP ON. NO DISTRESS NOTED.
--- NOTE | 2020-04-19 04:57 | NUR ---
ASSISTED UP TO BSC AND BACK TO BED. DOESNT WANT CPAP BACK ON. O2/4L ON PER HF NASAL CANNULA. HEAD OF BED ELEVATED. CALL LIGHT IN REACH.
[2020-04-19 07:56] VITALS: BP 147/79
--- NOTE | 2020-04-19 08:00 | NUR ---
SITTING UP IN BED RESTING QUIETLY. EYES CLOSED. RESP EVEN AND NON LABORED. ON HIGH FLOW OXYGEN 4L. BED IN LOWEST POSITION, SIDE RAILS UP X2. CALL LIGHT IN REACH
[2020-04-19 08:49] LABS: ANION GAP 10.9 mmol/L (8-16); CALCIUM 8.9 mg/dL (8.5-10.1); CARBON DIOXIDE 28.8 mmol/L (21.0-32.0); CREATININE - SERUM 1.6 mg/dL (0.6-1.3); POTASSIUM - SERUM 4.7 mmol/L (3.5-5.1)
[2020-04-19 08:54] LABS: BASOPHILS 0.2 % (0-2); EOSINOPHILS 3.1 % (0-7); HEMATOCRIT 36.1 % (36.0-48.0); HEMOGLOBIN 11.2 g/dL (12-16); IMMATURE GRANULOCYTES 0.6 % (0-5); LYMPHOCYTES 10.4 % (15-50); MCH 31.2 pg (26.0-34.0); MCV 100.6 fL (80.0-100.0); MEAN PLATELET VOLUME 9.3 fL (7.4-10.4); MONOCYTES 8.7 % (2-11); PLATELET COUNT 328 10x3/uL (130-400); RBC 3.59 10x6/uL (4.00-5.40); RDW 15.6 % (11.5-14.5); WBC 8.1 10x3/uL (4.8-10.8)
--- NOTE | 2020-04-19 12:39 | NUR ---
SITTING UP IN BED FINISHING LUNCH. SHE STAYS IN BED ALMOST ALL THE TIME SHE IS NOT IN THERAPY DECLINING TO SIT IN WC OR REGULAR CHAIR FOR A WHILE. ABD IS LARGE AND FIRM. SHE C/O GAS PAIN TODAY. SHE IS SOB WITH MINIMAL EXERTION. BED IN LOWEST POSITION, SIDE RAILS UP X2. CALL LIGHT IN REACH
--- NOTE | 2020-04-19 12:42 | NUR ---
Nutrition Follow-up: Diet: Cardiac PO intake: previously ~25% average. Patient states that her appetite is much better now that MD prescribed her simethicone and protonix. She had eaten 75% of lunch yesterday (as recorded on the door) and appeared to be eating well at lunch today. She states that she is ordering and drinking Ensure with meals. Last BM: 04/17/20 x 2. Wt: 262# (04/12/20) Meds noted: protonix, simethicone (PRN), metamucil. Labs noted: Na 131(L), GFR 33(L) Recommend continue current diet. Encouraged PO intake and enocuraged patient to order oral nutrition supplements if she feels that she is not eating enough at meals. RD following.
--- NOTE | 2020-04-19 18:45 | NUR ---
RECEIVED PT SITTING UP IN BED. ALERT AND ORIENTED X4. C/O BURNING CRAMPING IN ABDOMINAL AREA 03/28. REQUESTS PAIN AND GAS MEDS. DENIES ANY OTHER NEEDS. SOB AT REST. CONTINUES ON 4L HF NC. NO CRACKLES OR WHEEZING HEARD WITH ASCULTATION. O2 SAT 96%. MID STERNAL, ABD, AND RLE INCISION WNL ALL OPEN TO AIR. CALL LIGHT AND WATER WITHIN REACH. FALL PRECAUTIONS IN PLACE. CPOC
[2020-04-19 20:22] VITALS: BP 131/65
--- NOTE | 2020-04-20 00:39 | NUR ---
PT LYING IN BED SUPINE EYES CLOSED RESTING QUIETLY. BIPAP ON AND FUNCTIONING PROPERLY. RR EVEN AND UNLABORED. HOB ELEVATED. CALL LIGHT WITHIN REACH. WILL CONTINUE TO MONITOR
--- NOTE | 2020-04-20 02:22 | NUR ---
PT REQUESTED PAIN MEDICATION /10 ACHING, BURNING, CRAMPING IN ABDOMEN. TRAMADOL ADMININSTERED WELL SIMETHICONE. PT DID NOT WANT BIPAP BACK ON PLACED 4L VIA HF NC ON. NO OTHER NEEDS VOICED. CALL LIGHT WITHIN REACH. WILL CONTINUE TO MONITOR
[2020-04-20 08:00] VITALS: BP 137/69
--- NOTE | 2020-04-20 08:00 | NUR ---
SHIFT ASSMT COMPLETED.
--- NOTE | 2020-04-20 18:53 | NUR ---
RECEIVED PT SITTING UP IN BED WATCHING TV. ALERT AND ORIENTED X4. DENIES ANY NEEDS OR PAIN. NO ACUTE DISTRESS NOTED. CONTINUES ON 4L HF NC. CALL LIGHT WITHIN REACH. FALL PRECAUTIONS IN PLACE. CPOC
[2020-04-20 20:00] VITALS: BP 148/75
--- NOTE | 2020-04-20 22:41 | NUR ---
PT LYING IN BED SUPINE EYES CLOSED RESTING. HOB ELEVATED. BIPAP ON. RR EVEN AND UNLABORED. CALL LIGHT WITHIN REACH. WILL CONTINUE TO MONITOR
--- NOTE | 2020-04-21 02:06 | NUR ---
PT LYING IN BED SUPINE EYES CLOSED RESTING. RR EVEN AND UNLABORED. WILL CONTINUE TO MONITOR
--- NOTE | 2020-04-21 05:31 | NUR ---
PT LYING IN BED SUPINE EYES CLOSED RESTING. BIPAP IN USE. RR EVEN AND UNLABORED. NO ACUTE CHANGES IN CONDITION THIS SHIFT. CALL LIGHT AND WATER WITHIN REACH. CPOC
[2020-04-21 08:00] VITALS: BP 152/90
--- NOTE | 2020-04-21 08:00 | NUR ---
SHIFT ASSMT COMPLETED.BREAKFAST GIVEN.CL IN REACH.
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
--- NOTE | 2020-04-21 18:45 | NUR ---
RECEIVED PT SITTING UP IN BED WATCHING TV. ALERT AND ORIENTED X4. C/O STOMACH BURNING/ACHING WITHOUT NAUSEA. SOB NOTED ON 4L HF NC. O2 SAT 96%. DENIES NEEDS OR TOILETING. CALL LIGHT AND WATER WITHIN REACH. FALL PRECAUTIONS IN PLACE. CPOC
[2020-04-21 20:15] VITALS: BP 156/83
--- NOTE | 2020-04-21 20:15 | NUR ---
SHIFT ASSESSMENT COMPLETE. VS STABLE. HS MEDS ADMININSTERED. DENIES ANY NEEDS. RESPIRATORY AT BEDSIDE. WILL CONTINUE TO MONITOR
--- NOTE | 2020-04-21 23:08 | NUR ---
PT LYING IN BED SUPINE EYES CLOSED RESTING. HOB ELEVATED. BIPAP IN USE. CALL LIGHT AND WATER WITHIN REACH. WILL CONTINUE TO MONITOR
--- NOTE | 2020-04-21 23:50 | NUR ---
ASSISTED TO BSC AND BACK TO BED WITH SBA. BRIEF CHANGED D/T STRESS INCONTINENCE. PERICARE DONE INDEPENDENTLY. PLACED BIPAP BACK ON. TRAMADOL 50MG, ZOFRAN AND TUMS ADMINISTERED PER PT REQUESTS. NO OTHER NEEDS VOICED. CALL LIGHT WITHIN REACH. FALL PRECAUTIONS IN PLACE. CPOC
--- NOTE | 2020-04-22 01:06 | NUR ---
PT LYING IN BED SUPINE EYES CLOSED RESTING. HOB ELEVATED. RESTLESS LEGS NOTED. RR EVEN AND UNLABORED. WILL CONTINUE TO MONITOR
--- NOTE | 2020-04-22 03:31 | NUR ---
PT LYING IN BED SUPINE EYES CLOSED RESTING. RR EVEN AND UNLABORED. WILL CONTINUE TO MONITOR
--- NOTE | 2020-04-22 05:51 | NUR ---
PT CALLED NEEDING RESTROOM ASSIST. ASSISTED TO BSC WITH SBA. COMPLETE LINEN CHANGED DONE D/T URINE INCONTINENCE. BRIEF CHANGED. PERICARE DONE INDEPENDENTLY. O2 @ 4L HF NC. C/O ABDOMINAL 5/10 ACHING BURNING AND LOWER BACK 4/10 ACHING PAIN. REQUEST PAIN MEDICATION AND SOMETHING FOR NAUSEA AND INDIGESTION. PT BACK IN BED. CALL LIGHT AND HYDRATION WITHIN REACH. FALL PRECAUTIONS IN PLACE. CPOC
[2020-04-22 07:15] LABS: BASOPHILS 0.3 % (0-2); EOSINOPHILS 4.3 % (0-7); HEMATOCRIT 39.5 % (36.0-48.0); HEMOGLOBIN 12.3 g/dL (12-16); IMMATURE GRANULOCYTES 0.4 % (0-5); LYMPHOCYTES 12.5 % (15-50); MCH 31.5 pg (26.0-34.0); MCHC 31.1 g/dL (31.0-37.0); MEAN PLATELET VOLUME 9.7 fL (7.4-10.4); MONOCYTES 9.9 % (2-11); NEUTROPHILS 72.6 % (40-80); PLATELET COUNT 316 10x3/uL (130-400); RBC 3.91 10x6/uL (4.00-5.40); RDW 15.6 % (11.5-14.5)
[2020-04-22 07:27] LABS: CALCIUM 9.2 mg/dL (8.5-10.1); CARBON DIOXIDE 30.9 mmol/L (21.0-32.0); CREATININE - SERUM 1.5 mg/dL (0.6-1.3); POTASSIUM - SERUM 4.9 mmol/L (3.5-5.1)
[2020-04-22 07:40] VITALS: BP 173/89
--- NOTE | 2020-04-22 15:38 | NUR ---
RESTING QUIETLY IN BED. HAD BEEN BURPING SOME BUT NOT PASSING GAS. STILL C/O FEELING FULL. REFUSED TO ROLL FROM SIDE/SIDE OR SIT UP ANY LONGER. STILL ON OXYGEN AND DENIES INCREASED SOB
[2020-04-22 19:29] VITALS: BP 146/78
--- NOTE | 2020-04-22 20:00 | NUR ---
AWAKE AND ALERT. RESTING IN BED WITH O2/4L ON PER HIGH FLOW CANNULA. NO DISTRESS NOTED. CHEST AND RIGHT LEG INCISION INTACT WITH SLIGHT SCABBING. NO OPEN AREAS. CALL LIGHT IN REACH.
--- NOTE | 2020-04-23 00:48 | NUR ---
RESTING IN BED WITH EYES CLOSED AND REPSIRATIONS UNLABORED. NO DISTRESS NOTED.
--- NOTE | 2020-04-23 02:28 | NUR ---
MEDICATED FOR C/O GENERALIZED PAIN. SEE MAR. CPAP IN PLACE.
--- NOTE | 2020-04-23 06:14 | NUR ---
QUIET HOURS. NO ACUTE CHANGES IN CONDITION THIS SHIFT. O2/4L ON PER HIGH FLOW CANNULA. CALL LIGHT IN REACH.
[2020-04-23 08:36] VITALS: BP 170/94
--- NOTE | 2020-04-23 13:21 | NUR ---
LAYING DOWN IN BED RESTING QUIETLY. EYES CLOSED. OXYGEN IN USE. HEAD OF BED ELEVATED APPX 60 DEGREES. BED IN LOWEST POSITION, CALL LIGHT IN REACH, SIDE RAILS UP X2
--- NOTE | 2020-04-23 14:24 | NUR ---
Nutrition Follow-up: Diet: Cardiac PO intake: ~67% average x last 6 meals recorded in EMR (04/20-04/21/20). She states that her appetite is down some. States that she is having a lot of gas and nausea still. Reports that last BM was this AM and that she is not feeling constipated currently. She ate 80% of breakfast tray today. Last BM: today per patient. Wt: 262# (04/12/20) Meds reviewed. Labs noted: Glu 113(H), GFR 35(L), BUN 27(H), Cr 1.5(H), Na 132(L) Recommend continue current diet. Hopefully patient can request PRN smethicone for gas relief. RD following.
--- NOTE | 2020-04-23 19:12 | NUR ---
AWKE AND ALERT. INCONTINENT OF BM. CHANGED PER DAY SHIFT NURSE. O2/4L ON PER HF CANNULA. NO DISTRESS NOTED.
[2020-04-23 20:11] VITALS: BP 150/86
--- NOTE | 2020-04-23 23:37 | NUR ---
REQUESTS CPAP OFF C/O NAUSEA. CPAP REMOVED AND O2/4L HF PLACED ON. NO VOMITING AT THIS TIME. ZOFRAN 4MG GIVEN PO AND TUMS X 2 GIVEN FOR PERSISTANT BURPING. WILL CONTINUE TO MONITOR.
--- NOTE | 2020-04-24 01:21 | NUR ---
RESTING IN BED NOW WITH CPAP BACK ON. NO FURTHER NAUSEA AT THIS TIME. WILL CONTINUE TO MONITOR.
--- NOTE | 2020-04-24 04:47 | NUR ---
PATIENT VOMITED 200ML OF LIQUID EMESIS. WILL CONTINUE TO MONITOR. HEAD OF BED ELEVATED.
[2020-04-24 07:23] VITALS: BP 177/76
[2020-04-24 07:24] LABS: BASOPHILS 0.3 % (0-2); EOSINOPHILS 3.1 % (0-7); IMMATURE GRANULOCYTES 0.3 % (0-5); LYMPHOCYTES 10.2 % (15-50); MCH 31.7 pg (26.0-34.0); MCHC 31.7 g/dL (31.0-37.0); MEAN PLATELET VOLUME 9.4 fL (7.4-10.4); MONOCYTES 9.9 % (2-11); NEUTROPHILS 76.2 % (40-80); PLATELET COUNT 298 10x3/uL (130-400); RDW 15.5 % (11.5-14.5); WBC 6.4 10x3/uL (4.8-10.8)
[2020-04-24 07:38] LABS: ANION GAP 10.9 mmol/L (8-16); CARBON DIOXIDE 32.9 mmol/L (21.0-32.0); CREATININE - SERUM 1.4 mg/dL (0.6-1.3); POTASSIUM - SERUM 4.8 mmol/L (3.5-5.1)
--- NOTE | 2020-04-24 08:00 | NUR ---
SHIFT ASSMT COMPLETED.C/O NAUSEA;UNABLE TO EAT BREAKFAST D/T VOMITING CL SMALL AMTS SINCE LAST NIGHT.REVIEWED WITH .FRANDY COLON.
--- NOTE | 2020-04-24 12:00 | NUR ---
DID GISELE THERAPY THIS AM.STATES ABD IS SETTLING SOME.NO MORE EMSIS NOTED.
--- NOTE | 2020-04-24 12:57 | NUR ---
CARE TEAM MEETING: PATIENT IS DOING WELL IN THERAPY AND WILL DC HOME 04/25/20 WITH FAMILY. WILL CONTINUE TO FOLLOW WITH PATIENT.
--- NOTE | 2020-04-24 18:52 | NUR ---
PT RESTING IN BED WITH EYES OPEN CALL LIGHT IN REACH WILL MONITER
--- NOTE | 2020-04-24 19:58 | NUR ---
PT IN BED WATCHING TV, C/O GAS UPSET, NO OTHER NEEDS NOTED, RESPIRATIONS EVEN/UNLABORED, SAFETY PRECAUTIONS IN PLACE, FLUIDS/CALL LIGHT WITHIN REACH
--- NOTE | 2020-04-24 20:57 | NUR ---
PT GIVEN SIMETHICONE FOR GAS UPSET, WILL CONTINUE TO MONITOR
--- NOTE | 2020-04-24 22:16 | NUR ---
PT C/O NAUSEA/UPSET STOMACH/GAS, ZOPHRAN AND TUMS GIVEN
[2020-04-24 22:50] VITALS: BP 120/64
--- NOTE | 2020-04-24 23:39 | NUR ---
PT ASLEEP,AROUSES EASILY TO VOICE, NO IMMEDIATE NEEDS NOTED, RESPIRATIONS EVEN/UNLABORED, SAFETY PRECAUTIONS IN PLACE, FLUIDS/CALL LIGHT WITHIN REACH
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
[2020-04-25 07:44] VITALS: BP 153/84
--- NOTE | 2020-04-25 08:57 | NUR ---
SHE IS ALERT, TALKING. HE SON IS HERE, WAITING TO BE DISCHARGED. SHE IS WEARING 4 LITERS O2 NC. THE CALL LIGHT IS WITHIN REACH.
--- NOTE | 2020-04-25 09:10 | NUR ---
PATIENT DISCHRGING HOME TODAY WITH FAMILY. [facility] WILL RESUME THERAPY AT HOME. NO NEW DME NEEDED AT THIS TIME. DAREN SIGNED, IMM SERVED AND EXPLAINED, ONE GIVEN TO PATIENT AND ONE FILED IN CHART. NO COMPARE DATA REVIEWED PATIENT IS A CLIENT OF [facility] AND WISHES TO CONTINUE WITH [facility].YENNI PRICE 04/26/20 @ 12:30, DR. PETERS 04/25/20 @ 10:30. DISCHARGE INSTRUCTIONS FAXED TO PCP, HOME HEALTH AND REVIEWED WITH PATIENT PER [facility] NURSE.
== END 2020-04-25 12:40 | disposition home health service (06) | DRG 91 ==
LOC: D.REHAB 16:58
PROVIDERS: ADMIT Emergency Medicine; ATTEND Emergency Medicine
DX: G72.81 Critical illness myopathy (principal); J96.01 Acute respiratory failure with hypoxia; I50.31 Acute diastolic (congestive) heart failure; Z68.43 Body mass index [BMI] 50.0-59.9, adult; J44.1 Chronic obstructive pulmonary disease with (acute) exacerbation; G47.33 Obstructive sleep apnea (adult) (pediatric); Z95.1 Presence of aortocoronary bypass graft; E66.01 Morbid (severe) obesity due to excess calories; R53.81 Other malaise; E78.5 Hyperlipidemia, unspecified; E11.9 Type 2 diabetes mellitus without complications; I11.0 Hypertensive heart disease with heart failure; D50.9 Iron deficiency anemia, unspecified; I25.10 Atherosclerotic heart disease of native coronary artery without angina pectoris

== ENCOUNTER → 2021-01-03 08:00 | Outpatient (CLI) | payer MEDICARE, OTHER ==
[2020-04-12 13:37] VITALS: BMI 47.9
[~2021-01-03 08:00] MED LIST changes: +AMIODARONE HCL200 MG PO
== END | disposition home or self-care (01) ==
LOC: D.NM 08:00
PROVIDERS: ATTEND Nurse Practitioner Family
DX: E21.3 Hyperparathyroidism, unspecified (principal)